=== PATIENT | male | born 1965 | race Caucasian/White ===

== ENCOUNTER 2018-03-21 20:31 | Emergency (ER) | payer OTHER ==
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
[2018-03-21 22:29] VITALS: BP 124/95; PULSE 94; RESP 18; TEMP 98.7
== END 2018-03-21 22:29 | disposition home or self-care (01) ==
LOC: EC 20:31
DX: S80.12XA Contusion of left lower leg, initial encounter (principal); G89.29 Other chronic pain; M54.5 Low back pain; F17.200 Nicotine dependence, unspecified, uncomplicated; Z88.6 Allergy status to analgesic agent; V49.49XA Driver injured in collision with other motor vehicles in traffic accident, initial encounter; Y92.410 Unspecified street and highway as the place of occurrence of the external cause
CPT/HCPCS: 71046; 72100; 99284

== ENCOUNTER 2021-02-12 09:46 | Emergency (ER) | payer OTHER ==
[2021-02-12 09:57] VITALS: RESP 18; TEMP 98.3
[2021-02-12] MEDS ORDERED: SODIUM CHLORIDE 0.9% 500 ML 500 ML IV STA (10:20)
[2021-02-12] MEDS ORDERED: KETOROLAC 15 MG/ML 1 ML VIAL IVP STA (10:20)
[2021-02-12 10:39] LABS: Basophils # (A) 0.1 k/uL (0-0.2); Basophils % (A) 1 %; Eosinophils # (A) 0.1 k/uL (0-0.7); Eosinophils % (A) 1 %; HCT 38.8 % (39.0-53.0); Lymphocytes # (A) 1.8 k/uL (1.0-4.8); Lymphocytes % (A) 23 %; MCH 33.4 pg (25.0-35.0); MCHC 36.1 g/dL (31.0-37.0); MCV 92.5 fL (80.0-100.0); Mean Platelet Volume 8.3; Monocytes # (A) 0.3 k/uL (0-1.0); Monocytes % (A) 4 %; Neutrophils # (A) 5.4 k/uL (1.3-7.7); Neutrophils % (A) 69 %; Platelet Count 152 k/uL (150-450); RDW 13.7 % (11.5-15.5); WBC 7.9 k/uL (3.8-10.6)
[2021-02-12 10:45] LABS: Appearance,Urine Clear (Clear); Bacteria,Urine Rare /hpf; Bilirubin,Urine Negative (Negative); Blood,Urine Large (Negative); Color,Urine Yellow; Glucose,Urine (UA) Negative (Negative); Hyaline Casts,Urine 1 /lpf (0-2); Ketones,Urine Trace (Negative); Leukocyte Esterase,Urine Negative (Negative); Mucus,Urine Few /hpf; Nitrite,Urine Negative (Negative); PH, Urine 6.5 (5.0-8.0); Protein,Urine Trace (Negative); RBC,Urine 149 /hpf (0-5); Specific Gravity,Urine 1.011 (1.001-1.035); Squamous Epithelial Cell,Urine <1 /hpf (0-4); WBC,Urine 8 /hpf (0-5)
--- NOTE | 2021-02-12 10:52 | ED ---
Male Urogenital HPI - General Chief complaint: Urogenital Stated complaint: Urogenital Time Seen by Provider: 02/12/21 10:05 Source: patient, family, RN notes reviewed Mode of arrival: wheelchair Limitations: no limitations - History of Present Illness Initial comments: Patient is a 55-year-old male presenting to the emergency Department with complaints of hematuria has been intermittent over the past 2-3 days. Patient is also been having some back pain that is out of the ordinary for him. He did go to [facility] last week for the back pain that, they did do x-rays, no acute findings, they gave him lidocaine patches as well as Aleve. He states he continues to have back pain and the hematuria started. He denies any abdominal pain, no nausea or vomiting, no fevers or chills. He has been having some body aches. No cough or congestion. He's never had this issue in the past. He takes no other medications. He has no further complaints. His vitals are stable upon arrival. - Related Data Previous Rx's Medication Instructions Recorded HYDROcodone/APAP 5-325MG [[place] 1 tab PO Q6HR PRN #12 tab 03/21/18 5-325] Allergies Allergy/AdvReac Type Severity Reaction Status Date / Time No Known Allergies Allergy Verified 02/12/21 09:56 Review of Systems ROS Statement: Those systems with pertinent positive or pertinent negative responses have been documented in the HPI. ROS Other: All systems not noted in ROS Statement are negative. Past Medical History Past Medical History: Hypertension History of Any Multi-Drug Resistant Organisms: None Reported Past Surgical History: No Surgical Hx Reported Past Psychological History: No Psychological Hx Reported Smoking Status: Current every day smoker Past Alcohol Use History: Occasional Past Drug Use History: Marijuana General Exam - General Exam Comments Initial Comments: GENERAL: Patient is well-developed and well-nourished. Patient is nontoxic and in no acute distress. HEAD: Atraumatic, normocephalic. EYES: Pupils equal round and reactive to light, extraocular movements intact, sclera anicteric, conjunctiva are normal. Eyelids were unremarkable. ENT: Moist mucous membranes. NECK: Normal range of motion, supple without lymphadenopathy or JVD. LUNGS: Unlabored respirations. Breath sounds clear to auscultation bilaterally and equal. No wheezes rales or rhonchi. HEART: Regular rate and rhythm without murmurs, rubs or gallops. ABDOMEN: Soft, nontender, normoactive bowel sounds. No guarding, no rebound. No masses appreciated. MUSCULOSKELETAL: Normal extremities with adequate strength and normal range of motion, no pitting or edema. No clubbing or cyanosis. NEUROLOGICAL: Patient is alert and oriented x 3. SKIN: Warm, Dry, normal turgor, no rashes or lesions noted. Limitations: no limitations Course Vital Signs 02/12/21 09:54 Temperature 98.3 F Pulse Rate 73 Respiratory 18 Rate Blood Pressure 131/81 O2 Sat by Pulse 96 Oximetry Medical Decision Making - Medical Decision Making Patient is a 55-year-old male here for hematuria over the past couple days. No abdominal pain, no fevers or chills. He's never had this before. He's been also having low back pain is out of the ordinary for him. His vitals are stable upon arrival. Urine shows large amount of blood, 8 wbc's, rare bacteria. Ultrasound reveals a thickened bladder wall cholecystitis, an enlarged irregular prostate. I discussed these findings with the patient. I recommended following up with urology. I will give him some Zofran for his nausea. He is agreeable to this plan of care. He will continue taking Tylenol and/or Motrin for his back pain. Return parameters were discussed with him and he verbalized understanding. Case discussed with Dr. Bryant. - Lab Data Result diagrams: 02/12/21 10:22 02/12/21 10:22 Lab Results 02/12/21 02/12/21 02/12/21 Range/Units 10:22 10:22 10:22 WBC 7.9 (3.8-10.6) k/uL RBC 4.20 L (4.30-5.90) m/uL Hgb 14.0 (13.0-17.5) gm/dL Hct 38.8 L (39.0-53.0) % MCV 92.5 (80.0-100.0) fL MCH 33.4 (25.0-35.0) pg MCHC 36.1 (31.0-37.0) g/dL RDW 13.7 (11.5-15.5) % Plt Count 152 (150-450) k/uL MPV 8.3 Neutrophils % 69 % Lymphocytes % 23 % Monocytes % 4 % Eosinophils % 1 % Basophils % 1 % Neutrophils # 5.4 (1.3-7.7) k/uL Lymphocytes # 1.8 (1.0-4.8) k/uL Monocytes # 0.3 (0-1.0) k/uL Eosinophils # 0.1 (0-0.7) k/uL Basophils # 0.1 (0-0.2) k/uL Sodium 135 L (137-145) mmol/L Potassium 3.4 L (3.5-5.1) mmol/L Chloride 100 (98-107) mmol/L Carbon Dioxide 27 (22-30) mmol/L Anion Gap 8 mmol/L BUN 11 (9-20) mg/dL Creatinine 0.53 L (0.66-1.25) mg/dL Est GFR (CKD-EPI)AfAm >90 (>60 ml/min/1.73 sqM) Est GFR (CKD-EPI)NonAf >90 (>60 ml/min/1.73 sqM) Glucose 121 H (74-99) mg/dL Calcium 9.5 (8.4-10.2) mg/dL Total Bilirubin 0.8 (0.2-1.3) mg/dL AST 122 H (17-59) U/L ALT 37 (4-49) U/L Alkaline Phosphatase 355 H (38-126) U/L Total Protein 7.0 (6.3-8.2) g/dL Albumin 3.7 (3.5-5.0) g/dL Urine Color Yellow Urine Appearance Clear (Clear) Urine pH 6.5 (5.0-8.0) Ur Specific [place] 1.011 (1.001-1.035) Urine Protein Trace H (Negative) Urine Glucose (UA) Negative (Negative) Urine Ketones Trace H (Negative) Urine Blood Large H (Negative) Urine Nitrite Negative (Negative) Urine Bilirubin Negative (Negative) Urine Urobilinogen 6.0 (<2.0) mg/dL Ur Leukocyte Esterase Negative (Negative) Urine RBC 149 H (0-5) /hpf Urine WBC 8 H (0-5) /hpf Ur Squamous Epith Cells <1 (0-4) /hpf Urine Bacteria Rare H (None) /hpf Hyaline Casts 1 (0-2) /lpf Urine Mucus Few H (None) /hpf Disposition Clinical Impression: Hematuria Disposition: HOME SELF-CARE Condition: Stable Instructions (If sedation given, give patient instructions): Hematuria (ED) Additional Instructions: Please return to the Emergency Department if symptoms worsen or any other c oncerns. May take Zofran for any additional nausea or vomiting. Please follow up with urology concerning the blood in your urine. Is patient prescribed a controlled substance at d/c from ED?: No Referrals: None,Stated [Primary Care Provider] - 1-2 days Basil Gill MD [STAFF PHYSICIAN] - 1-2 days Time of Disposition: 12:06
[2021-02-12 10:56] LABS: ALT 37 U/L (4-49); AST 122 U/L (17-59); African American GFR (CKD) >90 (>60 ml/min/1.73 sqM); Albumin 3.7 g/dL (3.5-5.0); Alkaline Phosphatase 355 U/L (38-126); Anion Gap 8 mmol/L; Blood Urea Nitrogen 11 mg/dL (9-20); Calcium 9.5 mg/dL (8.4-10.2); Carbon Dioxide 27 mmol/L (22-30); Chloride 100 mmol/L (98-107); Glucose 121 mg/dL (74-99); Non-African American GFR(CKD) >90 (>60 ml/min/1.73 sqM); Potassium 3.4 mmol/L (3.5-5.1); Sodium 135 mmol/L (137-145); Total Bilirubin 0.8 mg/dL (0.2-1.3)
--- NOTE | 2021-02-12 11:38 | US ---
EXAMINATION TYPE: US kidneys/renal and bladder DATE OF EXAM: 02/12/2021 COMPARISON: NONE CLINICAL HISTORY: back pain, hematuria. EXAM MEASUREMENTS: Right Kidney: 11.3x5.6x5.1 cm Left Kidney: 12.0x5.4x6.5 cm Prominent prostate 4.8x5.5x4.7cm Right Kidney: Scarring seen throughout, Inf/ Med cyst with septation =1.3x1.1x1.3cm Left Kidney: No hydronephrosis or masses seen Bladder: Wall appears thickened measuring 0.5cm Bilateral Jets seen: No IMPRESSION: 1. Thickened bladder wall correlate for cystitis. 2. There is a ly enlarged and irregular prostate correlate with PSA. 3. Defect involving the right kidney with septation most likely related to cyst.
[2021-02-12] MEDS ORDERED: ONDANSETRON 4 MG ODT STARTER PACK 2 TAB BTL PO STA (12:06)
[2021-02-12 12:30] VITALS: BP 136/88; PULSE 79
== END 2021-02-12 12:30 | disposition home or self-care (01) ==
LOC: EC 09:46
DX: R31.9 Hematuria, unspecified (principal); I10 Essential (primary) hypertension; F17.200 Nicotine dependence, unspecified, uncomplicated; F12.90 Cannabis use, unspecified, uncomplicated
CPT/HCPCS: 99284; 96374; 36415; 80053; 85025; 81001; 76770; J1885; S0119

== ENCOUNTER → 2021-02-24 | Outpatient (CLI) | payer OTHER ==
[2021-02-24 09:10] LABS: African American GFR (CKD) >90 (>60 ml/min/1.73 sqM); Blood Urea Nitrogen 16 mg/dL (9-20); Non-African American GFR(CKD) >90 (>60 ml/min/1.73 sqM)
--- NOTE | 2021-02-24 10:43 | CT ---
EXAMINATION TYPE: CT urogram wo/w con DATE OF EXAM: 02/24/2021 COMPARISON: 02/12/2021 ultrasound HISTORY: Gross hematuria CT DLP: 1040.3 mGycm, Automated Exposure Control for Dose Reduction was Utilized. CONTRAST: CT scan of the abdomen and pelvis is performed with oral and with IV Contrast, patient injected with 100 mL of Isovue 300. FINDINGS: LUNG BASES: There are multiple pulmonary nodules seen involving the lung base. The largest measures 1 cm. Emphysematous changes involving the lung bases. LIVER/GB: No significant abnormality is appreciated. PANCREAS: No significant abnormality is seen. SPLEEN: No significant abnormality is seen. ADRENALS: No significant abnormality is seen. KIDNEYS: There is a 1 cm right renal lesion which measures 18 Hounsfield units. No hydronephrosis or nephrolithiasis. Ureters are segmentally demonstrated to be of normal course and caliber with no defi nite filling defect. On noncontrast exam there is a suggestion of thickening along the posterior bladder wall and areas of abnormal attenuation which could represent neoplasm or hemorrhage. BOWEL: No significant abnormality is seen. PROSTATE/SEMINAL VESICLES: There is enlargement of the prostate gland.. LYMPH NODES: No greater than 1cm abdominal or pelvic lymph nodes are appreciated. OSSEOUS STRUCTURES: No significant abnormality is seen. OTHER: No significant additional abnormality is seen. IMPRESSION: 1. Right renal lesion measures 18 Hounsfield units and does not meet the criteria of simple cyst eloisa mmend MRI. 2. Prostate hypertrophy correlate with PSA. 3. There are multiple pulmonary nodules involving the lung bases. Dedicated CT of the chest is recomm ended for further evaluation. 4. There is abnormal attenuation within the bladder could represent hemorrhage or mass recommend cyst oscopy.
== END | disposition home or self-care (01) ==
LOC: RADCTMAIN 08:16
PROVIDERS: ATTEND Urology
DX: N28.9 Disorder of kidney and ureter, unspecified (principal); N40.0 Benign prostatic hyperplasia without lower urinary tract symptoms; R93.41 Abnormal radiologic findings on diagnostic imaging of renal pelvis, ureter, or bladder; R91.8 Other nonspecific abnormal finding of lung field
CPT/HCPCS: 82565; 84520; 74178; 36415; 74400; Q9967

== ENCOUNTER 2021-03-04 06:09 | Inpatient (IN) | payer OTHER ==
--- NOTE | 2021-03-03 17:02 | P.HPIHPCON ---
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 Discussed with him given this finding I recommend proceeding with a TURP, TURBT to obtain tissue from the prostate and the bladder to assess for prostate versus bladder cancer. Discussed with him the risk of bleeding, infection, urinary incontinence, potential of needing additional procedure. Discussed with him given the extensive involvement of the prostate potential of major bleeding. Discussed also with him if significant bleeding is encountered then we'll do partial resection and await final pathology. He understood all the risk and agreed to proceed with a TURBT/TURP Consent for Procedure: I have explained the operation/procedure to the patient, including the risks, benefits, side effects, alternative therapies (including not receiving the proposed treatment or service), the likelihood of the patient achieving his/her goals, and potential recuperation problems for the procedure/sedation/analgesia, as well as any blood products, if indicated. I also explained to the patient the risks, benefits and side effects of the alternatives, as well as the risks related to not receiving the proposed procedure, care, treatment, or services. Past Medical History Past Medical History: Osteoarthritis (OA), Prostate Disorder Additional Past Medical History / Comment(s): Enlarged Prostate. History of Any Multi-Drug Resistant Organisms: None Reported Past Surgical History: Orthopedic Surgery Additional Past Surgical History / Comment(s): Knee scope. Past Anesthesia/Blood Transfusion Reactions: No Reported Reaction Past Psychological History: No Psychological Hx Reported Smoking Status: Current every day smoker Past Alcohol Use History: Occasional Additional Past Alcohol Use History / Comment(s): Has been smoking 10+ yrs, 1ppd. Past Drug Use History: None Reported - Past Family History Mother Family Medical History: No Reported History Medications and Allergies Home Medications Medication Instructions Recorded Confirmed Type Ibuprofen 600 mg PO Q8H 02/27/21 02/27/21 History Naproxen [Naprosyn] 500 mg PO BID 02/27/21 02/27/21 History Tamsulosin [Flomax] 0.4 mg PO DAILY 02/27/21 02/27/21 History Allergies Allergy/AdvReac Type Severity Reaction Status Date / Time tramadol [From Ultram] Allergy Nausea Verified 02/27/21 09:52 Surgical - Exam - General no distress, no pain - Eyes PERRL, normal ocular movement - ENT normal nares, normal mucosa - Respiratory normal expansion, normal respiratory effort Assessment and Plan Assessment: OR for a TURP/TURBT
[~2021-03-04 06:09] MED LIST: DEXAMETHASONE SOD PHOSPHATE 4 MG/ML 1 ML VIAL IV ONE; LACTATED RINGERS 1,000 ML IV SCH; LIDOCAINE 1% (10MG/ML) FOR IV START INTRADERMA PRN; MIDAZOLAM 2 MG/2 ML VIAL IV PRN; ONDANSETRON 4 MG/2 ML VIAL IVP ONE
[2021-03-04] MEDS ORDERED: HYDROmorphone 0.5 MG/0.5 ML SYRINGE IVP PRN (07:00)
[2021-03-04] MEDS ORDERED: SUGAMMADEX SODIUM 500 MG/5 ML SDV IV ONE (07:30)
[2021-03-04] MEDS ORDERED: .fentaNYL (PF) 50 MCG/ML 2 ML AMP ONE (07:30)
[2021-03-04] MEDS ORDERED: MIDAZOLAM 2 MG/2 ML VIAL ONE (07:30)
[2021-03-04] MEDS ORDERED: GLYCOPYRROLATE 0.2 MG/ML 2 ML VIAL ONE (07:30)
[2021-03-04] MEDS ORDERED: PROPOFOL 10 MG/ML 20 ML VIAL IV ONE (07:30)
[2021-03-04] MEDS ORDERED: KETAMINE 10 MG/ML 20 ML VIAL ONE (07:30)
[2021-03-04] MEDS ORDERED: ROCURONIUM 10 MG/ML (5 ML VIAL) IV ONE (07:30)
[2021-03-04] MEDS ORDERED: NEOSTIGMINE 1 MG/ML 10 ML VIAL ONE (07:30)
[2021-03-04] MEDS ORDERED: SUCCINYLCHOLINE CHLORIDE 100 MG/5 ML SYR IV ONE (07:30)
[2021-03-04] MEDS ORDERED: PHENYLEPHRINE-0.9% NACL SYG 1,000 MCG/10 ML SYRINGE ONE (07:30)
[2021-03-04] MEDS ORDERED: LIDOCAINE 1% INJ 10MG/ML (20 ML MDV) ONE (07:30)
[2021-03-04 07:58] LABS: Calcium 7.9 mg/dL (8.4-10.2); Potassium 5.4 mmol/L (3.5-5.1)
[2021-03-04] MEDS ORDERED: LACTATED RINGERS 1,000 ML IV ONE (08:38)
[2021-03-04] MEDS ORDERED: IOPAMIDOL-300 50ML BTL MISCELLANE ONE (08:44)
[2021-03-04] MEDS ORDERED: BELLADONNA-OPIUM 16.2-60 MG 1 EACH SUPP RECTAL PRN (09:27)
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
--- NOTE | 2021-03-04 10:32 | FL ---
Fluoroscopy HISTORY: Bladder tumor 2 seconds fluoroscopy time supplied to the referring clinician. 1 intraoperative C-arm images docume nt the procedure. See dictated report from urology.
[2021-03-04] MEDS ORDERED: SODIUM CHLORIDE 0.9% 1,000 ML IV ONE (10:39)
[2021-03-04 11:28] LABS: Albumin 3.5 g/dL (3.5-5.0); Potassium 5.5 mmol/L (3.5-5.1); Total Bilirubin 0.5 mg/dL (0.2-1.3); Total Protein 6.5 g/dL (6.3-8.2)
[2021-03-04 12:30] LABS: Glucose,Whole Blood 142 mg/dL (75-99)
[2021-03-04] MEDS: SODIUM CHLORIDE 0.9% 1,000 ML IV SCH ×2 (13:44→20:12)
[2021-03-04 15:16] LABS: Calcium 7.7 mg/dL (8.4-10.2)
--- NOTE | 2021-03-04 15:36 | P.CNPUL ---
History of Present Illness Consult date: 03/04/21 Requesting physician: Basil Gill Reason for consult: other Chief complaint: Hyponatremia, renal failure. History of present illness: Pulmonary/critical care consultation dated 03/04/2021. 55-year-old male who was seen by urology recently for gross hematuria. Today, the patient underwent a TURBT, TURP, clot evacuation, and cystogram. The patient had a bladder tumor which apparently was invading the prostate. I was called by the urologist after the procedure to asked whether or not the patient could be watched more closely in the intensive care unit. The patient was found to have a sodium of 123, in addition, the patient's BUN was 155 with a creatinine of 10.32. For these reasons, the patient was placed in the intensive care unit. The patient's on room air. The patient's getting saline at 130 mL an hour. He'll be seen by nephrology. The patient was found to have a papilla ry tumor ask any from the bladder neck and involving the entire prostate. Laboratory data includes a sodium 127, potassium 4, chlorides 92, CO2 20, anion gap 15, down from 25, and a BUN and creatinine was at 124 and 6.76. Calcium is 7.7. Review of Systems REVIEW OF SYSTEMS: CONSTITUTIONAL: [Negative.] NEUROLOGIC: [ Negative.] HEENT: [ Negative.] CARDIAC: [Negative.] PULMONARY: [Negative.] GI: [Negative.] : Urinary retention. RHEUMATOLOGIC: [ Negative.] IMMUNOLOGIC: [ Negative.] ENDOCRINE: [Negative. ] DERMATOLOGIC: [Negative.] Past Medical History Past Medical History: Osteoarthritis (OA), Prostate Disorder Additional Past Medical History / Comment(s): Enlarged Prostate. History of Any Multi-Drug Resistant Organisms: None Reported Past Surgical History: Orthopedic Surgery Additional Past Surgical History / Comment(s): Knee scope. Past Anesthesia/Blood Transfusion Reactions: No Reported Reaction Past Psychological History: No Psychological Hx Reported Smoking Status: Current every day smoker Past Alcohol Use History: Occasional Additional Past Alcohol Use History / Comment(s): Has been smoking 10+ yrs, 1ppd. Past Drug Use History: None Reported - Past Family History Mother Family Medical History: No Reported History Medications and Allergies Home Medications Medication Instructions Recorded Confirmed Type Ibuprofen 600 mg PO Q8H 02/27/21 03/04/21 History Naproxen [Naprosyn] 500 mg PO BID 02/27/21 03/04/21 History Tamsulosin [Flomax] 0.4 mg PO DAILY 02/27/21 03/04/21 History Allergies Allergy/AdvReac Type Severity Reaction Status Date / Time tramadol [From Ultram] Allergy Nausea Verified 03/04/21 06:52 Physical Exam Osteopathic Statement: *. No significant issues noted on an osteopathic structural exam other than those noted in the History and Physical/Consult. Vitals: Vital Signs Temp Pulse Pulse Pulse Resp BP BP 03/04/21 15:00 105 H 12 145/79 03/04/21 14:00 112 H 13 129/79 03/04/21 13:00 112 H 17 120/98 03/04/21 12:30 97.6 F 110 H 13 120/87 03/04/21 12:15 102 H 16 134/80 03/04/21 12:00 102 H 16 134/80 03/04/21 11:45 97 16 136/76 03/04/21 11:30 98 16 136/79 03/04/21 11:18 98 16 135/84 03/04/21 11:01 93 16 143/78 03/04/21 10:45 97 16 149/79 03/04/21 10:30 103 H 16 141/87 03/04/21 10:15 109 H 16 123/81 03/04/21 10:00 95 14 137/73 03/04/21 09:42 97 F L 90 14 129/71 03/04/21 06:58 97.6 F 107 H 18 137/71 Pulse Ox 03/04/21 15:00 96 03/04/21 14:00 95 03/04/21 13:00 97 03/04/21 12:30 96 03/04/21 12:15 96 03/04/21 12:00 96 03/04/21 11:45 96 03/04/21 11:30 96 03/04/21 11:18 96 03/04/21 11:01 95 03/04/21 10:45 95 03/04/21 10:30 95 03/04/21 10:15 100 03/04/21 10:00 99 03/04/21 09:42 99 03/04/21 06:58 98 Intake and Output 03/04/21 03/04/21 03/04/21 06:59 14:59 22:59 Intake Total 910 130 Output Total 3220 Balance -2310 130 Intake: IV 910 130 Sodium Chloride 0.9% 1, 260 130 000 ml @ 130 mls/hr IV . Q7H42M [facility] Rx#:[id number] Output: Urine 3200 Estimated Blood Loss 20 Other: Voiding Method Indwelling Catheter Weight 56.3 kg 56.3 kg No acute distress, oriented 3. The patient is not on any supplemental oxygen. HEENT examination is grossly unremarkable. Neck supple. Full range of motion. No adenopathy thyromegaly or neck vein distention. Cardiovascular examination reveals regular rhythm rate. S1-S2 normal. No S3 or S4. No discernible murmur noted. Heart rate 105 bpm. Lungs reveal clear breath sounds. Breath sounds are equal bilaterally. No adventitious lung sounds including wheezes rhonchi or crackles. Room air saturations are 96-97%. Abdomen soft bowel sounds are heard. No masses or tenderness. Extremities are intact. No cyanosis clubbing or edema. Skin is without rash or lesion. Neurologic examination is brief but nonfocal. Results - Laboratory Findings CBC and BMP: 03/04/21 14:31 Abnormal lab findings: Abnormal Labs 03/04/21 03/04/21 03/04/21 07:07 10:29 12:28 Sodium 121 L 123 L Potassium 5.4 H 5.5 H Chloride 84 L 88 L Carbon Dioxide 12 L 16 L BUN 165 H* 155 H* Creatinine 12.10 H* 10.32 H* Glucose 134 H 137 H POC Glucose (mg/dL) 142 H Calcium 7.9 L 8.0 L AST 102 H Alkaline Phosphatase 611 H 03/04/21 14:31 Sodium 127 L Potassium Chloride 92 L Carbon Dioxide 20 L BUN 124 H* Creatinine 6.76 H Glucose 203 H POC Glucose (mg/dL) Calcium 7.7 L AST Alkaline Phosphatase Assessment and Plan Assessment: Postop day #0, status post TURBT, TURP, cystogram, and clot evacuation, secondary to a bladder tumor. Hyponatremia. New onset acute kidney injury/renal failure. History of BPH. History of osteoarthritis. History of ongoing tobacco use with nicotine addiction. Plan: Plan dated 03/04/2021. The patient's resting comfortably in the intensive care unit. He is not requiring any supplemental oxygen. He is getting saline at 130 mL an hour. His renal function is improving. His anion gap is improving. The patient is not having any pain or discomfort. We will continue to follow and make recommendations where appropriate. Also, the patient's sodium is correcting. Additional recommendations and suggestions are forthcoming. Time with Patient: Greater than 30
[2021-03-04] MEDS ORDERED: ceFAZolin 1 GM in SODIUM CHLORIDE 0.9% 100 ML IVPB SCH (16:00)
[2021-03-05] MEDS: SODIUM CHLORIDE 0.45% 1,000 ML IV SCH ×3 (00:40→21:25)
[2021-03-05] MEDS: TAMSULOSIN 0.4 MG CAP.ER.24H PO SCH (08:52)
[2021-03-05 09:53] LABS: Albumin 2.6 g/dL (3.5-5.0); Calcium 8.1 mg/dL (8.4-10.2); Potassium 3.8 mmol/L (3.5-5.1); Total Bilirubin 0.3 mg/dL (0.2-1.3); Total Protein 5.1 g/dL (6.3-8.2)
--- NOTE | 2021-03-05 12:13 | P.PN ---
Progress Note - Text Progress Note Date: 03/05/21 Mr. Escoto underwent TURP, TURBT, and evacuation of clot yesterday. His serum creatinine level has improved dramatically and was 1.38 today. The Jurado catheter is draining blood-tinged urine, as expected. He has no complaints and is urologically stable.
--- NOTE | 2021-03-05 12:19 | P.PN ---
Subjective Progress Note Date: 03/05/21 55-year-old male who was seen by urology recently for gross hematuria. Today, the patient underwent a TURBT, TURP, clot evacuation, and cystogram. The patient had a bladder tumor which apparently was invading the prostate. I was called by the urologist after the procedure to asked whether or not the patient could be watched more closely in the intensive care unit. The patient was found to have a sodium of 123, in addition, the patient's BUN was 155 with a creatinine of 10.32. For these reasons, the patient was placed in the intensive care unit. The patient's on room air. The patient's getting saline at 130 mL an hour. He'll be seen by nephrology. 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 Laboratory data includes a sodium 127, potassium 4, chlorides 92, CO2 20, anion gap 15, down from 25, and a BUN and creatinine was at 124 and 6.76. Calcium is 7.7. The patient is seen today 03/05/2021 in follow-up in the intensive care unit. He is currently sitting up in bed. Awake and alert in no acute distress. Postoperative day #1. He is maintaining good O2 saturations in the 90s on room air. He has 0.45 normal saline at 125 ML's per hour. His sodium is 131. Potassium 3.8. BUN 55. Creatinine down to 1.3. Glucose 183. AST 107. ALT 16. Alk phos 363. Pathology pending. Objective - Vital Signs Vital signs: Vital Signs Temp 97.7 F 03/05/21 04:00 Pulse 152 H 03/05/21 10:00 Resp 40 H 03/05/21 10:00 BP 135/80 03/05/21 09:00 Pulse Ox 97 03/05/21 10:00 Intake & Output 03/04/21 03/05/21 03/05/21 18:59 06:59 18:59 Intake Total 1780 1885 375 Output Total 6646 2918 600 Balance -1516 -4691 -431 Weight 56.3 kg 57.2 kg Intake: IV 1430 1645 375 Sodium Chloride 0.45% 1, 1125 375 000 ml @ 125 mls/hr IV . Q8H [facility] Rx#:[id number] Sodium Chloride 0.9% 1, 780 520 000 ml @ 130 mls/hr IV . Q7H42M [facility] Rx#:[id number] Oral 100 240 Blood Product 250 Output: Urine 4175 3275 600 Estimated Blood Loss 20 Other: Voiding Method Indwelling Catheter Indwelling Catheter Indwelling Catheter - Exam GENERAL EXAM: Alert, active, comfortable in no apparent distress. HEAD: Normocephalic. EYES: Normal reaction of pupils, equal size. NOSE: Clear with pink turbinates. THROAT: No erythema or exudates. NECK: No masses, no JVD. CHEST: No chest wall deformity. LUNGS: Equal air entry with no crackles, wheeze, rhonchi or dullness. CVS: S1 and S2 normal with no audible murmur, regular rhythm. ABDOMEN: No hepatosplenomegaly, normal bowel sounds, no guarding or rigidity. SPINE: No scoliosis or deformity SKIN: No rashes CENTRAL NERVOUS SYSTEM: No focal deficits, tone is normal in all 4 extremities. EXTREMITIES: There is no peripheral edema. No clubbing, no cyanosis. Peripheral pulses are intact. - Labs CBC & Chem 7: 03/05/21 09:10 Labs: Abnormal Lab Results - Last 24 Hours (Table) 03/04/21 03/04/21 03/05/21 Range/Units 12:28 14:31 09:10 Sodium 127 L 131 L (137-145) mmol/L Chloride 92 L (98-107) mmol/L Carbon Dioxide 20 L (22-30) mmol/L BUN 124 H* 55 H (9-20) mg/dL Creatinine 6.76 H 1.38 H (0.66-1.25) mg/dL Glucose 203 H 183 H (74-99) mg/dL POC Glucose (mg/dL) 142 H (75-99) mg/dL Calcium 7.7 L 8.1 L (8.4-10.2) mg/dL AST 107 H (17-59) U/L Alkaline Phosphatase 363 H (38-126) U/L Total Protein 5.1 L (6.3-8.2) g/dL Albumin 2.6 L (3.5-5.0) g/dL Assessment and Plan Assessment: 1 Postop day #1, status post TURBT, TURP, cystogram, and clot evacuation, secondary to a bladder tumor. 2 Hyponatremia. Improving current sodium 131 3 New onset acute kidney injury/renal failure. Improving, currently 1.38 creatinine 4 History of BPH. 5 History of osteoarthritis. 6 History of ongoing tobacco use with nicotine addiction. Plan: The patient was seen and evaluated by Dr. Jalloh He is stable for transfer out of the ICU We will see as needed I, the cosigning physician, performed a history & physical examination of the patient. Lungs sounds are clear. Maintaining good O2 saturations in the 90s on room air. I discussed the assessment and plan of care with my nurse pract Silke feng. I attest to the above note as dictated by her.
[2021-03-05 12:41] LABS: MCH 32.3 pg (25.0-35.0); MCHC 35.4 g/dL (31.0-37.0); MCV 91.3 fL (80.0-100.0); Mean Platelet Volume 8.9; RBC 1.61 m/uL (4.30-5.90); RDW 14.9 % (11.5-15.5)
[2021-03-05 12:47] LABS: HCT 14.7 % (39.0-53.0); HGB 5.2 gm/dL (13.0-17.5)
--- NOTE | 2021-03-05 13:20 | P.NPCON ---
History of Present Illness - Reason for Consult Consult date: 03/05/21 acute renal failure, hyperkalemia - Chief Complaint Hematuria - History of Present Illness Admitted to the hospital with hematuria, underwent cystoscopy with TURP. He has papillary tumor at the bladder neck with enlarged prostate. On admission creatinine was around 10 with hyperkalemia of 5.5. Urine output of more than 7 L in the last 24 hours and creatinine improved to 1.3 MG per DL. He takes ibuprofen at home. No recent contrast studies, denies diabetes or hypertension. Review of Systems Constitutional: Reports as per HPI Past Medical History Past Medical History: Osteoarthritis (OA), Prostate Disorder Additional Past Medical History / Comment(s): Enlarged Prostate. History of Any Multi-Drug Resistant Organisms: None Reported Past Surgical History: Orthopedic Surgery Additional Past Surgical History / Comment(s): Knee scope. Past Anesthesia/Blood Transfusion Reactions: No Reported Reaction Past Psychological History: No Psychological Hx Reported Smoking Status: Current every day smoker Past Alcohol Use History: Occasional Additional Past Alcohol Use History / Comment(s): Has been smoking 10+ yrs, 1ppd. Past Drug Use History: None Reported - Past Family History Mother Family Medical History: No Reported History Medications and Allergies Home Medications Medication Instructions Recorded Confirmed Type Ibuprofen 600 mg PO Q8H 02/27/21 03/04/21 History Naproxen [Naprosyn] 500 mg PO BID 02/27/21 03/04/21 History Tamsulosin [Flomax] 0.4 mg PO DAILY 02/27/21 03/04/21 History Allergies Allergy/AdvReac Type Severity Reaction Status Date / Time tramadol [From [facility]] Allergy Nausea Verified 03/04/21 06:52 Physical Exam Vitals: Vital Signs Temp Pulse Pulse Resp BP Pulse Ox 03/05/21 10:00 152 H 40 H 97 03/05/21 09:00 123 H 13 135/80 96 03/05/21 08:00 125 H 17 100/74 94 L 03/05/21 07:00 129 H 18 130/75 96 03/05/21 06:00 120 H 13 133/73 96 03/05/21 05:00 120 H 11 L 130/82 97 03/05/21 04:00 97.7 F 118 H 12 125/75 96 03/05/21 03:00 112 H 18 109/79 94 L 03/05/21 02:00 115 H 12 125/84 94 L 03/05/21 01:00 115 H 12 122/76 97 03/05/21 00:13 129 H 22 97 03/05/21 00:00 98.8 F 134 H 19 124/73 96 03/04/21 23:00 125 H 15 130/77 95 03/04/21 22:00 140 H 17 124/72 97 03/04/21 21:00 129 H 16 120/76 98 03/04/21 20:00 98 F 120 H 19 118/67 97 03/04/21 19:00 13 118/67 98 03/04/21 18:00 121 H 16 124/76 98 03/04/21 17:00 113 H 12 128/82 97 03/04/21 16:00 97.9 F 114 H 102 H 15 132/82 97 03/04/21 15:00 105 H 12 145/79 96 03/04/21 14:00 112 H 13 129/79 95 Intake and Output 03/04/21 03/05/21 03/05/21 22:59 06:59 14:59 Intake Total 1630 1125 375 Output Total 2300 1950 600 Balance -670 -825 -225 Intake: IV 1040 1125 375 Sodium Chloride 0.45% 1, 1125 375 000 ml @ 125 mls/hr IV . Q8H [facility] Rx#:[id number] Sodium Chloride 0.9% 1, 1040 000 ml @ 130 mls/hr IV . Q7H42M [facility] Rx#:[id number] Oral 340 Blood Product 250 Output: Urine 2300 1950 600 Other: Voiding Method Indwelling Catheter Indwelling Catheter Indwelling Catheter Weight 57.2 kg Acute distress S1-S2 heard Lungs clear Jurado with hematuria No edema Results - Lab Results Most recent lab results Calcium 8.1 mg/dL (8.4-10.2) L 03/05/21 09:10 03/05/21 12:25 03/05/21 09:10 Assessment and Plan Assessment: #1 acute kidney injury secondary to obstructive uropathy with bladder neck obstruction. 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 #2 appreciate urology input. #3 avoid nephrotoxic agents and NSAID use.
[2021-03-05 13:39] LABS: Platelet Count 51 k/uL (150-450)
[2021-03-05] MEDS: ACETAMINOPHEN TAB 325 MG TAB PO PRN ×2 (14:33→20:54)
[2021-03-05 14:57] LABS: Band Neutrophils % 7 %; Eosinophils # (M) 0.08 k/uL (0-0.7); Metamyelocytes % 2 %; Myelocytes % 3 %; Neutrophils % (M) 54 %; Nucleated Red Blood Cells 2 /100 WBC (0-0); Total Cells Counted 200
[2021-03-05 14:58] LABS: Lymphocytes # (M) 2.19 k/uL (1.0-4.8); Metamyelocytes # (M) 0.16 k/uL (0); Monocytes # (M) 0.65 k/uL (0-1.0); Myelocytes # (M) 0.24 k/uL (0); WBC 8.1 k/uL (3.8-10.6)
[2021-03-06 00:49] LABS: HCT 22.9 % (39.0-53.0); Hyperchromasia Slight; MCH 30.6 pg (25.0-35.0); MCHC 34.9 g/dL (31.0-37.0); MCV 87.6 fL (80.0-100.0); Mean Platelet Volume 9.6; RBC 2.61 m/uL (4.30-5.90); RDW 14.9 % (11.5-15.5)
[2021-03-06 00:54] LABS: Platelet Count 37 k/uL (150-450)
[2021-03-06 02:39] LABS: Anisocytosis (M) Present; Band Neutrophils % 27 %; Eosinophils # (M) 0.23 k/uL (0-0.7); Metamyelocytes # (M) 0.11 k/uL (0); Metamyelocytes % 1 %; Monocytes # (M) 0.23 k/uL (0-1.0); Myelocytes # (M) 0.11 k/uL (0); Myelocytes % 1 %; Neutrophils % (M) 37 %; Nucleated Red Blood Cells 6 /100 WBC (0-0); Total Cells Counted 200; WBC 11.3 k/uL (3.8-10.6)
[2021-03-06 02:40] LABS: Poikilocytosis (M) Present
[2021-03-06] MEDS: ACETAMINOPHEN TAB 325 MG TAB PO PRN ×2 (03:05→22:00)
[2021-03-06 05:01] LABS: HCT 22.3 % (39.0-53.0); HGB 7.7 gm/dL (13.0-17.5); MCH 30.6 pg (25.0-35.0); MCHC 34.4 g/dL (31.0-37.0); MCV 88.9 fL (80.0-100.0); Mean Platelet Volume 10.9; Poikilocytosis Slight; RBC 2.51 m/uL (4.30-5.90); RDW 15.3 % (11.5-15.5)
[2021-03-06 05:05] LABS: Platelet Count 41 k/uL (150-450)
[2021-03-06 08:16] LABS: Band Neutrophils % 6 %; Metamyelocytes # (M) 0.41 k/uL (0); Metamyelocytes % 4 %; Monocytes # (M) 0.72 k/uL (0-1.0); Myelocytes # (M) 0.21 k/uL (0); Myelocytes % 2 %; Neutrophils % (M) 48 %; Nucleated Red Blood Cells 5 /100 WBC (0-0); Total Cells Counted 200; WBC 10.3 k/uL (3.8-10.6)
[2021-03-06 08:17] LABS: Mixed Population RBC Present
[2021-03-06] MEDS: SODIUM CHLORIDE 0.45% 1,000 ML IV SCH ×2 (10:04→13:12)
[2021-03-06] MEDS: TAMSULOSIN 0.4 MG CAP.ER.24H PO SCH (10:06)
--- NOTE | 2021-03-06 12:24 | P.PN ---
Subjective Progress Note Date: 03/06/21 Low for acute kidney injury. Has Jurado catheter, gross hematuria. Wants to go home. Objective - Vital Signs Vital signs: Vital Signs Temp 98.5 F 03/06/21 11:01 Pulse 112 H 03/06/21 11:01 Resp 14 03/06/21 11:01 BP 134/84 03/06/21 11:01 Pulse Ox 98 03/06/21 11:01 Intake & Output 03/05/21 03/06/21 03/06/21 18:59 06:59 18:59 Intake Total 985 3075 310 Output Total 1250 1550 Balance -265 1525 310 Weight 57.6 kg Intake: IV 475 1375 Sodium Chloride 0.45% 1, 475 1375 000 ml @ 125 mls/hr IV . Q8H [facility] Rx#:[id number] Oral 200 1080 Blood Product 310 620 310 Rc As-1 Unit 310 [id number] Rc As-1 Unit 0 310 [id number] Rc As-1 Unit 310 [id number] Output: Urine 1250 1550 Other: Voiding Method Indwelling Catheter Indwelling Catheter Indwelling Catheter - Exam No acute distress S1-S2 heard Lungs clear Jurado catheter No edema - Labs CBC & Chem 7: 03/06/21 04:18 03/05/21 09:10 Labs: Abnormal Lab Results - Last 24 Hours (Table) 03/05/21 03/05/21 03/05/21 Range/Units 12:16 12:25 23:06 WBC 11.3 H (3.8-10.6) k/uL RBC 1.61 L 2.61 L (4.30-5.90) m/uL Hgb 5.2 L* D 8.0 L D (13.0-17.5) gm/dL Hct 14.7 L* 22.9 L (39.0-53.0) % Plt Count 51 L D 37 L (150-450) k/uL Metamyelocytes # (Man) 0.16 H 0.11 H (0) k/uL Myelocytes # (Manual) 0.24 H 0.11 H (0) k/uL Nucleated RBCs 2 H 6 H (0-0) /100 WBC Crossmatch See Detail 03/06/21 Range/Units 04:18 WBC (3.8-10.6) k/uL RBC 2.51 L (4.30-5.90) m/uL Hgb 7.7 L (13.0-17.5) gm/dL Hct 22.3 L (39.0-53.0) % Plt Count 41 L (150-450) k/uL Metamyelocytes # (Man) 0.41 H (0) k/uL Myelocytes # (Manual) 0.21 H (0) k/uL Nucleated RBCs 5 H (0-0) /100 WBC Crossmatch Assessment and Plan Assessment: #1 acute kidney injury secondary to obstructive uropathy with bladder neck obstruction. 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 Stop IV fluids #2 appreciate urology input. #3 avoid nephrotoxic agents and NSAID use. #4 stable from nephrology for discharge to be followed up in the office in 1-2 weeks.
[2021-03-06 12:43] LABS: HCT 22.4 % (39.0-53.0); HGB 8.1 gm/dL (13.0-17.5); Hyperchromasia Slight; MCH 30.4 pg (25.0-35.0); MCHC 36.1 g/dL (31.0-37.0); MCV 84.3 fL (80.0-100.0); Mean Platelet Volume 9.2; Poikilocytosis Slight; RBC 2.65 m/uL (4.30-5.90); RDW 15.5 % (11.5-15.5); WBC 10.3 k/uL (3.8-10.6)
[2021-03-06 12:49] LABS: Platelet Count 28 k/uL (150-450)
--- NOTE | 2021-03-06 13:59 | P.PN ---
Subjective Progress Note Date: 03/06/21 55-year-old male who was seen by urology recently for gross hematuria. Today, the patient underwent a TURBT, TURP, clot evacuation, and cystogram. The patient had a bladder tumor which apparently was invading the prostate. I was called by the urologist after the procedure to asked whether or not the patient could be watched more closely in the intensive care unit. The patient was found to have a sodium of 123, in addition, the patient's BUN was 155 with a creatinine of 10.32. For these reasons, the patient was placed in the intensive care unit. The patient's on room air. The patient's getting saline at 130 mL an hour. He'll be seen by nephrology. 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 Laboratory data includes a sodium 127, potassium 4, chlorides 92, CO2 20, anion gap 15, down from 25, and a BUN and creatinine was at 124 and 6.76. Calcium is 7.7. The patient is seen today 03/05/2021 in follow-up in the intensive care unit. He is currently sitting up in bed. Awake and alert in no acute distress. Postoperative day #1. He is maintaining good O2 saturations in the 90s on room air. He has 0.45 normal saline at 125 ML's per hour. His sodium is 131. Potassium 3.8. BUN 55. Creatinine down to 1.3. Glucose 183. AST 107. ALT 16. Alk phos 363. Pathology pending. The patient is seen today 03/06/2021 in follow-up in the intensive care unit. He is a surgical surgical overflow. He is sitting up in bed. Awake and alert in no acute distress. He is maintaining O2 saturations in the 90s on room air. He has 0.45 normal saline at 125 mL per hour. His hemoglobin was 7.7 and he was transfused 1 unit of packed red blood cells. Current hemoglobin 8.1. White count 10.3. Pathology still pending. Objective - Vital Signs Vital signs: Vital Signs Temp 98.5 F 03/06/21 11:01 Pulse 112 H 03/06/21 11:01 Resp 14 03/06/21 11:01 BP 134/84 03/06/21 11:01 Pulse Ox 98 03/06/21 11:01 Intake & Output 03/05/21 03/06/21 03/06/21 18:59 06:59 18:59 Intake Total 985 3075 1060 Output Total 1250 1550 1300 Balance -265 1525 -240 Weight 57.6 kg Intake: IV 475 1375 750 Sodium Chloride 0.45% 1, 475 1375 750 000 ml @ 75 mls/hr IV . [id number] Rx#:[id number] Oral 200 1080 Blood Product 310 620 310 Rc As-1 Unit 310 [id number] Rc As-1 Unit 0 310 [id number] Rc As-1 Unit 310 [id number] Output: Urine 1250 1550 1300 Other: Voiding Method Indwelling Catheter Indwelling Catheter Indwelling Catheter - Exam GENERAL EXAM: Alert, active, comfortable in no apparent distress. HEAD: Normocephalic. EYES: Normal reaction of pupils, equal size. NOSE: Clear with pink turbinates. THROAT: No erythema or exudates. NECK: No masses, no JVD. CHEST: No chest wall deformity. LUNGS: Equal air entry with no crackles, wheeze, rhonchi or dullness. CVS: S1 and S2 normal with no audible murmur, regular rhythm. ABDOMEN: No hepatosplenomegaly, normal bowel sounds, no guarding or rigidity. SPINE: No scoliosis or deformity SKIN: No rashes CENTRAL NERVOUS SYSTEM: No focal deficits, tone is normal in all 4 extremities. EXTREMITIES: There is no peripheral edema. No clubbing, no cyanosis. Peripheral pulses are intact. - Labs CBC & Chem 7: 03/06/21 12:17 03/05/21 09:10 Labs: Abnormal Lab Results - Last 24 Hours (Table) 03/05/21 03/05/21 03/05/21 Range/Units 12:16 12:25 23:06 WBC 11.3 H (3.8-10.6) k/uL RBC 2.61 L (4.30-5.90) m/uL Hgb 8.0 L D (13.0-17.5) gm/dL Hct 22.9 L (39.0-53.0) % Plt Count 51 L D 37 L (150-450) k/uL Metamyelocytes # (Man) 0.16 H 0.11 H (0) k/uL Myelocytes # (Manual) 0.24 H 0.11 H (0) k/uL Nucleated RBCs 2 H 6 H (0-0) /100 WBC Crossmatch See Detail 03/06/21 03/06/21 Range/Units 04:18 12:17 WBC (3.8-10.6) k/uL RBC 2.51 L 2.65 L (4.30-5.90) m/uL Hgb 7.7 L 8.1 L (13.0-17.5) gm/dL Hct 22.3 L 22.4 L (39.0-53.0) % Plt Count 41 L 28 L (150-450) k/uL Metamyelocytes # (Man) 0.41 H (0) k/uL Myelocytes # (Manual) 0.21 H (0) k/uL Nucleated RBCs 5 H (0-0) /100 WBC Crossmatch Assessment and Plan Assessment: 1 Postop day #2, status post TURBT, TURP, cystogram, and clot evacuation, secondary to a bladder tumor. Follow G pending 2 Hyponatremia. Improving current sodium 131 3 New onset acute kidney injury/renal failure. Improving, currently 1.38 creatinine 4 History of BPH. 5 History of osteoarthritis. 6 History of ongoing tobacco use with nicotine addiction. Plan: The patient was seen and evaluated by Dr. Jalloh Remains stable from the pulmonary standpoint Home once cleared by urology I, the cosigning physician, performed a history & physical examination of the patient. Lungs sounds are clear. Maintaining good O2 saturations in the 90s on room air. I discussed the assessment and plan of care with my nurse practitioner, Silke Frederick. I attest to the above note as dictated by her.
--- NOTE | 2021-03-06 16:59 | P.PN ---
Subjective Progress Note Date: 03/06/21 Principal diagnosis: Bladder tumor, hematuria, blood loss anemia The patient is 2 days status post TURPTURBT. He was transfused 2 units of packed RBCs yesterday. His Jurado catheter became occluded overnight. The Jurado catheter was changed this morning by the nursing staff, and by myself this afternoon. Attempts to irrigate the Jurado are unsuccessful. The hemoglobin level this morning was 7.7, and he was transfused a third unit of packed RBCs. He currently reports abdominal pain and nausea. Objective - Vital Signs Vital signs: Vital Signs Temp 98.1 F 03/06/21 14:00 Pulse 111 H 03/06/21 14:00 Resp 11 L 03/06/21 14:00 BP 141/79 03/06/21 14:00 Pulse Ox 95 03/06/21 14:00 Intake & Output 03/05/21 03/06/21 03/06/21 18:59 06:59 18:59 Intake Total 985 3075 1060 Output Total 1250 1550 1300 Balance -265 1525 -240 Weight 57.6 kg Intake: IV 475 1375 750 Sodium Chloride 0.45% 1, 475 1375 750 000 ml @ 75 mls/hr IV . [id number] [facility] Rx#:[id number] Oral 200 1080 Blood Product 310 620 310 Rc As-1 Unit 310 [id number] Rc As-1 Unit 0 310 [id number] Rc As-1 Unit 310 [id number] Output: Urine 1250 1550 1300 Other: Voiding Method Indwelling Catheter Indwelling Catheter Indwelling Catheter - Constitutional General appearance: Present: average body habitus, mild distress - Gastrointestinal Gastrointestinal Comment(s): Soft, suprapubic distention, no guarding, no rebound. - Genitourinary Genitourinary Comment(s): Normal phallus, normal urethral meatus. The scrotum and testes are normal. - Psychiatric Psychiatric: Present: A&O x's 3, appropriate affect - Labs CBC & Chem 7: 03/06/21 12:17 03/05/21 09:10 Labs: Abnormal Lab Results - Last 24 Hours (Table) 03/05/21 03/05/21 03/06/21 Range/Units 12:16 23:06 04:18 WBC 11.3 H (3.8-10.6) k/uL RBC 2.61 L 2.51 L (4.30-5.90) m/uL Hgb 8.0 L D 7.7 L (13.0-17.5) gm/dL Hct 22.9 L 22.3 L (39.0-53.0) % Plt Count 37 L 41 L (150-450) k/uL Metamyelocytes # (Man) 0.11 H 0.41 H (0) k/uL Myelocytes # (Manual) 0.11 H 0.21 H (0) k/uL Nucleated RBCs 6 H 5 H (0-0) /100 WBC Crossmatch See Detail 03/06/21 Range/Units 12:17 WBC (3.8-10.6) k/uL RBC 2.65 L (4.30-5.90) m/uL Hgb 8.1 L (13.0-17.5) gm/dL Hct 22.4 L (39.0-53.0) % Plt Count 28 L (150-450) k/uL Metamyelocytes # (Man) (0) k/uL Myelocytes # (Manual) (0) k/uL Nucleated RBCs (0-0) /100 WBC Crossmatch Assessment and Plan (1) Hematuria Current Visit: No Status: Acute Code(s): R31.9 - HEMATURIA, UNSPECIFIED SNOMED Code(s): 20027730 Plan: Cystoscopy, evacuation of clot, fulguration of bleeders. The rationale for this procedure then reviewed in detail with the patient. He is aware of potential risks, which include anesthesia, bleeding, infection, bladder perforation. It is anticipated that a 3-way Jurado catheter will be placed postoperatively to reduce the likelihood of recurrent clot retention.
[2021-03-06] MEDS ORDERED: NEOSTIGMINE 1 MG/ML 10 ML VIAL ONE (17:38)
[2021-03-06] MEDS ORDERED: ROCURONIUM 10 MG/ML (5 ML VIAL) IV ONE (17:38)
[2021-03-06] MEDS ORDERED: ceFAZolin 1,000 MG VIAL ONE (17:38)
[2021-03-06] MEDS ORDERED: MIDAZOLAM 2 MG/2 ML VIAL ONE (17:38)
[2021-03-06] MEDS ORDERED: .fentaNYL (PF) 50 MCG/ML 2 ML AMP ONE (17:38)
[2021-03-06] MEDS ORDERED: GLYCOPYRROLATE 0.2 MG/ML 2 ML VIAL ONE (17:38)
[2021-03-06] MEDS ORDERED: SODIUM CHLORIDE 0.9% 100 ML BAG ONE (17:38)
[2021-03-06] MEDS ORDERED: PHENYLEPHRINE-0.9% NACL SYG 1,000 MCG/10 ML SYRINGE ONE (17:38)
[2021-03-06] MEDS ORDERED: LIDOCAINE 1% INJ 10MG/ML (20 ML MDV) ONE (17:38)
[2021-03-06] MEDS ORDERED: SUCCINYLCHOLINE CHLORIDE 100 MG/5 ML SYR IV ONE (17:38)
[2021-03-06] MEDS ORDERED: ONDANSETRON 4 MG/2 ML VIAL ONE (17:38)
[2021-03-06] MEDS ORDERED: PROPOFOL 10 MG/ML 20 ML VIAL IV ONE (17:38)
[2021-03-06] MEDS ORDERED: IV FLUID CONTINUATION 900 ML IV ONE ×2 (17:44)
[2021-03-06] MEDS ORDERED: LACTATED RINGERS 1,000 ML IV ONE ×2 (19:10)
[2021-03-06] MEDS ORDERED: SODIUM CHLORIDE 0.9% 1,000 ML IV ONE ×2 (19:12→21:00)
--- NOTE | 2021-03-06 20:35 | P.OP ---
Date of Procedure: 03/06/21 Preoperative Diagnosis: Urinary clot retention Postoperative Diagnosis: Urinary clot retention, bladder perforation Procedure(s) Performed: Cystoscopy, evacuation of clot, exploratory laparotomy with repair of bladder rupture Anesthesia: DULCE MARIAA Surgeon: Edgar Oneill Estimated Blood Loss (ml): 50 IV fluids (ml): 2,200 Pathology: none sent Condition: stable Disposition: PACU Indications for Procedure: The patient is a 55-year-old white male who presented with gross hematuria. 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 He underwent a TURP/TURBT on 03/04/2021. Lab work yesterday showed a significantly decreased hemoglobin level, and the Jurado catheter occluded overnight. The Jurado catheter was replaced but couldn't be adequately irrigated due to clot. Operative Findings: Approximately 800 mL of clot within the bladder. Small extraperitoneal bladder rupture, right anterior bladder wall. Description of Procedure: The patient was taken to the operating room and placed in the dorsolithotomy position, with his legs supported in Danie stirrups. The external genitalia was prepped and draped sterilely. The 30 lens was used to introduce the 22-Thai Stortz cystoscopic sheath through the urethra and into the bladder under direct vision. The anterior urethra appeared normal. The prostatic urethra showed evidence of recent resection. No clot was seen within the prostatic urethra, and there was no active bleeding within the prostatic urethra. Upon entering the bladder, abundant clot was noted. The Yappe evacuator was used to evacuate clot, but little clot was obtained. Furthermore, he was noted to have increased suprapubic distention. It is noteworthy that the abdomen was soft and nondistended cephalad to the umbilicus, and thus an intraperitoneal bladder rupture was felt to be extremely unlikely. Although visualization within the bladder was poor, there appeared to be a rupture on the right anterior bladder wall. At this time, I spoke with the patient's and explained the situation, recommending exploratory laparotomy with evacuation of clot and repair of bladder rupture. She consented and wished for me to proceed. The patient was placed in the supine position. The abdomen and external genitalia were prepped and draped sterilely. The scalpel was used to make a midline infraumbilical skin incision. The Bovie electrocautery was used to incise the linea alba in the midline. The retroperitoneal space was opened. Some serosanguineous fluid was drained. The bladder was very distended. The Bovie electrocautery was used to make an anterior midline cystotomy incision. Approximately 800 mL of clot was removed from the bladder. The bladder was then inspected. A small right anterior bladder wall perforation was noted, measuring approximately 2 cm in length. The patient's bladder was noted to be very thin. Some intravesical extension of the prostate was noted. There was generalized oozing but no significant active bleeding. The Bovie electrocautery was used to cauterize the portion of the prostate extending intravesically. An 18-Thai Jurado catheter was passed through a separate stab incision to the left of the midline surgical incision. A small incision was made in the left anterior bladder wall, and the tip of the Jurado catheter was passed into the bladder. A 3-0 Vicryl pursestring suture was placed around the catheter insertion site. A 20-Thai, 30 mL balloon was passed through the urethra and into the bladder. The bladder perforation was closed in 2 layers. Because the bladder was so thin, 3-0 Vicryl suture was used to close the bladder in a single layer running fashion. A 2-0 Vicryl suture was then placed in a Lembert running fashion to imbricate the incision. Next, the anterior cystotomy incision was closed in an identical fashion. Continuous bladder irrigation was then started using 0.9 normal saline, into the Jurado catheter and out through the suprapubic cystostomy tube. No extravasation of irrigant was noted. A MARYCARMEN drain was passed through a separate stab incision to the right of the midline surgical incision. The drain was left within the space of Retzius, anterior to the bladder. Both the drain in the suprapubic cystostomy tube were secured to the skin using 2-0 nylon suture. The linea alba was closed using #1 double-stranded PDS suture in a running fashion. Inferiorly, and 0 Vicryl suture was placed in a wained-km-ikhnw fashion to bury the PDS knot. It should be noted that hemostasis within the space of Retzius was adequate, and also within the subcutaneous tissues. The skin was closed using jef. All sponge and needle counts were correct. A sterile gauze dressing was applied over the incision. The Jurado catheter was taped to the patient's right thigh on gentle traction. This resulted in complete clearing of the continuous bladder irrigation via the suprapubic cystostomy tube. The patient tolerated the procedure well and was transferred back to the ICU.
[2021-03-06 22:10] LABS: HCT 25.7 % (39.0-53.0); HGB 9.1 gm/dL (13.0-17.5); MCHC 35.2 g/dL (31.0-37.0); MCV 88.1 fL (80.0-100.0); Mean Platelet Volume 8.5; RBC 2.92 m/uL (4.30-5.90); RDW 15.7 % (11.5-15.5)
[2021-03-06 22:13] LABS: Platelet Count 49 k/uL (150-450)
[2021-03-06 22:27] LABS: Band Neutrophils % 22 %; Metamyelocytes % 5 %; Neutrophils % (M) 39 %; Nucleated Red Blood Cells 7 /100 WBC (0-0); Total Cells Counted 200
[2021-03-06 22:28] LABS: Metamyelocytes # (M) 0.47 k/uL (0); Monocytes # (M) 0.47 k/uL (0-1.0); WBC 9.3 k/uL (3.8-10.6)
[2021-03-07] MEDS: ONDANSETRON 4 MG/2 ML VIAL IVP PRN ×2 (03:09→15:21)
[2021-03-07] MEDS: HYDROmorphone 1 MG/ML 1 ML SYRINGE IVP PRN ×3 (03:10→15:31)
[2021-03-07 04:50] LABS: HCT 20.7 % (39.0-53.0); Hyperchromasia Slight; MCH 29.6 pg (25.0-35.0); MCHC 35.1 g/dL (31.0-37.0); MCV 84.2 fL (80.0-100.0); Mean Platelet Volume 9.2; RBC 2.46 m/uL (4.30-5.90); RDW 15.2 % (11.5-15.5)
[2021-03-07 04:57] LABS: HGB 7.3 gm/dL (13.0-17.5); Platelet Count 70 k/uL (150-450)
[2021-03-07 05:18] LABS: African American GFR (CKD) >90 (>60 ml/min/1.73 sqM); Anion Gap 5 mmol/L; Blood Urea Nitrogen 30 mg/dL (9-20); Calcium 7.3 mg/dL (8.4-10.2); Carbon Dioxide 23 mmol/L (22-30); Chloride 103 mmol/L (98-107); Glucose 99 mg/dL (74-99); Non-African American GFR(CKD) >90 (>60 ml/min/1.73 sqM); Potassium 3.9 mmol/L (3.5-5.1); Sodium 131 mmol/L (137-145)
[2021-03-07 05:28] LABS: Band Neutrophils % 28 %; Lymphocytes # (M) 1.34 k/uL (1.0-4.8); Metamyelocytes # (M) 0.43 k/uL (0); Metamyelocytes % 7 %; Monocytes # (M) 0.18 k/uL (0-1.0); Neutrophils % (M) 41 %; Nucleated Red Blood Cells 14 /100 WBC (0-0); Total Cells Counted 200; WBC 6.1 k/uL (3.8-10.6)
[2021-03-07 05:29] LABS: Toxic Granulation Present
[2021-03-07] MEDS ORDERED: SODIUM CHLORIDE 0.9% IRRIGATIO 3,000 ML IRRIGATION ONE (07:07)
[2021-03-07] MEDS: TAMSULOSIN 0.4 MG CAP.ER.24H PO SCH (08:41)
[2021-03-07] MEDS: FERROUS SULFATE 325 MG TAB PO SCH ×2 (08:41→19:10)
[2021-03-07] MEDS: FAMOTIDINE 20 MG TAB PO SCH ×2 (08:41→20:08)
--- NOTE | 2021-03-07 09:20 | P.PN ---
Subjective Patient is seen in follow-up for acute kidney injury. Renal function back to baseline. Nonoliguric. No chest pain or shortness of breath. Vital signs are stable. General: Resting in bed. Awake. HEENT: Head exam is unremarkable. LUNGS: Breath sounds decreased. HEART: Rate and Rhythm are regular. ABDOMEN: Soft, no distention. EXTREMITITES: No edema. Objective - Vital Signs Vital signs: Vital Signs Temp 98 F 03/07/21 09:09 Pulse 80 03/07/21 09:09 Resp 17 03/07/21 09:00 BP 137/87 03/07/21 09:09 Pulse Ox 97 03/07/21 09:09 Intake & Output 03/06/21 03/07/21 03/07/21 18:59 06:59 18:59 Intake Total 1960 3352 3360 Output Total 1700 1050 340 Balance 260 2302 3020 Intake: IV 1650 1500 Sodium Chloride 0.45% 1, 750 000 ml @ 75 mls/hr IV . [id number] [facility] Rx#:[id number] ceFAZolin 1,000 mg In 50 Sodium Chloride 0.9% 50 ml @ 100 mls/hr IVPB Q24H [facility] Rx#:[id number] Intake, IV Titration 3000 Amount IV Fluid Continuation 900 3000 ml @ 0 mls/hr IV .[facility] Rx#:[id number] Oral 600 Blood Product 310 1252 310 Platelet Pheresis Pas 328 Psoralen Unit [id number] Platelet Pheresis Pas 286 Psoralen Unit [id number] Rc As-1 Unit 0 310 [id number] Rc As-1 Unit 310 [id number] Rc As-1 Unit 310 [id number] Other 50 Rc As-1 Unit 50 [id number] Output: Drainage 100 Right 100 Urine 1700 1000 240 Suprapubic 1000 Estimated Blood Loss 50 Other: Voiding Method Indwelling Catheter Indwelling Catheter - Labs CBC & Chem 7: 03/07/21 03:49 03/07/21 03:49 Labs: Abnormal Lab Results - Last 24 Hours (Table) 03/05/21 03/06/21 03/06/21 Range/Units 12:16 12:17 21:20 RBC 2.65 L 2.92 L (4.30-5.90) m/uL Hgb 8.1 L 9.1 L (13.0-17.5) gm/dL Hct 22.4 L 25.7 L (39.0-53.0) % RDW 15.7 H (11.5-15.5) % Plt Count 28 L 49 L D (150-450) k/uL Metamyelocytes # (Man) 0.47 H (0) k/uL Nucleated RBCs 7 H (0-0) /100 WBC Sodium (137-145) mmol/L BUN (9-20) mg/dL Calcium (8.4-10.2) mg/dL Crossmatch See Detail 03/07/21 03/07/21 Range/Units 03:49 03:49 RBC 2.46 L (4.30-5.90) m/uL Hgb 7.3 L D (13.0-17.5) gm/dL Hct 20.7 L (39.0-53.0) % RDW (11.5-15.5) % Plt Count 70 L (150-450) k/uL Metamyelocytes # (Man) 0.43 H (0) k/uL Nucleated RBCs 14 H (0-0) /100 WBC Sodium 131 L (137-145) mmol/L BUN 30 H (9-20) mg/dL Calcium 7.3 L (8.4-10.2) mg/dL Crossmatch Assessment and Plan Plan: Assessment: 1. Acute kidney injury secondary to obstructive uropathy. 2. 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 Urology following. Underwent repair of bladder rupture and evacuation of clot on March 06. 3. Metabolic acidosis secondary to acute kidney injury. Improved. 4. Hyponatremia secondary to acute kidney injury. 5. Acute blood loss anemia status post blood transfusion this admission. Plan: Encouraged oral intake. Off IV fluids. Avoid nephrotoxins.
--- NOTE | 2021-03-07 11:48 | P.CONS ---
History of Present Illness - History of Present Illness This is a pleasant 55 years old male with past medical history of osteoarthritis and prostate hypertrophy. 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 After the procedure patient brought to the ICU for hyponatremia sodium 121-123 since admission, creatinine was elevated 11-10 since admission. Currently his creatinine this morning is normal at 0.89 and sodium improved up to 131. He was treated with normal saline hydration, also Jurado catheter is in place with catheter irrigation Also postprocedure his hemoglobin dropped to 5.2 on 03/05, he transfused 2 units of blood and his hemoglobin improved to 8.0 Today patient lying in bed looks lethargic but is awake. He is in distress due to pain at the Jurado site. Dressing is in place. He is undergoing bladder irrigation. Also he is getting blood transfusion this morning He denies chest pain or dyspnea. No headache or weakness Vitas looks stable and patient is afebrile. Labs reviewed, he had mild leukocytosis on admission 11.3, currently 6.1, hemoglobin dropped from 8.0 down to 7.3 today, initially was 5.2 and received 2 units of blood. Also patient with thrombocytopenia platelets improved today to 70 K. Sodium 131. Creatinine normal 0.8. Coronavirus nondetected. Review of Systems CONSTITUTIONAL: No fever, no malaise, no fatigue. HEENT: No recent visual problems or hearing problems. Denied any sore throat. CARDIOVASCULAR: No orthopnea, PND, no palpitations, no syncope. PULMONARY: No shortness of breath, no cough, no hemoptysis. GASTROINTESTINAL: No diarrhea, no nausea, no vomiting, no abdominal pain. Normoa ctive bowel sounds. NEUROLOGICAL: No headaches, no weakness, no numbness. HEMATOLOGICAL: Denies any bleeding or petechiae. GENITOURINARY: Denies any burning micturition, frequency, or urgency. MUSCULOSKELETAL/RHEUMATOLOGICAL: Denies any joint pain, swelling, or any muscle pain. ENDOCRINE: Denies any polyuria or polydipsia. Past Medical History Past Medical History: Osteoarthritis (OA), Prostate Disorder Additional Past Medical History / Comment(s): Enlarged Prostate. History of Any Multi-Drug Resistant Organisms: None Reported Past Surgical History: Orthopedic Surgery Additional Past Surgical History / Comment(s): Knee scope. Past Anesthesia/Blood Transfusion Reactions: No Reported Reaction Past Psychological History: No Psychological Hx Reported Smoking Status: Current every day smoker Past Alcohol Use History: Occasional Additional Past Alcohol Use History / Comment(s): Has been smoking 10+ yrs, 1ppd. Past Drug Use History: None Reported - Past Family History Mother Family Medical History: No Reported History Medications and Allergies Home Medications Medication Instructions Recorded Confirmed Type Ibuprofen 600 mg PO Q8H 02/27/21 03/04/21 History Naproxen [Naprosyn] 500 mg PO BID 02/27/21 03/04/21 History Tamsulosin [Flomax] 0.4 mg PO DAILY 02/27/21 03/04/21 History Allergies Allergy/AdvReac Type Severity Reaction Status Date / Time tramadol [From [facility]] Allergy Nausea Verified 03/04/21 06:52 Physical Exam Vitals: Vital Signs Temp Pulse Pulse Resp BP BP Pulse Ox 03/07/21 06:44 98.1 F 93 15 130/82 98 03/07/21 05:00 98 13 132/79 97 03/07/21 04:00 98.1 F 98 13 130/73 98 03/07/21 03:58 98.1 F 90 15 130/73 03/07/21 03:00 105 H 17 154/86 98 03/07/21 02:00 95 14 155/84 98 03/07/21 01:00 98 26 H 148/87 98 03/07/21 00:00 89 98 03/06/21 23:00 89 140/85 99 03/06/21 22:00 97.5 F L 96 11 L 137/107 99 03/06/21 21:03 100 16 141/73 100 03/06/21 20:48 102 H 16 143/70 100 03/06/21 20:33 116 H 16 145/80 100 03/06/21 20:18 96.8 F L 122 H 16 168/100 100 03/06/21 14:00 98.1 F 111 H 11 L 141/79 95 03/06/21 13:00 105 H 18 03/06/21 12:00 101 H 17 03/06/21 11:01 98.1 F 76 14 134/80 98 03/06/21 11:00 120 H 15 03/06/21 10:00 104 H 18 03/06/21 09:09 98.0 F 110 H 14 147/87 97 03/06/21 09:00 103 H 10 L 03/06/21 08:39 98.1 F 115 H 20 141/86 97 03/06/21 08:35 97.8 F 122 H 14 144/81 98 03/06/21 08:29 97.8 F 105 H 16 137/85 98 03/06/21 08:00 110 H 14 117/82 Intake and Output 03/06/21 03/07/21 03/07/21 22:59 06:59 14:59 Intake Total 2946 1306 Output Total 575 875 Balance 2371 431 Intake: IV 2350 50 ceFAZolin 1,000 mg In 50 Sodium Chloride 0.9% 50 ml @ 100 mls/hr IVPB Q24H [facility] Rx#:[id number] Oral 600 Blood Product 596 656 Platelet Pheresis Pas 328 Psoralen Unit [id number] Platelet Pheresis Pas 286 Psoralen Unit [id number] Rc As-1 Unit 0 [id number] Rc As-1 Unit 310 [id number] Output: Urine 525 875 Suprapubic 125 875 Estimated Blood Loss 50 Other: Voiding Method Indwelling Catheter Indwelling Catheter GENERAL: The patient is alert and oriented x3, not in any acute distress. Well developed, well nourished. HEENT: Pupils are round and equally reacting to light. EOMI. No scleral icterus. No conjunctival pallor. Normocephalic, atraumatic. No pharyngeal erythema. No thyromegaly. CARDIOVASCULAR: S1 and S2 present. No murmurs, rubs, or gallops. PULMONARY: Chest is clear to auscultation, no wheezing or crackles. ABDOMEN: Soft, nontender, nondistended, normoactive bowel sounds. No palpable organomegaly. MUSCULOSKELETAL: No joint swelling or deformity. EXTREMITIES: No cyanosis, clubbing, or pedal edema. NEUROLOGICAL: Gross neurological examination did not reveal any focal deficits. SKIN: No rashes. No petechiae Results CBC & Chem 7: 03/07/21 03:49 03/07/21 03:49 Labs: Abnormal Lab Results - Last 24 Hours (Table) 03/05/21 03/06/21 03/06/21 Range/Units 12:16 04:18 12:17 RBC 2.65 L (4.30-5.90) m/uL Hgb 8.1 L (13.0-17.5) gm/dL Hct 22.4 L (39.0-53.0) % RDW (11.5-15.5) % Plt Count 41 L 28 L (150-450) k/uL Metamyelocytes # (Man) 0.41 H (0) k/uL Myelocytes # (Manual) 0.21 H (0) k/uL Nucleated RBCs 5 H (0-0) /100 WBC Sodium (137-145) mmol/L BUN (9-20) mg/dL Calcium (8.4-10.2) mg/dL Crossmatch See Detail 03/06/21 03/07/21 03/07/21 Range/Units 21:20 03:49 03:49 RBC 2.92 L 2.46 L (4.30-5.90) m/uL Hgb 9.1 L 7.3 L D (13.0-17.5) gm/dL Hct 25.7 L 20.7 L (39.0-53.0) % RDW 15.7 H (11.5-15.5) % Plt Count 49 L D 70 L (150-450) k/uL Metamyelocytes # (Man) 0.47 H 0.43 H (0) k/uL Myelocytes # (Manual) (0) k/uL Nucleated RBCs 7 H 14 H (0-0) /100 WBC Sodium 131 L (137-145) mmol/L BUN 30 H (9-20) mg/dL Calcium 7.3 L (8.4-10.2) mg/dL Crossmatch Assessment and Plan Assessment: Tumor of the urinary bladder extending to the prostate, status post TURP on 03/04 Urinary Bladder rupture status post exploratory laparotomy and bladder repair on 03/06 gross hematuria secondary to above [place] blood loss anemia secondary to hematuria Thrombocytopenia Hyponatremia, improving Acute kidney injury, resolved Plan: This is a pleasant 55 years old male with urinary bladder tumor status post TURP and urinary bladder repair. Continue with Jurado catheter and bladder irri gation. With urology Noel team on the case follow-up pathology report Continue with antibiotic and Pain management as per primary team Add iron pills pulmonary/critical care team consult , nephrology consult patient is on Flomax Labs and medication were reviewed.. Continue same treatment. Continue with symptomatic treatment. Resume home medication. Monitor lytes and vitals. DVT and GI prophylaxis. Further recommendations depends on the clinical course of the patient DVT prophylaxis: no heparin for hematuria and severe anemia GI Prophylaxis: Ofelia Thank you For consulting us, we'll follow up with you
[2021-03-07] MEDS: SODIUM CHLORIDE 0.9% IRRIGATIO 3,000 ML IRRIGATION ONE ×2 (12:54→16:30)
--- NOTE | 2021-03-07 13:00 | P.PN ---
Subjective Progress Note Date: 03/07/21 55-year-old male who was seen by urology recently for gross hematuria. Today, the patient underwent a TURBT, TURP, clot evacuation, and cystogram. The patient had a bladder tumor which apparently was invading the prostate. I was called by the urologist after the procedure to asked whether or not the patient could be watched more closely in the intensive care unit. The patient was found to have a sodium of 123, in addition, the patient's BUN was 155 with a creatinine of 10.32. For these reasons, the patient was placed in the intensive care unit. The patient's on room air. The patient's getting saline at 130 mL an hour. He'll be seen by nephrology. 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 Laboratory data includes a sodium 127, potassium 4, chlorides 92, CO2 20, anion gap 15, down from 25, and a BUN and creatinine was at 124 and 6.76. Calcium is 7.7. The patient is seen today 03/05/2021 in follow-up in the intensive care unit. He is currently sitting up in bed. Awake and alert in no acute distress. Postoperative day #1. He is maintaining good O2 saturations in the 90s on room air. He has 0.45 normal saline at 125 ML's per hour. His sodium is 131. Potassium 3.8. BUN 55. Creatinine down to 1.3. Glucose 183. AST 107. ALT 16. Alk phos 363. Pathology pending. The patient is seen today 03/06/2021 in follow-up in the intensive care unit. He is a surgical surgical overflow. He is sitting up in bed. Awake and alert in no acute distress. He is maintaining O2 saturations in the 90s on room air. He has 0.45 normal saline at 125 mL per hour. His hemoglobin was 7.7 and he was transfused 1 unit of packed red blood cells. Current hemoglobin 8.1. White count 10.3. Pathology still pending. Patient seen today 03/07/2021 in follow-up in the intensive care unit. He did end up going back for an exploratory laparotomy yesterday with a perforated bladder and repair. There is evacuation of clots. The super tube catheter was placed and he is receiving continuous irrigations now. This is postoperative day #1. He remains awake and alert. On room air oxygen without any desaturations. No IV fluids currently. He is status post 5 units of packed red blood cells and 2 units of platelets so far this admission. White count 6.1. Hemoglobin 7.3. Platelets 70,000. Sodium 131. Potassium 3.9. Creatinine 0.9. He remains on cefazolin. Objective - Vital Signs Vital signs: Vital Signs Temp 97.9 F 03/07/21 12:00 Pulse 96 03/07/21 12:00 Resp 16 03/07/21 12:00 BP 127/94 03/07/21 12:00 Pulse Ox 98 03/07/21 12:00 Intake & Output 03/06/21 03/07/21 03/07/21 18:59 06:59 18:59 Intake Total 1960 3352 3420 Output Total 1700 1050 2045 Balance 260 2302 1375 Intake: IV 1650 1500 Sodium Chloride 0.45% 1, 750 000 ml @ 75 mls/hr IV . [id number] [facility] Rx#:[id number] ceFAZolin 1,000 mg In 50 Sodium Chloride 0.9% 50 ml @ 100 mls/hr IVPB Q24H [facility] Rx#:[id number] Intake, IV Titration 3000 Amount IV Fluid Continuation 900 3000 ml @ 0 mls/hr IV .[facility] Rx#:[id number] Oral 600 60 Blood Product 310 1252 310 Platelet Pheresis Pas 328 Psoralen Unit [id number] Platelet Pheresis Pas 286 Psoralen Unit [id number] Rc As-1 Unit 0 310 [id number] Rc As-1 Unit 310 [id number] Rc As-1 Unit 310 [id number] Other 50 Rc As-1 Unit 50 [id number] Output: Drainage 380 Right 380 Urine 1700 1000 1665 Suprapubic 1000 Estimated Blood Loss 50 Other: Voiding Method Indwelling Catheter Indwelling Catheter Indwelling Catheter - Exam GENERAL EXAM: Alert, 55-year-old male patient, on room air, comfortable in no apparent distress. HEAD: Normocephalic. EYES: Normal reaction of pupils, equal size. NOSE: Clear with pink turbinates. THROAT: No erythema or exudates. NECK: No masses, no JVD. CHEST: No chest wall deformity. LUNGS: Equal air entry with no crackles, wheeze, rhonchi or dullness. CVS: S1 and S2 normal with no audible murmur, regular rhythm. ABDOMEN: Suprapubic catheter in place with irrigation. No hepatosplenomegaly, normal bowel sounds, no guarding or rigidity. SPINE: No scoliosis or deformity SKIN: No rashes CENTRAL NERVOUS SYSTEM: No focal deficits, tone is normal in all 4 extremities. EXTREMITIES: There is no peripheral edema. No clubbing, no cyanosis. Peripher al pulses are intact. - Labs CBC & Chem 7: 03/07/21 03:49 03/07/21 03:49 Labs: Abnormal Lab Results - Last 24 Hours (Table) 03/05/21 03/06/21 03/07/21 Range/Units 12:16 21:20 03:49 RBC 2.92 L 2.46 L (4.30-5.90) m/uL Hgb 9.1 L 7.3 L D (13.0-17.5) gm/dL Hct 25.7 L 20.7 L (39.0-53.0) % RDW 15.7 H (11.5-15.5) % Plt Count 49 L D 70 L (150-450) k/uL Metamyelocytes # (Man) 0.47 H 0.43 H (0) k/uL Nucleated RBCs 7 H 14 H (0-0) /100 WBC Sodium (137-145) mmol/L BUN (9-20) mg/dL Calcium (8.4-10.2) mg/dL Crossmatch See Detail 03/07/21 Range/Units 03:49 RBC (4.30-5.90) m/uL Hgb (13.0-17.5) gm/dL Hct (39.0-53.0) % RDW (11.5-15.5) % Plt Count (150-450) k/uL Metamyelocytes # (Man) (0) k/uL Nucleated RBCs (0-0) /100 WBC Sodium 131 L (137-145) mmol/L BUN 30 H (9-20) mg/dL Calcium 7.3 L (8.4-10.2) mg/dL Crossmatch Assessment and Plan Assessment: 1 Postop day #3, status post TURBT, TURP, cystogram, and clot evacuation, secondary to a bladder tumor. Pathology pending. On 03/06/2021 he was returned to the OR and had undergone cystoscopy with evacuation of clot, exploratory laparotomy with repair of bladder rupture. He has a suprapubic catheter in place with continuous irrigation. Operative day #1. 2 Anemia secondary to above and is status post 5 units of packed red blood cells this admission. 2 units of platelets. 3 Hyponatremia. Improving current sodium 131 4 New onset acute kidney injury/renal failure. Improving, currently 0.89 creatinine 5 History of BPH. 6 History of osteoarthritis. 7 History of ongoing tobacco use with nicotine addiction. Plan: The patient was seen and evaluated by Dr. Jalloh The patient was returned to the OR yesterday for exploratory laparotomy New suprapubic catheter in place with continuous irrigation We will continue to follow and make further recommendations based on his clinical status I, the cosigning physician, performed a history & physical examination of the patient. Lungs sounds are clear. Maintaining good O2 saturations in the 90s on room air. I discussed the assessment and plan of care with my nurse practitioner, Silke Frederick. I attest to the above note as dictated by her.
--- NOTE | 2021-03-07 13:04 | P.PN ---
Subjective Progress Note Date: 03/07/21 Principal diagnosis: Bladder tumor, hematuria, blood loss anemia The patient underwent TURPTURBT on 03/04/2021. He required transfusion on 03/05/2021. He was returned to the operating room yesterday for urinary clot retention, and was found to have a bladder perforation, for which he underwent open repair. This morning, he was noted to have increased MARYCARMEN drain output and saturation of his incisional dressing. The Jurado catheter was irrigated, and several hundred mL of urine was drained from the bladder. The Jurado catheter remains on traction. Continuous irrigation was switched such that the fluid entered the bladder via the suprapubic tube and drained out of the Jurado catheter. He developed increased hematuria following that switch, but the catheter drained well and MARYCARMEN output immediately decreased. His only complaint at this time his lower abdominal discomfort. Objective - Vital Signs Vital signs: Vital Signs Temp 97.9 F 03/07/21 12:00 Pulse 96 03/07/21 12:00 Resp 16 03/07/21 12:00 BP 127/94 03/07/21 12:00 Pulse Ox 98 03/07/21 12:00 Intake & Output 03/06/21 03/07/21 03/07/21 18:59 06:59 18:59 Intake Total 1960 3352 6540 Output Total 1700 1050 4545 Balance 260 2302 1995 Intake: IV 1650 1500 Sodium Chloride 0.45% 1, 750 000 ml @ 75 mls/hr IV . [id number] [facility] Rx#:[id number] ceFAZolin 1,000 mg In 50 Sodium Chloride 0.9% 50 ml @ 100 mls/hr IVPB Q24H [facility] Rx#:[id number] Intake, IV Titration 6000 Amount IV Fluid Continuation 900 6000 ml @ 0 mls/hr IV .[facility] Rx#:[id number] Oral 600 180 Blood Product 310 1252 310 Platelet Pheresis Pas 328 Psoralen Unit [id number] Platelet Pheresis Pas 286 Psoralen Unit [id number] Rc As-1 Unit 0 310 [id number] Rc As-1 Unit 310 [id number] Rc As-1 Unit 310 [id number] Other 50 Rc As-1 Unit 50 [id number] Output: Drainage 380 Right 380 Urine 1700 1000 4165 Suprapubic 1000 Estimated Blood Loss 50 Other: Voiding Method Indwelling Catheter Indwelling Catheter Indwelling Catheter - Constitutional General appearance: Present: average body habitus, mild distress - Gastrointestinal Gastrointestinal Comment(s): Soft, non-distended. Dressing intact with mild serosanguineous drainage noted. - Psychiatric Psychiatric: Present: A&O x's 3 - Labs CBC & Chem 7: 03/07/21 03:49 03/07/21 03:49 Labs: Abnormal Lab Results - Last 24 Hours (Table) 03/05/21 03/06/21 03/07/21 Range/Units 12:16 21:20 03:49 RBC 2.92 L 2.46 L (4.30-5.90) m/uL Hgb 9.1 L 7.3 L D (13.0-17.5) gm/dL Hct 25.7 L 20.7 L (39.0-53.0) % RDW 15.7 H (11.5-15.5) % Plt Count 49 L D 70 L (150-450) k/uL Metamyelocytes # (Man) 0.47 H 0.43 H (0) k/uL Nucleated RBCs 7 H 14 H (0-0) /100 WBC Sodium (137-145) mmol/L BUN (9-20) mg/dL Calcium (8.4-10.2) mg/dL Crossmatch See Detail 03/07/21 Range/Units 03:49 RBC (4.30-5.90) m/uL Hgb (13.0-17.5) gm/dL Hct (39.0-53.0) % RDW (11.5-15.5) % Plt Count (150-450) k/uL Metamyelocytes # (Man) (0) k/uL Nucleated RBCs (0-0) /100 WBC Sodium 131 L (137-145) mmol/L BUN 30 H (9-20) mg/dL Calcium 7.3 L (8.4-10.2) mg/dL Crossmatch Assessment and Plan (1) Hematuria Current Visit: No Status: Acute Code(s): R31.9 - HEMATURIA, UNSPECIFIED SNOMED Code(s): 63428334 Plan: Continue continuous bladder irrigation. Manually irrigate catheter when necessary. Monitor hemoglobin level. Oxybutynin chloride has been ordered to decrease the risk of bladder spasm.
[2021-03-07 13:32] LABS: HCT 23.6 % (39.0-53.0); MCH 31.8 pg (25.0-35.0); MCHC 37.1 g/dL (31.0-37.0); MCV 85.6 fL (80.0-100.0); Mean Platelet Volume 8.8; RBC 2.76 m/uL (4.30-5.90); RDW 14.7 % (11.5-15.5); WBC 8.8 k/uL (3.8-10.6)
[2021-03-07 13:35] LABS: HGB 8.8 gm/dL (13.0-17.5)
[2021-03-07 13:36] LABS: Platelet Count 52 k/uL (150-450)
[2021-03-07] MEDS: OXYBUTYNIN 10 MG TAB.ER.24 PO SCH (14:13)
[2021-03-07] MEDS: DOCUSATE 100 MG CAP PO SCH ×2 (14:13→20:08)
[2021-03-07] MEDS: SODIUM CHLORIDE 0.9% IRRIGATIO 3,000 ML IRRIGATION SCH (16:30)
[2021-03-08] MEDS: HYDROmorphone 1 MG/ML 1 ML SYRINGE IVP PRN ×4 (02:06→20:34)
[2021-03-08 04:17] LABS: African American GFR (CKD) >90 (>60 ml/min/1.73 sqM); Anion Gap 1 mmol/L; Blood Urea Nitrogen 15 mg/dL (9-20); Calcium 7.5 mg/dL (8.4-10.2); Carbon Dioxide 26 mmol/L (22-30); Chloride 103 mmol/L (98-107); Glucose 101 mg/dL (74-99); Non-African American GFR(CKD) >90 (>60 ml/min/1.73 sqM); Potassium 3.1 mmol/L (3.5-5.1); Sodium 130 mmol/L (137-145)
[2021-03-08 04:46] LABS: HCT 21.9 % (39.0-53.0); HGB 7.8 gm/dL (13.0-17.5); Hyperchromasia Slight; MCH 30.9 pg (25.0-35.0); MCHC 35.5 g/dL (31.0-37.0); Mean Platelet Volume 8.2; RBC 2.51 m/uL (4.30-5.90); RDW 15.2 % (11.5-15.5)
[2021-03-08 04:59] LABS: Platelet Count 38 k/uL (150-450)
[2021-03-08] MEDS: FERROUS SULFATE 325 MG TAB PO SCH ×2 (05:35→17:37)
[2021-03-08] MEDS: POTASSIUM CHLORIDE ER 20 MEQ TAB.ER PO SCH ×2 (05:35→06:44)
[2021-03-08 07:14] LABS: Band Neutrophils % 4 %; Eosinophils # (M) 0.07 k/uL (0-0.7); Lymphocytes # (M) 1.81 k/uL (1.0-4.8); Metamyelocytes # (M) 0.13 k/uL (0); Metamyelocytes % 2 %; Myelocytes # (M) 0.07 k/uL (0); Myelocytes % 1 %; Neutrophils % (M) 61 %; Nucleated Red Blood Cells 12 /100 WBC (0-0); Total Cells Counted 200; WBC 6.7 k/uL (3.8-10.6)
[2021-03-08] MEDS: SODIUM CHLORIDE 0.9% IRRIGATIO 3,000 ML IRRIGATION SCH ×2 (08:03→15:51)
[2021-03-08] MEDS: DOCUSATE 100 MG CAP PO SCH ×2 (08:03→20:34)
[2021-03-08] MEDS: TAMSULOSIN 0.4 MG CAP.ER.24H PO SCH (08:03)
[2021-03-08] MEDS: FAMOTIDINE 20 MG TAB PO SCH (08:03)
[2021-03-08] MEDS: OXYBUTYNIN 10 MG TAB.ER.24 PO SCH (08:03)
--- NOTE | 2021-03-08 09:34 | P.PN ---
Subjective Patient is seen in follow-up for acute kidney injury. Renal function back to baseline. Nonoliguric. No chest pain or shortness of breath. No active complaints. Oral intake fair. Vital signs are stable. General: Resting in bed. Awake. HEENT: Head exam is unremarkable. LUNGS: Breath sounds decreased. HEART: Rate and Rhythm are regular. ABDOMEN: Soft, no distention. EXTREMITITES: No edema. Objective - Vital Signs Vital signs: Vital Signs Temp 98.4 F 03/08/21 08:00 Pulse 98 03/08/21 09:00 Resp 16 03/08/21 09:00 BP 124/73 03/08/21 09:00 Pulse Ox 96 03/08/21 08:00 Intake & Output 03/07/21 03/08/21 03/08/21 18:59 06:59 18:59 Intake Total 9590 3120 3120 Output Total 9515 5425 1225 Balance 75 -2305 1895 Weight 57.5 kg Intake: IV 3120 3020 Bladder irrigation 3000 3000 normal saline 120 20 Intake, IV Titration 9050 Amount IV Fluid Continuation 900 9000 ml @ 0 mls/hr IV .[facility] Rx#:[id number] ceFAZolin 1,000 mg In 50 Sodium Chloride 0.9% 50 ml @ 100 mls/hr IVPB Q8H [facility] Rx#:[id number] Oral 180 100 Blood Product 310 Rc As-1 Unit 310 [id number] Other 50 Rc As-1 Unit 50 [id number] Output: Drainage 400 0 0 Right 400 0 0 Urine 9115 5425 1225 Other: Voiding Method Indwelling Catheter Indwelling Catheter Indwelling Catheter - Labs CBC & Chem 7: 03/08/21 03:16 03/08/21 03:16 Labs: Abnormal Lab Results - Last 24 Hours (Table) 03/07/21 03/08/21 03/08/21 Range/Units 13:12 03:16 03:16 RBC 2.76 L 2.51 L (4.30-5.90) m/uL Hgb 8.8 L D 7.8 L (13.0-17.5) gm/dL Hct 23.6 L 21.9 L (39.0-53.0) % MCHC 37.1 H (31.0-37.0) g/dL Plt Count 52 L 38 L (150-450) k/uL Metamyelocytes # (Man) 0.13 H (0) k/uL Myelocytes # (Manual) 0.07 H (0) k/uL Nucleated RBCs 12 H (0-0) /100 WBC Sodium 130 L (137-145) mmol/L Potassium 3.1 L (3.5-5.1) mmol/L Glucose 101 H (74-99) mg/dL Calcium 7.5 L (8.4-10.2) mg/dL Assessment and Plan Plan: Assessment: 1. Acute kidney injury secondary to obstructive uropathy. Resolved. Creatinine 0.68 today. 2. 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 Urology following. Underwent repair of bladder rupture and evacuation of clot on March 06. 3. Metabolic acidosis secondary to acute kidney injury. Resolved. 4. Hyponatremia from poor solute intake. 5. Acute blood loss anemia status post blood transfusion this admission. Hemoglobin 7.8 this morning. No active bleeding. 6. Hypokalemia from poor intake. Plan: Encouraged oral intake. Off IV fluids. Avoid nephrotoxins. Potassium replaced. Check magnesium level and replace per protocol.
[2021-03-08] MEDS ORDERED: Magnesium Replacement Protocol 1 EACH MISC MISCELLANE PRN (10:54)
[2021-03-08] MEDS: MAGNESIUM SULFATE-D5W PMX 1 GM in DEXTROSE/WATER 1 100ML.BAG IVPB SCH ×3 (11:12→13:25)
--- NOTE | 2021-03-08 12:31 | P.PN ---
Subjective Progress Note Date: 03/08/21 55-year-old male who was seen by urology recently for gross hematuria. Today, the patient underwent a TURBT, TURP, clot evacuation, and cystogram. The patient had a bladder tumor which apparently was invading the prostate. I was called by the urologist after the procedure to asked whether or not the patient could be watched more closely in the intensive care unit. The patient was found to have a sodium of 123, in addition, the patient's BUN was 155 with a creatinine of 10.32. For these reasons, the patient was placed in the intensive care unit. The patient's on room air. The patient's getting saline at 130 mL an hour. He'll be seen by nephrology. 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 Laboratory data includes a sodium 127, potassium 4, chlorides 92, CO2 20, anion gap 15, down from 25, and a BUN and creatinine was at 124 and 6.76. Calcium is 7.7. The patient is seen today 03/05/2021 in follow-up in the intensive care unit. He is currently sitting up in bed. Awake and alert in no acute distress. Postoperative day #1. He is maintaining good O2 saturations in the 90s on room air. He has 0.45 normal saline at 125 ML's per hour. His sodium is 131. Potassium 3.8. BUN 55. Creatinine down to 1.3. Glucose 183. AST 107. ALT 16. Alk phos 363. Pathology pending. The patient is seen today 03/06/2021 in follow-up in the intensive care unit. He is a surgical surgical overflow. He is sitting up in bed. Awake and alert in no acute distress. He is maintaining O2 saturations in the 90s on room air. He has 0.45 normal saline at 125 mL per hour. His hemoglobin was 7.7 and he was transfused 1 unit of packed red blood cells. Current hemoglobin 8.1. White count 10.3. Pathology still pending. Patient seen today 03/07/2021 in follow-up in the intensive care unit. He did end up going back for an exploratory laparotomy yesterday with a perforated bladder and repair. There is evacuation of clots. The super tube catheter was placed and he is receiving continuous irrigations now. This is postoperative day #1. He remains awake and alert. On room air oxygen without any desaturations. No IV fluids currently. He is status post 5 units of packed red blood cells and 2 units of platelets so far this admission. White count 6.1. Hemoglobin 7.3. Platelets 70,000. Sodium 131. Potassium 3.9. Creatinine 0.9. He remains on cefazolin. The patient is seen today 03/08/2021 in follow-up in the intensive care unit. He is currently resting fairly comfortable in bed. Awake and alert in no acute distress. He is maintaining O2 saturations in the 90s on room air. 0.9 normal saline at 10 mL per hour. He has received 5 units of packed red blood cells and 2 packs of platelets this admission. His urine is a bit less bloody today compared to yesterday. Continues bladder irrigation continues her urology. White count 6.7. Hemoglobin 7.8. Platelet count 38,000. Sodium 130. Potass ium 3.1. Creatinine 0.68. He remains on antibiotics in the form of cefazolin. Objective - Vital Signs Vital signs: Vital Signs Temp 98.4 F 03/08/21 08:00 Pulse 91 03/08/21 11:00 Resp 16 03/08/21 11:00 BP 135/70 03/08/21 11:00 Pulse Ox 96 03/08/21 08:00 Intake & Output 03/07/21 03/08/21 03/08/21 18:59 06:59 18:59 Intake Total 9590 3120 3470 Output Total 9515 5425 2450 Balance 75 -2305 1020 Weight 57.5 kg Intake: IV 3120 3050 Bladder irrigation 3000 3000 normal saline 120 50 Intake, IV Titration 9050 200 Amount IV Fluid Continuation 900 9000 ml @ 0 mls/hr IV .[facility] Rx#:[id number] Magnesium Sulfate-D5w Pmx 200 1 gm In Dextrose/Water 1 100ml.bag @ 100 mls/hr IVPB Q1H [facility] Rx#: [id number] ceFAZolin 1,000 mg In 50 Sodium Chloride 0.9% 50 ml @ 100 mls/hr IVPB Q8H [facility] Rx#:[id number] Oral 180 220 Blood Product 310 Rc As-1 Unit 310 [id number] Other 50 Rc As-1 Unit 50 [id number] Output: Drainage 400 0 0 Right 400 0 0 Urine 9163 3557 0688 Other: Voiding Method Indwelling Catheter Indwelling Catheter Indwelling Catheter - Exam GENERAL EXAM: Alert, 55-year-old male patient, on room air, comfortable in no apparent distress. HEAD: Normocephalic. EYES: Normal reaction of pupils, equal size. NOSE: Clear with pink turbinates. THROAT: No erythema or exudates. NECK: No masses, no JVD. CHEST: No chest wall deformity. LUNGS: Equal air entry with no crackles, wheeze, rhonchi or dullness. CVS: S1 and S2 normal with no audible murmur, regular rhythm. ABDOMEN: Suprapubic catheter in place with irrigation. No hepatosplenomegaly, normal bowel sounds, no guarding or rigidity. SPINE: No scoliosis or deformity SKIN: No rashes CENTRAL NERVOUS SYSTEM: No focal deficits, tone is normal in all 4 extremities. EXTREMITIES: There is no peripheral edema. No clubbing, no cyanosis. Peripheral pulses are intact. - Labs CBC & Chem 7: 03/08/21 03:16 03/08/21 03:16 Labs: Abnormal Lab Results - Last 24 Hours (Table) 03/07/21 03/08/21 03/08/21 Range/Units 13:12 03:16 03:16 RBC 2.76 L 2.51 L (4.30-5.90) m/uL Hgb 8.8 L D 7.8 L (13.0-17.5) gm/dL Hct 23.6 L 21.9 L (39.0-53.0) % MCHC 37.1 H (31.0-37.0) g/dL Plt Count 52 L 38 L (150-450) k/uL Metamyelocytes # (Man) 0.13 H (0) k/uL Myelocytes # (Manual) 0.07 H (0) k/uL Nucleated RBCs 12 H (0-0) /100 WBC Sodium 130 L (137-145) mmol/L Potassium 3.1 L (3.5-5.1) mmol/L Glucose 101 H (74-99) mg/dL Calcium 7.5 L (8.4-10.2) mg/dL Magnesium (1.6-2.3) mg/dL 03/08/21 Range/Units 03:16 RBC (4.30-5.90) m/uL Hgb (13.0-17.5) gm/dL Hct (39.0-53.0) % MCHC (31.0-37.0) g/dL Plt Count (150-450) k/uL Metamyelocytes # (Man) (0) k/uL Myelocytes # (Manual) (0) k/uL Nucleated RBCs (0-0) /100 WBC Sodium (137-145) mmol/L Potassium (3.5-5.1) mmol/L Glucose (74-99) mg/dL Calcium (8.4-10.2) mg/dL Magnesium 1.3 L (1.6-2.3) mg/dL Assessment and Plan Assessment: 1 Postop day #4, status post TURBT, TURP, cystogram, and clot evacuation, secondary to a bladder tumor. Pathology pending. On 03/06/2021 he was returned to the OR and had undergone cystoscopy with evacuation of clot, exploratory laparotomy with repair of bladder rupture. He has a suprapubic catheter in place with continuous irrigation. Post operative day #2. 2 Anemia secondary to above and is status post 5 units of packed red blood cells this admission. 2 units of platelets. 3 Hyponatremia. Improving current sodium 130 4 New onset acute kidney injury/renal failure. Recovered currently 0.68 creatinine 5 History of BPH. 6 History of osteoarthritis. 7 History of ongoing tobacco use with nicotine addiction. Plan: The patient was seen and evaluated by Dr. Jalloh Currently stable from the pulmonary and critical care standpoint Suprapubic catheter in place with continuous irrigation Urine less bloody today Pathology pending We will continue to follow I, the cosigning physician, performed a history & physical examination of the patient. Lungs sounds are clear. Maintaining good O2 saturations in the 90s on room air. I discussed the assessment and plan of care with my nurse practitioner, Silke Frederick. I attest to the above note as dictated by her.
--- NOTE | 2021-03-08 14:00 | P.PN ---
Subjective Progress Note Date: 03/08/21 Principal diagnosis: Bladder tumor, hematuria, blood loss anemia The patient underwent TURPTURBT on 03/04/2021. He required transfusion on 03/05/2021. He was returned to the operating room 03/06/2021 for urinary clot retention, and was found to have a bladder perforation, for which he underwent open repair. Yesterday, he was noted to have increased MARYCARMEN drain output and satu ration of his incisional dressing. The Jurado catheter was irrigated, and several hundred mL of urine was drained from the bladder. Continuous irrigation was switched such that the fluid entered the bladder via the suprapubic tube and drained out of the Jurado catheter. He developed increased hematuria following that switch, but the catheter drained well and MARYCARMEN output immediately decreased. The Jurado catheter remains on traction. He feels better today. His urine has cleared considerably, and MARYCARMEN output is virtually nothing. Objective - Vital Signs Vital signs: Vital Signs Temp 98.4 F 03/08/21 08:00 Pulse 92 03/08/21 13:00 Resp 16 03/08/21 13:00 BP 126/71 03/08/21 13:00 Pulse Ox 96 03/08/21 08:00 Intake & Output 03/07/21 03/08/21 03/08/21 18:59 06:59 18:59 Intake Total 9590 3120 3600 Output Total 9515 5425 3550 Balance 75 -2305 50 Weight 57.5 kg Intake: IV 3120 3060 Bladder irrigation 3000 3000 normal saline 120 60 Intake, IV Titration 9050 200 Amount IV Fluid Continuation 900 9000 ml @ 0 mls/hr IV .[facility] Rx#:[id number] Magnesium Sulfate-D5w Pmx 200 1 gm In Dextrose/Water 1 100ml.bag @ 100 mls/hr IVPB Q1H [facility] Rx#: [id number] ceFAZolin 1,000 mg In 50 Sodium Chloride 0.9% 50 ml @ 100 mls/hr IVPB Q8H [facility] Rx#:[id number] Oral 180 340 Blood Product 310 Rc As-1 Unit 310 [id number] Other 50 Rc As-1 Unit 50 [id number] Output: Drainage 400 0 0 Right 400 0 0 Urine 9115 5425 3550 Other: Voiding Method Indwelling Catheter Indwelling Catheter Indwelling Catheter - Constitutional General appearance: Present: average body habitus, cooperative, no acute distress - Gastrointestinal Gastrointestinal Comment(s): Soft, non-distended. Incision clean, dry, and intact. - Psychiatric Psychiatric: Present: A&O x's 3 - Labs CBC & Chem 7: 03/08/21 03:16 03/08/21 03:16 Labs: Abnormal Lab Results - Last 24 Hours (Table) 03/08/21 03/08/21 03/08/21 Range/Units 03:16 03:16 03:16 RBC 2.51 L (4.30-5.90) m/uL Hgb 7.8 L (13.0-17.5) gm/dL Hct 21.9 L (39.0-53.0) % Plt Count 38 L (150-450) k/uL Metamyelocytes # (Man) 0.13 H (0) k/uL Myelocytes # (Manual) 0.07 H (0) k/uL Nucleated RBCs 12 H (0-0) /100 WBC Sodium 130 L (137-145) mmol/L Potassium 3.1 L (3.5-5.1) mmol/L Glucose 101 H (74-99) mg/dL Calcium 7.5 L (8.4-10.2) mg/dL Magnesium 1.3 L (1.6-2.3) mg/dL Assessment and Plan (1) Hematuria Current Visit: No Status: Acute Code(s): R31.9 - HEMATURIA, UNSPECIFIED SNOMED Code(s): 10494114 Plan: Continue continuous bladder irrigation. Manually irrigate catheter when necessary. Monitor hemoglobin level. Transfuse one unit packed RBCs. Increase activity.
--- NOTE | 2021-03-08 23:24 | P.PN ---
Subjective This is a pleasant 55 years old male with past medical history of osteoarthritis and prostate hypertrophy. 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 After the procedure patient brought to the ICU for hyponatremia sodium 121-123 since admission, creatinine was elevated 11-10 since admission. Currently his creatinine this morning is normal at 0.89 and sodium improved up to 131. He was treated with normal saline hydration, also Jurado catheter is in place with catheter irrigation Also postprocedure his hemoglobin dropped to 5.2 on 03/05, he transfused 2 units of blood and his hemoglobin improved to 8.0 Today patient lying in bed looks lethargic but is awake. He is in distress due to pain at the Jurado site. Dressing is in place. He is undergoing bladder irrigation. Also he is getting blood transfusion this morning He denies chest pain or dyspnea. No headache or weakness Vitas looks stable and patient is afebrile. Labs reviewed, he had mild leukocytosis on admission 11.3, currently 6.1, hemoglobin dropped from 8.0 down to 7.3 today, initially was 5.2 and received 2 units of blood. Also patient with thrombocytopenia platelets improved today to 70 K. Sodium 131. Creatinine normal 0.8. Coronavirus nondetected. 03/08/2021 Patient was started yesterday today is more awake and alert however is still tired and is resting in bed, patient is asking if he can be moved to the chair later on during the day. Patient is eating only limited amount of fluid. Hemodynamically stable. Labs reviewed his hemoglobin dropped 7.8. Platelets are low 38. Sodium is 1:30, low potassium 3.1 and magnesium 1.3 are being replaced per protocol. Patient still has expected surgical site abdominal wane. Suprapubic urinary catheter is in a Place as well as MARYCARMEN drain. Patient is receiving 1 unit of blood according to neurology team He is still on cefazolin. He is getting bladder irrigation Objective - Vital Signs Vital signs: Vital Signs Temp 98.4 F 03/08/21 08:00 Pulse 80 03/08/21 12:00 Resp 16 03/08/21 12:00 BP 119/73 03/08/21 12:00 Pulse Ox 96 03/08/21 08:00 Intake & Output 03/07/21 03/08/21 03/08/21 18:59 06:59 18:59 Intake Total 9590 3120 3470 Output Total 9585 5425 2450 Balance 75 -2305 1020 Weight 57.5 kg Intake: IV 3120 3050 Bladder irrigation 3000 3000 normal saline 120 50 Intake, IV Titration 9050 200 Amount IV Fluid Continuation 900 9000 ml @ 0 mls/hr IV .[facility] Rx#:[id number] Magnesium Sulfate-D5w Pmx 200 1 gm In Dextrose/Water 1 100ml.bag @ 100 mls/hr IVPB Q1H [facility] Rx#: [id number] ceFAZolin 1,000 mg In 50 Sodium Chloride 0.9% 50 ml @ 100 mls/hr IVPB Q8H [facility] Rx#:[id number] Oral 180 220 Blood Product 310 Rc As-1 Unit 310 [id number] Other 50 Rc As-1 Unit 50 [id number] Output: Drainage 400 0 0 Right 400 0 0 Urine 9115 5425 2450 Other: Voiding Method Indwelling Catheter Indwelling Catheter Indwelling Catheter - Exam GENERAL: The patient is alert and oriented x3, not in any acute distress. Well developed, well nourished. HEENT: Pupils are round and equally reacting to light. EOMI. No scleral icterus. No conjunctival pallor. Normocephalic, atraumatic. No pharyngeal erythema. No thyromegaly. CARDIOVASCULAR: S1 and S2 present. No murmurs, rubs, or gallops. PULMONARY: Chest is clear to auscultation, no wheezing or crackles. ABDOMEN: Soft, nontender, nondistended, normoactive bowel sounds. No palpable organomegaly. MUSCULOSKELETAL: No joint swelling or deformity. EXTREMITIES: No cyanosis, clubbing, or pedal edema. NEUROLOGICAL: Gross neurological examination did not reveal any focal deficits. SKIN: No rashes. No petechiae - Labs CBC & Chem 7: 03/08/21 03:16 03/08/21 03:16 Labs: Abnormal Lab Results - Last 24 Hours (Table) 03/07/21 03/08/21 03/08/21 Range/Units 13:12 03:16 03:16 RBC 2.76 L 2.51 L (4.30-5.90) m/uL Hgb 8.8 L D 7.8 L (13.0-17.5) gm/dL Hct 23.6 L 21.9 L (39.0-53.0) % MCHC 37.1 H (31.0-37.0) g/dL Plt Count 52 L 38 L (150-450) k/uL Metamyelocytes # (Man) 0.13 H (0) k/uL Myelocytes # (Manual) 0.07 H (0) k/uL Nucleated RBCs 12 H (0-0) /100 WBC Sodium 130 L (137-145) mmol/L Potassium 3.1 L (3.5-5.1) mmol/L Glucose 101 H (74-99) mg/dL Calcium 7.5 L (8.4-10.2) mg/dL Magnesium (1.6-2.3) mg/dL 03/08/21 Range/Units 03:16 RBC (4.30-5.90) m/uL Hgb (13.0-17.5) gm/dL Hct (39.0-53.0) % MCHC (31.0-37.0) g/dL Plt Count (150-450) k/uL Metamyelocytes # (Man) (0) k/uL Myelocytes # (Manual) (0) k/uL Nucleated RBCs (0-0) /100 WBC Sodium (137-145) mmol/L Potassium (3.5-5.1) mmol/L Glucose (74-99) mg/dL Calcium (8.4-10.2) mg/dL Magnesium 1.3 L (1.6-2.3) mg/dL Assessment and Plan Assessment: 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 Continue with Jurado catheter and bladder irrigation. With urology Noel team on the case follow-up pathology report Continue with antibiotic and Pain management as per primary team Add iron pills pulmonary/critical care team consult , nephrology consult patient is on Flomax Labs and medication were reviewed.. Continue same treatment. Continue with symptomatic treatment. Resume home medication. Monitor lytes and vitals. DVT and GI prophylaxis. Further recommendations depends on the clinical course of the patient DVT prophylaxis: no heparin for hematuria and severe anemia GI Prophylaxis: Ofelia Thank you For consulting us, we'll follow up with you
[2021-03-09] MEDS: HYDROmorphone 1 MG/ML 1 ML SYRINGE IVP PRN ×4 (02:08→21:05)
[2021-03-09 04:21] LABS: HCT 25.4 % (39.0-53.0); HGB 9.1 gm/dL (13.0-17.5); Hyperchromasia Slight; MCH 31.6 pg (25.0-35.0); MCHC 35.8 g/dL (31.0-37.0); MCV 88.3 fL (80.0-100.0); Mean Platelet Volume 8.6; RBC 2.87 m/uL (4.30-5.90)
[2021-03-09 04:22] LABS: African American GFR (CKD) >90 (>60 ml/min/1.73 sqM); Anion Gap 3 mmol/L; Blood Urea Nitrogen 11 mg/dL (9-20); Calcium 7.6 mg/dL (8.4-10.2); Carbon Dioxide 27 mmol/L (22-30); Chloride 100 mmol/L (98-107); Glucose 105 mg/dL (74-99); Magnesium 1.5 mg/dL (1.6-2.3); Non-African American GFR(CKD) >90 (>60 ml/min/1.73 sqM); Potassium 3.2 mmol/L (3.5-5.1); Sodium 130 mmol/L (137-145)
[2021-03-09 04:24] LABS: Platelet Count 34 k/uL (150-450)
[2021-03-09 05:04] LABS: Band Neutrophils % 23 %; Neutrophils % (M) 51 %; Nucleated Red Blood Cells 10 /100 WBC (0-0); Total Cells Counted 200
[2021-03-09 05:05] LABS: Lymphocytes # (M) 0.97 k/uL (1.0-4.8); Monocytes # (M) 0.43 k/uL (0-1.0); WBC 5.4 k/uL (3.8-10.6)
[2021-03-09] MEDS: FERROUS SULFATE 325 MG TAB PO SCH ×2 (05:11→05:12)
[2021-03-09] MEDS: MAGNESIUM SULFATE-D5W PMX 1 GM in DEXTROSE/WATER 1 100ML.BAG IVPB SCH ×2 (05:11→09:39)
[2021-03-09] MEDS: POTASSIUM CHLORIDE ER 20 MEQ TAB.ER PO SCH ×2 (05:12→06:17)
[2021-03-09] MEDS: PANTOPRAZOLE 40 MG TABLET PO SCH (05:12)
--- NOTE | 2021-03-09 09:34 | P.PN ---
Subjective Progress Note Date: 03/09/21 55-year-old male who was seen by urology recently for gross hematuria. Today, the patient underwent a TURBT, TURP, clot evacuation, and cystogram. The patient had a bladder tumor which apparently was invading the prostate. I was called by the urologist after the procedure to asked whether or not the patient could be watched more closely in the intensive care unit. The patient was found to have a sodium of 123, in addition, the patient's BUN was 155 with a creatinine of 10.32. For these reasons, the patient was placed in the intensive care unit. The patient's on room air. The patient's getting saline at 130 mL an hour. He'll be seen by nephrology. 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 Laboratory data includes a sodium 127, potassium 4, chlorides 92, CO2 20, anion gap 15, down from 25, and a BUN and creatinine was at 124 and 6.76. Calcium is 7.7. The patient is seen today 03/05/2021 in follow-up in the intensive care unit. He is currently sitting up in bed. Awake and alert in no acute distress. Postoperative day #1. He is maintaining good O2 saturations in the 90s on room air. He has 0.45 normal saline at 125 ML's per hour. His sodium is 131. Potassium 3.8. BUN 55. Creatinine down to 1.3. Glucose 183. AST 107. ALT 16. Alk phos 363. Pathology pending. The patient is seen today 03/06/2021 in follow-up in the intensive care unit. He is a surgical surgical overflow. He is sitting up in bed. Awake and alert in no acute distress. He is maintaining O2 saturations in the 90s on room air. He has 0.45 normal saline at 125 mL per hour. His hemoglobin was 7.7 and he was transfused 1 unit of packed red blood cells. Current hemoglobin 8.1. White count 10.3. Pathology still pending. Patient seen today 03/07/2021 in follow-up in the intensive care unit. He did end up going back for an exploratory laparotomy yesterday with a perforated bladder and repair. There is evacuation of clots. The super tube catheter was placed and he is receiving continuous irrigations now. This is postoperative day #1. He remains awake and alert. On room air oxygen without any desaturations. No IV fluids currently. He is status post 5 units of packed red blood cells and 2 units of platelets so far this admission. White count 6.1. Hemoglobin 7.3. Platelets 70,000. Sodium 131. Potassium 3.9. Creatinine 0.9. He remains on cefazolin. The patient is seen today 03/08/2021 in follow-up in the intensive care unit. He is currently resting fairly comfortable in bed. Awake and alert in no acute distress. He is maintaining O2 saturations in the 90s on room air. 0.9 normal saline at 10 mL per hour. He has received 5 units of packed red blood cells and 2 packs of platelets this admission. His urine is a bit less bloody today compared to yesterday. Continues bladder irrigation continues her urology. White count 6.7. Hemoglobin 7.8. Platelet count 38,000. Sodium 130. Potas sium 3.1. Creatinine 0.68. He remains on antibiotics in the form of cefazolin. 03/09/2021, the patient is being seen in follow-up in the intensive care unit. The patient is post TURP, TURB on 03/04/2021, complicated by bladder perforation and the patient returned back to the operating room on 03/06/2021 for urinary clot retention, open repair of a bladder perforation. The patient has a suprap ubic catheter and a Jurado catheter in place. He is receiving continuous irrigation through this recovery catheter and drained with a Jurado catheter. He also has a MARYCARMEN drain at the incision site. Some catheter irrigation was done by urology and the Jurado catheter is draining well at this point in time. His urine is clearing of the MARYCARMEN output is minimal at this point in time. Hemoglobin is also remains stable. He is using incentive spirometer. He is afebrile. He remains on IV cefazolin. The irrigation is constant through the suprapubic catheter. He has recovered from his acute kidney injury. Sodium level is also stable. Potassium level is being replaced. The patient remains on room air oxygen for now. Patient is going through approximately 4.5 L of saline drainage through his suprapubic catheter in an 8 hours to 12 hour period. The sodium level today is at 130. The rest of the electrodes are normal. Renal function is normal. Cultures have not been done. The patient had staph epidermidis on the initial cultures on the urine. The hemoglobin today is at 9.1. Objective - Vital Signs Vital signs: Vital Signs Temp 98.2 F 03/09/21 04:00 Pulse 89 03/09/21 06:00 Resp 12 03/09/21 06:00 BP 128/79 03/09/21 06:00 Pulse Ox 96 03/09/21 06:00 Intake & Output 03/08/21 03/09/21 03/09/21 18:59 06:59 18:59 Intake Total 7410 3660 Output Total 5875 5100 Balance 1535 -1440 Weight 58.7 kg Intake: IV 6120 3120 Bladder irrigation 6000 3000 normal saline 120 120 Intake, IV Titration 350 Amount Magnesium Sulfate-D5w Pmx 300 1 gm In Dextrose/Water 1 100ml.bag @ 100 mls/hr IVPB Q1H [facility] Rx#: [id number] ceFAZolin 1,000 mg In 50 Sodium Chloride 0.9% 50 ml @ 100 mls/hr IVPB Q8H [facility] Rx#:[id number] Oral 580 540 Blood Product 310 Rc As-1 Unit 310 [id number] Other 50 Rc As-1 Unit 50 [id number] Output: Drainage 0 0 Right 0 0 Urine 5875 5100 Other: Voiding Method Indwelling Catheter Indwelling Catheter - Exam GENERAL EXAM: Alert, 55-year-old male patient, on room air, comfortable in no apparent distress. HEAD: Normocephalic. EYES: Normal reaction of pupils, equal size. NOSE: Clear with pink turbinates. THROAT: No erythema or exudates. NECK: No masses, no JVD. CHEST: No chest wall deformity. LUNGS: Equal air entry with no crackles, wheeze, rhonchi or dullness. CVS: S1 and S2 normal with no audible murmur, regular rhythm. ABDOMEN: Suprapubic catheter in place with irrigation. No hepatosplenomegaly, normal bowel sounds, no guarding or rigidity. SPINE: No scoliosis or deformity SKIN: No rashes CENTRAL NERVOUS SYSTEM: No focal deficits, tone is normal in all 4 extremities. EXTREMITIES: There is no peripheral edema. No clubbing, no cyanosis. Peripheral pulses are intact. - Labs CBC & Chem 7: 03/09/21 03:01 03/09/21 03:01 Labs: Abnormal Lab Results - Last 24 Hours (Table) 03/05/21 03/08/21 03/09/21 Range/Units 12:16 03:16 03:01 RBC (4.30-5.90) m/uL Hgb (13.0-17.5) gm/dL Hct (39.0-53.0) % Plt Count (150-450) k/uL Lymphocytes # (Manual) (1.0-4.8) k/uL Nucleated RBCs (0-0) /100 WBC Sodium 130 L (137-145) mmol/L Potassium 3.2 L (3.5-5.1) mmol/L Creatinine 0.61 L (0.66-1.25) mg/dL Glucose 105 H (74-99) mg/dL Calcium 7.6 L (8.4-10.2) mg/dL Magnesium 1.3 L 1.5 L (1.6-2.3) mg/dL Crossmatch See Detail 03/09/21 Range/Units 03:01 RBC 2.87 L (4.30-5.90) m/uL Hgb 9.1 L (13.0-17.5) gm/dL Hct 25.4 L (39.0-53.0) % Plt Count 34 L (150-450) k/uL Lymphocytes # (Manual) 0.97 L (1.0-4.8) k/uL Nucleated RBCs 10 H (0-0) /100 WBC Sodium (137-145) mmol/L Potassium (3.5-5.1) mmol/L Creatinine (0.66-1.25) mg/dL Glucose (74-99) mg/dL Calcium (8.4-10.2) mg/dL Magnesium (1.6-2.3) mg/dL Crossmatch Assessment and Plan Plan: 1 Postop day #5, status post TURBT, TURP, cystogram, and clot evacuation, secondary to a bladder tumor. Pathology pending. On 03/06/2021 he was returned to the OR and had undergone cystoscopy with evacuation of clot, exploratory laparotomy with repair of bladder rupture. He has a suprapubic catheter in place with continuous irrigation. Post operative day #3. 2 Anemia secondary to above and is status post 5 units of packed red blood cells this admission. 2 units of platelets. 3 Hyponatremia. Improving current sodium 130 4 Acute kidney injury/renal failure , recovered 5 History of BPH. 6 History of osteoarthritis. 7 History of ongoing tobacco use with nicotine addiction. Plan: Currently stable from the pulmonary and critical care standpoint Hemodynamically stable and the patient is currently on room air oxygen The electrolytes are being monitored including sodium and potassium levels Suprapubic catheter in place with continuous irrigation Urine less bloody today, and continues to clear Pathology pending We will continue to follow , transfer to regular medical surgical floor.
[2021-03-09] MEDS: DOCUSATE 100 MG CAP PO SCH ×2 (09:39→21:06)
[2021-03-09] MEDS: TAMSULOSIN 0.4 MG CAP.ER.24H PO SCH (09:39)
[2021-03-09] MEDS: OXYBUTYNIN 10 MG TAB.ER.24 PO SCH (09:42)
--- NOTE | 2021-03-09 12:15 | PN ---
PROGRESS NOTE Patient is seen for followup for acute kidney injury. Renal function has improved with creatinine down to 0.6 now from 12.1 on initial admission, mostly obstructive uropathy. The patient is currently with an indwelling Jurado catheter. He underwent TURP on 03/04/2021. PHYSICAL EXAMINATION: On examination today, blood pressure 128/79, heart rate 89 per minute, he is afebrile. Examination of the heart S1, S2. Examination of the lungs, decreased breath sounds at the bases. Abdomen is soft, nontender. Examination of lower extremities shows no evidence of edema. LAB: Show sodium 130, potassium 3.2, BUN 11, serum creatinine 0.6. ASSESSMENT: 1. Acute kidney injury obstructive uropathy currently resolved status post TURP. 2. Papillary carcinoma of the bladder. 3. Status post cystoscopy with TURP procedure. The patient had repair of bladder rupture and evacuation of clot on March 06. 4. Metabolic acidosis associated with acute kidney injury now resolved. 5. Acute blood loss anemia status post packed RBCs transfusion. No active bleeding noted currently. 6. Hyponatremia associated with poor solute intake, currently stable. PLAN: Encourage increased oral protein intake. Continue off IV fluids. Repeat labs in a.m. Avoid nephrotoxic medications. MMODL / IJN: [id number] /
[2021-03-09 13:41] VITALS: BMI 19.6
--- NOTE | 2021-03-09 16:54 | P.PN ---
Progress Note - Text Progress Note Date: 03/09/21 No acute overnight event, abdomen is soft, urine is blood tinged on slow rate CBI Exam Abdomen: Soft non tender, MARYCARMEN minimal output serous Jurado blood tinged on slow rate CBI A/P 55 yo S/P TURPTURBT on 03/04/2021. He required transfusion on 03/05/2021. He was returned to the operating room 03/06/2021 for urinary clot retention, and was found to have a bladder perforation, for which he underwent open repair. -Will slow down rate of CBI -Keep MARYCARMEN in place
[2021-03-10] MEDS: HYDROmorphone 1 MG/ML 1 ML SYRINGE IVP PRN ×5 (01:44→21:17)
[2021-03-10] MEDS: SODIUM CHLORIDE 0.9% IRRIGATIO 3,000 ML IRRIGATION SCH (07:38)
[2021-03-10] MEDS: DOCUSATE 100 MG CAP PO SCH ×3 (08:15→21:18)
[2021-03-10] MEDS: OXYBUTYNIN 10 MG TAB.ER.24 PO SCH ×2 (08:15→09:12)
[2021-03-10] MEDS: FERROUS SULFATE 325 MG TAB PO SCH ×3 (08:15→16:52)
[2021-03-10] MEDS: PANTOPRAZOLE 40 MG TABLET PO SCH ×2 (08:15→09:13)
[2021-03-10] MEDS: TAMSULOSIN 0.4 MG CAP.ER.24H PO SCH ×2 (08:15→09:12)
[2021-03-10] MEDS ORDERED: Potassium Replacement Protocol 1 EACH MISC MISCELLANE PRN (09:50)
[2021-03-10 10:29] LABS: HCT 24.5 % (39.0-53.0); HGB 8.8 gm/dL (13.0-17.5); Hyperchromasia Slight; MCH 31.9 pg (25.0-35.0); MCV 88.8 fL (80.0-100.0); Mean Platelet Volume 8.7; RBC 2.76 m/uL (4.30-5.90)
[2021-03-10 10:33] LABS: African American GFR (CKD) >90 (>60 ml/min/1.73 sqM); Anion Gap 3 mmol/L; Blood Urea Nitrogen 9 mg/dL (9-20); Calcium 7.4 mg/dL (8.4-10.2); Carbon Dioxide 30 mmol/L (22-30); Chloride 96 mmol/L (98-107); Glucose 118 mg/dL (74-99); Non-African American GFR(CKD) >90 (>60 ml/min/1.73 sqM); Potassium 2.9 mmol/L (3.5-5.1); Sodium 129 mmol/L (137-145)
[2021-03-10 10:36] LABS: Platelet Count 24 k/uL (150-450)
--- NOTE | 2021-03-10 11:53 | P.PN ---
Progress Note - Text Progress Note Date: 03/10/21 No acute overnight event, abdomen is soft, urine is CLEAR on slow rate CBI Exam Abdomen: Soft non tender, MARYCARMEN minimal output serous Foleyclear urine on slow rate CBI A/P 55 yo S/P TURPTURBT on 03/04/2021. He required transfusion on 03/05/2021. He was returned to the operating room 03/06/2021 for urinary clot retention, and was found to have a bladder perforation, for which he underwent open repair. -CBI was turned off -Keep MARYCARMEN in place -BMP -If urine remain clear tomorrow will discharge home tomorrow
[2021-03-10 13:02] LABS: Band Neutrophils % 3 %; Metamyelocytes % 2 %; Myelocytes # (M) 0.05 k/uL (0); Myelocytes % 1 %; Neutrophils % (M) 57 %; Nucleated Red Blood Cells 4 /100 WBC (0-0); Total Cells Counted 200
[2021-03-10 13:03] LABS: Anisocytosis (M) Present; Lymphocytes # (M) 1.43 k/uL (1.0-4.8); Metamyelocytes # (M) 0.09 k/uL (0); Monocytes # (M) 0.32 k/uL (0-1.0); Polychromasia Present; WBC 4.6 k/uL (3.8-10.6)
[2021-03-10] MEDS: POTASSIUM CHLORIDE ER 20 MEQ TAB.ER PO SCH ×4 (16:52→23:23)
--- NOTE | 2021-03-10 17:29 | P.PN ---
Subjective Progress Note Date: 03/10/21 55-year-old male who was seen by urology recently for gross hematuria. Today, the patient underwent a TURBT, TURP, clot evacuation, and cystogram. The patient had a bladder tumor which apparently was invading the prostate. I was called by the urologist after the procedure to asked whether or not the patient could be watched more closely in the intensive care unit. The patient was found to have a sodium of 123, in addition, the patient's BUN was 155 with a creatinine of 10.32. For these reasons, the patient was placed in the intensive care unit. The patient's on room air. The patient's getting saline at 130 mL an hour. He'll be seen by nephrology. 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 Laboratory data includes a sodium 127, potassium 4, chlorides 92, CO2 20, anion gap 15, down from 25, and a BUN and creatinine was at 124 and 6.76. Calcium is 7.7. The patient is seen today 03/05/2021 in follow-up in the intensive care unit. He is currently sitting up in bed. Awake and alert in no acute distress. Postoperative day #1. He is maintaining good O2 saturations in the 90s on room air. He has 0.45 normal saline at 125 ML's per hour. His sodium is 131. Potassium 3.8. BUN 55. Creatinine down to 1.3. Glucose 183. AST 107. ALT 16. Alk phos 363. Pathology pending. The patient is seen today 03/06/2021 in follow-up in the intensive care unit. He is a surgical surgical overflow. He is sitting up in bed. Awake and alert in no acute distress. He is maintaining O2 saturations in the 90s on room air. He has 0.45 normal saline at 125 mL per hour. His hemoglobin was 7.7 and he was transfused 1 unit of packed red blood cells. Current hemoglobin 8.1. White count 10.3. Pathology still pending. Patient seen today 03/07/2021 in follow-up in the intensive care unit. He did end up going back for an exploratory laparotomy yesterday with a perforated bladder and repair. There is evacuation of clots. The super tube catheter was placed and he is receiving continuous irrigations now. This is postoperative day #1. He remains awake and alert. On room air oxygen without any desaturations. No IV fluids currently. He is status post 5 units of packed red blood cells and 2 units of platelets so far this admission. White count 6.1. Hemoglobin 7.3. Platelets 70,000. Sodium 131. Potassium 3.9. Creatinine 0.9. He remains on cefazolin. The patient is seen today 03/08/2021 in follow-up in the intensive care unit. He is currently resting fairly comfortable in bed. Awake and alert in no acute distress. He is maintaining O2 saturations in the 90s on room air. 0.9 normal saline at 10 mL per hour. He has received 5 units of packed red blood cells and 2 packs of platelets this admission. His urine is a bit less bloody today compared to yesterday. Continues bladder irrigation continues her urology. White count 6.7. Hemoglobin 7.8. Platelet count 38,000. Sodium 130. Potas sium 3.1. Creatinine 0.68. He remains on antibiotics in the form of cefazolin. 03/09/2021, the patient is being seen in follow-up in the intensive care unit. The patient is post TURP, TURB on 03/04/2021, complicated by bladder perforation and the patient returned back to the operating room on 03/06/2021 for urinary clot retention, open repair of a bladder perforation. The patient has a suprap ubic catheter and a Jurado catheter in place. He is receiving continuous irrigation through this recovery catheter and drained with a Jurado catheter. He also has a MARYCARMEN drain at the incision site. Some catheter irrigation was done by urology and the Jurado catheter is draining well at this point in time. His urine is clearing of the MARYCARMEN output is minimal at this point in time. Hemoglobin is also remains stable. He is using incentive spirometer. He is afebrile. He remains on IV cefazolin. The irrigation is constant through the suprapubic catheter. He has recovered from his acute kidney injury. Sodium level is also stable. Potassium level is being replaced. The patient remains on room air oxygen for now. Patient is going through approximately 4.5 L of saline drainage through his suprapubic catheter in an 8 hours to 12 hour period. The sodium level today is at 130. The rest of the electrodes are normal. Renal function is normal. Cultures have not been done. The patient had staph epidermidis on the initial cultures on the urine. The hemoglobin today is at 9.1. 03/10/2021, the patient is being seen outside the intensive care unit. The patient has been transferred outside intensive care unit. The patient has essentially cleared his hematuria. The bladder irrigation has been discontinued. His hemoglobin is stable. The patient continues to have a MARYCARMEN drain in place. Potassium is to be replaced. The potassium level is down to 2.9. Sodium level is also on 129 which is anticipated to improve once the bladder irrigation was discontinued. The patient otherwise doing well. He is tolerating diet. Hemodynamically stable. Objective - Vital Signs Vital signs: Vital Signs Temp 98.6 F 03/10/21 11:15 Pulse 98 03/10/21 11:15 Resp 16 03/10/21 11:15 BP 116/67 03/10/21 11:15 Pulse Ox 98 03/10/21 05:32 Intake & Output 03/09/21 03/10/21 03/10/21 18:59 06:59 18:59 Intake Total 400 Output Total 1505 6200 4000 Balance -1505 -5800 -4000 Weight 58.7 kg Intake: Oral 400 Output: Drainage 5 Right 5 Urine 1500 6200 4000 Other: Voiding Method Indwelling Catheter Indwelling Catheter Indwelling Catheter - Exam GENERAL EXAM: Alert, 55-year-old male patient, on room air, comfortable in no apparent distress. HEAD: Normocephalic. EYES: Normal reaction of pupils, equal size. NOSE: Clear with pink turbinates. THROAT: No erythema or exudates. NECK: No masses, no JVD. CHEST: No chest wall deformity. LUNGS: Equal air entry with no crackles, wheeze, rhonchi or dullness. CVS: S1 and S2 normal with no audible murmur, regular rhythm. ABDOMEN: Suprapubic catheter in place with irrigation. No hepatosplenomegaly, normal bowel sounds, no guarding or rigidity. SPINE: No scoliosis or deformity SKIN: No rashes CENTRAL NERVOUS SYSTEM: No focal deficits, tone is normal in all 4 extremities. EXTREMITIES: There is no peripheral edema. No clubbing, no cyanosis. Peripheral pulses are intact. - Labs CBC & Chem 7: 03/10/21 09:39 03/10/21 09:39 Labs: Abnormal Lab Results - Last 24 Hours (Table) 03/10/21 03/10/21 Range/Units 09:39 09:39 RBC 2.76 L (4.30-5.90) m/uL Hgb 8.8 L (13.0-17.5) gm/dL Hct 24.5 L (39.0-53.0) % Plt Count 24 L (150-450) k/uL Metamyelocytes # (Man) 0.09 H (0) k/uL Myelocytes # (Manual) 0.05 H (0) k/uL Nucleated RBCs 4 H (0-0) /100 WBC Sodium 129 L (137-145) mmol/L Potassium 2.9 L (3.5-5.1) mmol/L Chloride 96 L (98-107) mmol/L Creatinine 0.57 L (0.66-1.25) mg/dL Glucose 118 H (74-99) mg/dL Calcium 7.4 L (8.4-10.2) mg/dL Assessment and Plan Plan: 1 Postop day #6, status post TURBT, TURP, cystogram, and clot evacuation, secondary to a bladder tumor. Pathology pending. On 03/06/2021 he was returned to the OR and had undergone cystoscopy with evacuation of clot, exploratory laparotomy with repair of bladder rupture. He has a suprapubic catheter in place with continuous irrigation. Post operative day #4. 2 Anemia secondary to above and is status post 5 units of packed red blood cells this admission. 2 units of platelets. 3 Hyponatremia. Improving current sodium 130 4 Acute kidney injury/renal failure , recovered 5 History of BPH. 6 History of osteoarthritis. 7 History of ongoing tobacco use with nicotine addiction. Plan: Replace potassium level Monitor sodium level Suprapubic catheter continuous irrigation has been discontinued and the patient does not have any bleeding for now. Hemoglobin is stable for now. Currently stable from the pulmonary and critical care standpoint Hemodynamically stable and the patient is currently on room air oxygen Pulmonary critical care services will sign off the case.
[2021-03-11] MEDS: POTASSIUM CHLORIDE ER 20 MEQ TAB.ER PO SCH ×3 (00:12→04:07)
[2021-03-11] MEDS: HYDROmorphone 1 MG/ML 1 ML SYRINGE IVP PRN ×5 (01:26→20:01)
[2021-03-11] MEDS: FERROUS SULFATE 325 MG TAB PO SCH ×2 (09:20→16:43)
[2021-03-11] MEDS: OXYBUTYNIN 10 MG TAB.ER.24 PO SCH (09:32)
[2021-03-11] MEDS: DOCUSATE 100 MG CAP PO SCH ×2 (09:32→20:02)
[2021-03-11] MEDS: TAMSULOSIN 0.4 MG CAP.ER.24H PO SCH (09:32)
[2021-03-11] MEDS: PANTOPRAZOLE 40 MG TABLET PO SCH (09:32)
--- NOTE | 2021-03-11 09:53 | P.DS ---
Providers Date of admission: 03/04/21 09:42 Attending physician: Basil Gill MD Consults: 03/04/21 09:28 Consult Physician Stat Consulting Provider: Berna Shafer Consult Reason/Comments: renal failure Do you want consulting provider notified?: Yes 03/04/21 10:30 Consult Physician Stat Consulting Provider: Papo Jalloh Consult Reason/Comments: ICU Management Do you want consulting provider notified?: Already Contacted 03/06/21 16:55 Consult Physician Routine Consulting Provider: Sayda Carter Consult Reason/Comments: Medical management Do you want consulting provider notified?: Yes Primary care physician: Lizzy Del Valle Assessment: this is a 55-year-old male with history of bladder, prostate tumor. He underwent a combined TURP/TURBT on March 04, please see op note dated for surgery details. Of note patient was on clot retention the time of surgery. Greater than 3 L of urine was drained from the bladder. Intraoperative labs showed that the patient was in renal failure, he was admitted to the ICU postoperatively. Patient developed significant hematuria, hemoglobin was down to 5.4. He was taken back to the OR on March 06, there was evidence of anterior bladder perforation. He underwent a explaratory laparotomy with bladder repair. Please see op note dated March 06 for surgery detail. Patient was started on CBI postoperatively. He continued to do well in the postoperative period. His CBI was discontinued on March 10. His MARYCARMEN drain was removed on March 11. He was discharged home on March 11, he will follow up in 10 days for a cystogram. at time of discharge was tolerating a diet, ambulating, pain was controlled Plan - Discharge Summary Discharge Rx Participant: Yes New Discharge Prescriptions: No Action Ibuprofen 600 mg PO Q8H Naproxen [Naprosyn] 500 mg PO BID Tamsulosin [Flomax] 0.4 mg PO DAILY Discharge Medication List Ibuprofen 600 mg PO Q8H 02/27/21 [History] Naproxen [Naprosyn] 500 mg PO BID 02/27/21 [History] Tamsulosin [Flomax] 0.4 mg PO DAILY 02/27/21 [History] Follow up Appointment(s)/Referral(s): Basil Gill MD [STAFF PHYSICIAN] - 03/11/21 [facility], [NON-STAFF] - 1-2 Days Lizzy Del Valle MD [Primary Care Provider] - 03/11/21 8:20 am
--- NOTE | 2021-03-11 10:02 | P.PN ---
Subjective Progress Note Date: 03/10/21 This is a pleasant 55 years old male with past medical history of osteoarthritis and prostate hypertrophy. 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 After the procedure patient brought to the ICU for hyponatremia sodium 121-123 since admission, creatinine was elevated 11-10 since admission. Currently his creatinine this morning is normal at 0.89 and sodium improved up to 131. He was treated with normal saline hydration, also Jurado catheter is in place with catheter irrigation Also postprocedure his hemoglobin dropped to 5.2 on 03/05, he transfused 2 units of blood and his hemoglobin improved to 8.0 Today patient lying in bed looks lethargic but is awake. He is in distress due to pain at the Jurado site. Dressing is in place. He is undergoing bladder irrigation. Also he is getting blood transfusion this morning He denies chest pain or dyspnea. No headache or weakness Vitas looks stable and patient is afebrile. Labs reviewed, he had mild leukocytosis on admission 11.3, currently 6.1, hemoglobin dropped from 8.0 down to 7.3 today, initially was 5.2 and received 2 units of blood. Also patient with thrombocytopenia platelets improved today to 70 K. Sodium 131. Creatinine normal 0.8. Coronavirus nondetected. 03/08/2021 Patient was started yesterday today is more awake and alert however is still tired and is resting in bed, patient is asking if he can be moved to the chair later on during the day. Patient is eating only limited amount of fluid. Hemodynamically stable. Labs reviewed his hemoglobin dropped 7.8. Platelets are low 38. Sodium is 1:30, low potassium 3.1 and magnesium 1.3 are being replaced per protocol. Patient still has expected surgical site abdominal wane. Suprapubic urinary catheter is in a Place as well as MARYCARMEN drain. Patient is receiving 1 unit of blood according to urology team He is still on cefazolin. He is getting bladder irrigation 03/10/2021 Patient is seen this morning in follow-up and remains hemodynamically stable and continues with bladder irrigation indwelling Jurado catheter for recent TURP and is being closely followed by urology. Patient denies any chest pain, shortness of breath, or palpitations. Patient is tolerating diet with no reports of nausea or vomiting noted. Patient is afebrile. Patient remains on IV antibiotics for possible urinary tract infection. Patient does have indwelling Jurado catheter along with suprapubic catheter. nephrology also following for acute kidney injury and hyponatremia. Review of systems: Constitutional: No reports of fatigue, fever, or chills Cardiovascular: No reports of chest pain or palpitations Respiratory: No reports of shortness of breath or cough GI: No reports of nausea, vomiting, or diarrhea : No reports of dysuria or retention Neurovascular: No reports of weakness or numbness All medications have been reviewed Physical exam: GENERAL: The patient is alert and oriented x3, not in any acute distress. Well developed, well nourished. HEENT: Pupils are round and equally reacting to light. EOMI. No scleral icterus. No conjunctival pallor. Normocephalic, atraumatic. No pharyngeal erythema. No thyromegaly. CARDIOVASCULAR: S1 and S2 present. No murmurs, rubs, or gallops. PULMONARY: Chest is clear to auscultation, no wheezing or crackles. ABDOMEN: Soft, nontender, nondistended, normoactive bowel sounds. No palpable organomegaly. MUSCULOSKELETAL: No joint swelling or deformity. EXTREMITIES: No cyanosis, clubbing, or pedal edema. NEUROLOGICAL: Gross neurological examination did not reveal any focal deficits. SKIN: No rashes. No petechiae Assessment: Tumor of the urinary bladder extending to the prostate, status post TURP on 03/04 Urinary Bladder rupture status post exploratory laparotomy and bladder repair on 03/06 gross hematuria secondary to above three affiliated blood loss anemia secondary to hematuria Thrombocytopenia Hyponatremia, improving Acute kidney injury, resolved GI prophylaxis DVT prophylaxis Full code Plan: Recommend to continue with current medications and management. Patient admitted under Urology status post TURP and was undergoing indwelling Jurado catheter along with suprapubic catheter and irrigation which has been clamped. Hemoglobin is stable at 8.8, patient continues to have low sodium and potassium was critically low at 2.9 and will replace per protocol and repeat. Nephrology also following. Will repeat labs and continue to follow along with urology during hospitalization. Thank you for this consultation. Objective - Vital Signs Vital signs: Vital Signs Temp 98.9 F 03/10/21 05:32 Pulse 95 03/10/21 05:32 Resp 16 03/10/21 05:32 BP 144/78 03/10/21 05:32 Pulse Ox 98 03/10/21 05:32 Intake & Output 03/09/21 03/10/21 03/10/21 18:59 06:59 18:59 Intake Total 400 Output Total 1505 6200 3200 Balance -1505 -5800 -3200 Weight 58.7 kg Intake: Oral 400 Output: Drainage 5 Right 5 Urine 1500 6200 3200 Other: Voiding Method Indwelling Catheter Indwelling Catheter - Labs CBC & Chem 7: 03/10/21 09:39 03/11/21 01:56
[2021-03-11 10:51] LABS: African American GFR (CKD) >90 (>60 ml/min/1.73 sqM); Anion Gap 4 mmol/L; Blood Urea Nitrogen 11 mg/dL (9-20); Calcium 7.7 mg/dL (8.4-10.2); Carbon Dioxide 30 mmol/L (22-30); Chloride 97 mmol/L (98-107); Glucose 163 mg/dL (74-99); Non-African American GFR(CKD) >90 (>60 ml/min/1.73 sqM); Potassium 3.5 mmol/L (3.5-5.1); Sodium 131 mmol/L (137-145)
[2021-03-11] MEDS ORDERED: POTASSIUM CHLORIDE ER 20 MEQ TAB.ER PO ONE (11:30)
--- NOTE | 2021-03-11 11:55 | P.PN ---
Subjective Progress Note Date: 03/11/21 55-year-old male who was seen by urology recently for gross hematuria. Today, the patient underwent a TURBT, TURP, clot evacuation, and cystogram. The patient had a bladder tumor which apparently was invading the prostate. I was called by the urologist after the procedure to asked whether or not the patient could be watched more closely in the intensive care unit. The patient was found to have a sodium of 123, in addition, the patient's BUN was 155 with a creatinine of 10.32. For these reasons, the patient was placed in the intensive care unit. The patient's on room air. The patient's getting saline at 130 mL an hour. He'll be seen by nephrology. 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 Laboratory data includes a sodium 127, potassium 4, chlorides 92, CO2 20, anion gap 15, down from 25, and a BUN and creatinine was at 124 and 6.76. Calcium is 7.7. The patient is seen today 03/05/2021 in follow-up in the intensive care unit. He is currently sitting up in bed. Awake and alert in no acute distress. Postoperative day #1. He is maintaining good O2 saturations in the 90s on room air. He has 0.45 normal saline at 125 ML's per hour. His sodium is 131. Potassium 3.8. BUN 55. Creatinine down to 1.3. Glucose 183. AST 107. ALT 16. Alk phos 363. Pathology pending. The patient is seen today 03/06/2021 in follow-up in the intensive care unit. He is a surgical surgical overflow. He is sitting up in bed. Awake and alert in no acute distress. He is maintaining O2 saturations in the 90s on room air. He has 0.45 normal saline at 125 mL per hour. His hemoglobin was 7.7 and he was transfused 1 unit of packed red blood cells. Current hemoglobin 8.1. White count 10.3. Pathology still pending. Patient seen today 03/07/2021 in follow-up in the intensive care unit. He did end up going back for an exploratory laparotomy yesterday with a perforated bladder and repair. There is evacuation of clots. The super tube catheter was placed and he is receiving continuous irrigations now. This is postoperative day #1. He remains awake and alert. On room air oxygen without any desaturations. No IV fluids currently. He is status post 5 units of packed red blood cells and 2 units of platelets so far this admission. White count 6.1. Hemoglobin 7.3. Platelets 70,000. Sodium 131. Potassium 3.9. Creatinine 0.9. He remains on cefazolin. The patient is seen today 03/08/2021 in follow-up in the intensive care unit. He is currently resting fairly comfortable in bed. Awake and alert in no acute distress. He is maintaining O2 saturations in the 90s on room air. 0.9 normal saline at 10 mL per hour. He has received 5 units of packed red blood cells and 2 packs of platelets this admission. His urine is a bit less bloody today compared to yesterday. Continues bladder irrigation continues her urology. White count 6.7. Hemoglobin 7.8. Platelet count 38,000. Sodium 130. Potass ium 3.1. Creatinine 0.68. He remains on antibiotics in the form of cefazolin. The patient is seen today 03/11/2021 in follow-up on the regular medical floor. He is resting quite comfortably in bed. Awake and alert in no acute distress. He denies any shortness of breath, cough or congestion. Maintaining O2 saturation the 90s on room air. He's been afebrile. Hemodynamically stable. Continues bladder irrigation was stopped yesterday. MARYCARMEN drain removed today. Urine is remaining clear. Objective - Vital Signs Vital signs: Vital Signs Temp 98.4 F 03/11/21 11:05 Pulse 105 H 03/11/21 11:05 Resp 16 03/11/21 11:05 BP 129/81 03/11/21 11:05 Pulse Ox 92 L 03/11/21 05:00 Intake & Output 03/10/21 03/11/21 03/11/21 18:59 06:59 18:59 Intake Total 480 120 Output Total 4000 1100 2 Balance -3520 -980 -2 Intake: Oral 480 120 Output: Drainage 2 Right 2 Urine 4000 1100 Other: Voiding Method Indwelling Catheter Indwelling Catheter - Exam GENERAL EXAM: Alert, 55-year-old male patient, on room air, comfortable in no apparent distress. HEAD: Normocephalic. EYES: Normal reaction of pupils, equal size. NOSE: Clear with pink turbinates. THROAT: No erythema or exudates. NECK: No masses, no JVD. CHEST: No chest wall deformity. LUNGS: Equal air entry with no crackles, wheeze, rhonchi or dullness. CVS: S1 and S2 normal with no audible murmur, regular rhythm. ABDOMEN: MARYCARMEN drain removed. No hepatosplenomegaly, normal bowel sounds, no guarding or rigidity. SPINE: No scoliosis or deformity SKIN: No rashes CENTRAL NERVOUS SYSTEM: No focal deficits, tone is normal in all 4 extremities. EXTREMITIES: There is no peripheral edema. No clubbing, no cyanosis. Peripheral pulses are intact. - Labs CBC & Chem 7: 03/10/21 09:39 03/11/21 09:29 Labs: Abnormal Lab Results - Last 24 Hours (Table) 03/10/21 03/10/21 03/11/21 Range/Units 09:39 22:08 01:56 Plt Count 24 L (150-450) k/uL Metamyelocytes # (Man) 0.09 H (0) k/uL Myelocytes # (Manual) 0.05 H (0) k/uL Nucleated RBCs 4 H (0-0) /100 WBC Sodium (137-145) mmol/L Potassium 3.3 L 3.4 L (3.5-5.1) mmol/L Chloride (98-107) mmol/L Creatinine (0.66-1.25) mg/dL Glucose (74-99) mg/dL Calcium (8.4-10.2) mg/dL 03/11/21 Range/Units 09:29 Plt Count (150-450) k/uL Metamyelocytes # (Man) (0) k/uL Myelocytes # (Manual) (0) k/uL Nucleated RBCs (0-0) /100 WBC Sodium 131 L (137-145) mmol/L Potassium (3.5-5.1) mmol/L Chloride 97 L (98-107) mmol/L Creatinine 0.61 L (0.66-1.25) mg/dL Glucose 163 H (74-99) mg/dL Calcium 7.7 L (8.4-10.2) mg/dL Assessment and Plan Assessment: 1 Postop day #4, status post TURBT, TURP, cystogram, and clot evacuation, secondary to a bladder tumor. Pathology pending. On 03/06/2021 he was returned to the OR and had undergone cystoscopy with evacuation of clot, exploratory laparotomy with repair of bladder rupture. He has a suprapubic catheter in place with continuous irrigation. Post operative day #5. 2 Anemia secondary to above and is status post 5 units of packed red blood cells this admission. 2 units of platelets. Hemoglobin 8.8. Platelets 24,000. 3 Hyponatremia. Improving current sodium 131 4 New onset acute kidney injury/renal failure. Recovered currently 0.61 creatinine 5 History of BPH. 6 History of osteoarthritis. 7 History of ongoing tobacco use with nicotine addiction. Plan: The patient was seen and evaluated CBI discontinued yesterday, MARYCARMEN drain removed today For discharge per urology with plans for follow-up cystogram in the outpatient setting Pathology pending I, the cosigning physician, performed a history & physical examination of the patient. Lungs sounds are clear. Maintaining good O2 saturations in the 90s on room air. I discussed the assessment and plan of care with my nurse practitioner, Silke Frederick. I attest to the above note as dictated by her.
[2021-03-11 12:09] LABS: MCH 31.7 pg (25.0-35.0); MCHC 35.9 g/dL (31.0-37.0); MCV 88.4 fL (80.0-100.0); Mean Platelet Volume 9.3; RBC 2.83 m/uL (4.30-5.90); RDW 14.1 % (11.5-15.5)
[2021-03-11 12:41] LABS: Platelet Count 22 k/uL (150-450)
[2021-03-11 13:15] LABS: Eosinophils # (M) 0.08 k/uL (0-0.7); Lymphocytes # (M) 1.22 k/uL (1.0-4.8); Metamyelocytes # (M) 0.13 k/uL (0); Metamyelocytes % 3 %; Monocytes # (M) 0.34 k/uL (0-1.0); Myelocytes # (M) 0.13 k/uL (0); Myelocytes % 3 %; Neutrophils # (M) 2.35 k/uL (1.3-7.7); Neutrophils % (M) 56 %; Nucleated Red Blood Cells 6 /100 WBC (0-0); Total Cells Counted 200; WBC 4.2 k/uL (3.8-10.6)
[2021-03-11 13:16] LABS: Anisocytosis (M) Present; Polychromasia Present
--- NOTE | 2021-03-11 15:54 | PN ---
PROGRESS NOTE Patient is seen for followup for acute kidney injury which was mostly obstructive uropathy. Patient has an indwelling Jurado catheter. Serum creatinine has improved, down to 0.6 from 12.1 on initial admission. Potassium has been staying on the lower side, which has been replaced. Patient wants to go home today. On examination, blood pressure was 129/81, heart rate 105 per minute. Patient is afebrile. EXAMINATION OF THE HEART: S1 and S2. EXAMINATION OF LUNGS: Decreased breath sounds at the bases. Abdomen is soft, non-tender. Examination of lower extremities shows no evidence of edema. WHEEL INSTALLER EXAM: Grossly intact. Labs show hemoglobin 9.0, sodium 131, potassium 3.5, serum creatinine 0.6. ASSESSMENT: 1. Acute kidney injury, obstructive uropathy, currently improved. 2. Hypokalemia, status post replacement, mostly associated with postobstructive diuresis. 3. Bladder rupture post TURP procedure, status post repair. 4. Metabolic acidosis associated with acute kidney injury, now resolved. 5. Papillary carcinoma of the bladder. PLAN: Continue Jurado catheter. Replace potassium. Monitor electrolytes as outpatient post discharge. MMODL / IJN: [id number] /
[2021-03-11] MEDS: SODIUM CHLORIDE 0.9% IRRIGATIO 3,000 ML IRRIGATION SCH (16:42)
[2021-03-12] MEDS: HYDROmorphone 1 MG/ML 1 ML SYRINGE IVP PRN ×4 (00:24→16:32)
--- NOTE | 2021-03-12 01:35 | P.PN ---
Subjective Progress Note Date: 03/11/21 This is a pleasant 55 years old male with past medical history of osteoarthritis and prostate hypertrophy. 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 After the procedure patient brought to the ICU for hyponatremia sodium 121-123 since admission, creatinine was elevated 11-10 since admission. Currently his creatinine this morning is normal at 0.89 and sodium improved up to 131. He was treated with normal saline hydration, also Tao catheter is in place with catheter irrigation Also postprocedure his hemoglobin dropped to 5.2 on 03/05, he transfused 2 units of blood and his hemoglobin improved to 8.0 Today patient lying in bed looks lethargic but is awake. He is in distress due to pain at the Tao site. Dressing is in place. He is undergoing bladder irrigation. Also he is getting blood transfusion this morning He denies chest pain or dyspnea. No headache or weakness Vitas looks stable and patient is afebrile. Labs reviewed, he had mild leukocytosis on admission 11.3, currently 6.1, hemoglobin dropped from 8.0 down to 7.3 today, initially was 5.2 and received 2 units of blood. Also patient with thrombocytopenia platelets improved today to 70 K. Sodium 131. Creatinine normal 0.8. Coronavirus nondetected. 03/08/2021 Patient was started yesterday today is more awake and alert however is still tired and is resting in bed, patient is asking if he can be moved to the chair later on during the day. Patient is eating only limited amount of fluid. Hemodynamically stable. Labs reviewed his hemoglobin dropped 7.8. Platelets are low 38. Sodium is 1:30, low potassium 3.1 and magnesium 1.3 are being replaced per protocol. Patient still has expected surgical site abdominal wane. Suprapubic urinary catheter is in a Place as well as MARYCARMEN drain. Patient is receiving 1 unit of blood according to urology team He is still on cefazolin. He is getting bladder irrigation 03/10/2021 Patient is seen this morning in follow-up and remains hemodynamically stable and continues with bladder irrigation indwelling Tao catheter for recent TURP and is being closely followed by urology. Patient denies any chest pain, shortness of breath, or palpitations. Patient is tolerating diet with no reports of nausea or vomiting noted. Patient is afebrile. Patient remains on IV antibiotics for possible urinary tract infection. Patient does have indwelling Tao catheter along with suprapubic catheter. nephrology also following for acute kidney injury and hyponatremia. 03/11/2021 Patient is evaluated this morning and has had tao and MARYCARMEN drain removed. Urology plans on discharging today. Nephrology following and awaiting repeat am labs to assess potassium and sodium levels. Patient states he wants to go home. No acute overnight issues noted. Hemoglobin is 9 today. Review of systems: Constitutional: No reports of fatigue, fever, or chills Cardiovascular: No reports of chest pain or palpitations Respiratory: No reports of shortness of breath or cough GI: No reports of nausea, vomiting, or diarrhea : No reports of dysuria or retention Neurovascular: No reports of weakness or numbness All medications have been reviewed Active Medications Acetaminophen (Acetaminophen Tab 325 Mg Tab) 650 mg PO Q4HR PRN PRN Reason: Fever and/ or Pain Last Admin: 03/06/21 22:00 Dose: 650 mg Documented by: Belladonna Alkaloids/Opium (Belladonna-Opium 16.2-60 Mg 1 Each Supp) 1 each RECTAL Q6HR PRN PRN Reason: Spasms Stop: 04/03/21 09:28 Docusate Sodium (Docusate 100 Mg Cap) 100 mg PO BID [facility] Last Admin: 03/11/21 20:02 Dose: 100 mg Documented by: Ferrous Sulfate (Ferrous Sulfate 325 Mg Tab) 325 mg PO BID-W/MEALS [facility] Last Admin: 03/11/21 16:43 Dose: 325 mg Documented by: Hydromorphone HCl (Hydromorphone 1 Mg/Ml 1 Ml Syringe) 1 mg IVP Q2HR PRN PRN Reason: Pain Last Admin: 03/12/21 00:24 Dose: 1 mg Documented by: Cefazolin Sodium 1,000 mg/ (Sodium Chloride) 50 mls @ 100 mls/hr IVPB Q8H [facility] Last Admin: 03/11/21 21:28 Dose: 100 mls/hr Documented by: Sodium Chloride (Saline 0.9% Irrigation) 3,000 mls @ 3,000 mls/hr IRRIGATION CONTINUOUS [facility] Last Admin: 03/11/21 16:42 Dose: Not Given Documented by: Lidocaine HCl (Lidocaine 1% (10mg/Ml) For Iv Start) 0.1 ml INTRADERMA PER PROTOCOL PRN PRN Reason: IV Start Stop: 04/03/21 05:53 Last Admin: 03/04/21 07:04 Dose: 0.1 ml Documented by: Miscellaneous Information (Magnesium Replacement Protocol 1 Each Misc) 1 each MISCELLANE DAILY PRN; Protocol PRN Reason: Per Protocol Miscellaneous Information (Potassium Replacement Protocol 1 Each Misc) 1 each MISCELLANE DAILY PRN; Protocol PRN Reason: Per Protocol Ondansetron HCl (Ondansetron 4 Mg/2 Ml Vial) 4 mg IVP Q6HR PRN PRN Reason: Nausea Last Admin: 03/07/21 15:21 Dose: 4 mg Documented by: Oxybutynin Chloride (Oxybutynin 10 Mg Tab.Er.24) 10 mg PO DAILY [facility] Last Admin: 03/11/21 09:32 Dose: 10 mg Documented by: Pantoprazole Sodium (Pantoprazole 40 Mg Tablet) 40 mg PO -KFORMERLY [facility] Last Admin: 03/11/21 09:32 Dose: 40 mg Documented by: Tamsulosin HCl (Tamsulosin 0.4 Mg Cap.Er.24h) 0.4 mg PO DAILY [facility] Stop: 04/04/21 09:01 Last Admin: 03/11/21 09:32 Dose: 0.4 mg Documented by: Physical exam: GENERAL: The patient is alert and oriented x3, not in any acute distress. Well developed, well nourished. HEENT: Pupils are round and equally reacting to light. EOMI. No scleral icterus. No conjunctival pallor. Normocephalic, atraumatic. No pharyngeal erythema. No thyromegaly. CARDIOVASCULAR: S1 and S2 present. No murmurs, rubs, or gallops. PULMONARY: Chest is clear to auscultation, no wheezing or crackles. ABDOMEN: Soft, nontender, nondistended, normoactive bowel sounds. No palpable organomegaly. MUSCULOSKELETAL: No joint swelling or deformity. EXTREMITIES: No cyanosis, clubbing, or pedal edema. NEUROLOGICAL: Gross neurological examination did not reveal any focal deficits. SKIN: No rashes. 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 Patient admitted under Urology status post TURP and has now had tao removed. Nephrology following and awaiting am labs to monitor kidney functions and electrolytes closely. Plan was for possible discharge today and will follow during hospitalization. Thank you for this consultation. Objective - Vital Signs Vital signs: Vital Signs Temp 98.5 F 03/11/21 06:40 Pulse 102 H 03/11/21 06:40 Resp 15 03/11/21 06:40 BP 122/77 03/11/21 06:40 Pulse Ox 92 L 03/11/21 05:00 Intake & Output 03/10/21 03/11/21 03/11/21 18:59 06:59 18:59 Intake Total 480 120 Output Total 4000 1100 Balance -3520 -980 Intake: Oral 480 120 Output: Urine 4000 1100 Other: Voiding Method Indwelling Catheter Indwelling Catheter - Labs CBC & Chem 7: 03/11/21 11:47 03/11/21 09:29 Labs: Abnormal Lab Results - Last 24 Hours (Table) 03/10/21 03/10/21 03/10/21 Range/Units 09:39 09:39 22:08 RBC 2.76 L (4.30-5.90) m/uL Hgb 8.8 L (13.0-17.5) gm/dL Hct 24.5 L (39.0-53.0) % Plt Count 24 L (150-450) k/uL Metamyelocytes # (Man) 0.09 H (0) k/uL Myelocytes # (Manual) 0.05 H (0) k/uL Nucleated RBCs 4 H (0-0) /100 WBC Sodium 129 L (137-145) mmol/L Potassium 2.9 L 3.3 L (3.5-5.1) mmol/L Chloride 96 L (98-107) mmol/L Creatinine 0.57 L (0.66-1.25) mg/dL Glucose 118 H (74-99) mg/dL Calcium 7.4 L (8.4-10.2) mg/dL 03/11/21 Range/Units 01:56 RBC (4.30-5.90) m/uL Hgb (13.0-17.5) gm/dL Hct (39.0-53.0) % Plt Count (150-450) k/uL Metamyelocytes # (Man) (0) k/uL Myelocytes # (Manual) (0) k/uL Nucleated RBCs (0-0) /100 WBC Sodium (137-145) mmol/L Potassium 3.4 L (3.5-5.1) mmol/L Chloride (98-107) mmol/L Creatinine (0.66-1.25) mg/dL Glucose (74-99) mg/dL Calcium (8.4-10.2) mg/dL
[2021-03-12] MEDS: ACETAMINOPHEN TAB 325 MG TAB PO PRN (06:03)
[2021-03-12] MEDS: PANTOPRAZOLE 40 MG TABLET PO SCH (08:19)
[2021-03-12] MEDS: TAMSULOSIN 0.4 MG CAP.ER.24H PO SCH (08:20)
[2021-03-12] MEDS: FERROUS SULFATE 325 MG TAB PO SCH ×2 (08:20→16:32)
[2021-03-12] MEDS: DOCUSATE 100 MG CAP PO SCH ×2 (08:20→19:38)
[2021-03-12] MEDS: OXYBUTYNIN 10 MG TAB.ER.24 PO SCH (08:20)
[2021-03-12 10:54] LABS: Reticulocyte % 1.7 % (0.5-2.0)
[2021-03-12 11:29] LABS: Partial Thromboplastin Time 22.8 sec (22.0-30.0); Prothrombin Time 10.5 sec (9.0-12.0)
[2021-03-12 16:22] LABS: Protein, Total 4.7 g/dL (6.2-8.2)
[2021-03-12] MEDS: SODIUM CHLORIDE 0.9% IRRIGATIO 3,000 ML IRRIGATION SCH (16:29)
--- NOTE | 2021-03-12 16:33 | NM ---
EXAMINATION TYPE: NM bone scan whole body DATE OF EXAM: 03/12/2021 COMPARISON: CT urogram February 24, 2021 HISTORY: Newly diagnosed Prostate cancer. Increased PSA. Delayed whole-body scanning was performed following the injection of 25.4 mCi Tc 99m MDP. Images acq uired 3 hours post injection. Whole body images in anterior and posterior projection along with multiple oblique images of the thor ax abdomen and pelvis along with head and neck and bilateral legs. FINDINGS: Single focus of increased radiotracer uptake left calvarium. Otherwise no suspicious increased radiotracer uptake to suggest metastatic disease to the bone. Jurado catheter is in place. Mild nonspecific uptake at level of knee joint. IMPRESSION: No convincing scintigraphic evidence for metastatic disease to the bone. Nonspecific left-sided whitley rial focal lesion or uptake should be correlated with CT brain study.
--- NOTE | 2021-03-12 16:44 | P.PN ---
Progress Note - Text Progress Note Date: 03/12/21 Platelets were 22,000 yesterday, urine light red, no clots. Denies any abdominal pain or any other symptoms. Awaiting final recommendation from hematology 55 yo S/P TURPTURBT on 03/04/2021. He required transfusion on 03/05/2021. He was returned to the operating room 03/06/2021 for urinary clot retention, and was found to have a bladder perforation, for which he underwent open repair. Discharge canceled yesterday induced thrombocytopenia -urine remains clot free -Awaiting hematology recommendation
[2021-03-12 17:25] LABS: Immunoglobulin M 48.5 mg/dL (40.0-280.0)
--- NOTE | 2021-03-12 20:28 | P.CONS ---
History of Present Illness - Reason for Consult Consult date: 03/12/21 New Prostate Cancer and Bicytopenia Requesting physician: Basil Glil - History of Present Illness Mr. Escoto is a 55 year old patient who presented with hematuria and was diagnosed with prostate cancer. On 02/12/21 his platelet count was 152K, today 22K with active hematuria. He initially was found to have a mass between the bladder and prostate, was admitted 03/03 and underwent TURP 03/04. Pathology consistent with Prostate cancer and PSA over 400. His admission complicated by hyponatremia and transfer to ICU for cloder monitoring and treatment. He is now on our oncology unit and still with hematuria, but platelets continue to trend down. I do not see heparin products so HIT appears unlikely. Likely initial consumption but with a complicated and prolonged hospital stay further work-up is needed. DIC workup and transfusion ordered. Review of Systems All systems: negative Constitutional: Reports as per HPI Past Medical History Past Medical History: Osteoarthritis (OA), Prostate Disorder Additional Past Medical History / Comment(s): Enlarged Prostate. History of Any Multi-Drug Resistant Organisms: None Reported Past Surgical History: Orthopedic Surgery Additional Past Surgical History / Comment(s): Knee scope. Past Anesthesia/Blood Transfusion Reactions: No Reported Reaction Past Psychological History: No Psychological Hx Reported Smoking Status: Current every day smoker Past Alcohol Use History: Occasional Additional Past Alcohol Use History / Comment(s): Has been smoking 10+ yrs, 1ppd. Past Drug Use History: None Reported - Past Family History Mother Family Medical History: No Reported History Medications and Allergies Home Medications Medication Instructions Recorded Confirmed Type Ibuprofen 600 mg PO Q8H 02/27/21 03/04/21 History Naproxen [Naprosyn] 500 mg PO BID 02/27/21 03/04/21 History Tamsulosin [Flomax] 0.4 mg PO DAILY 02/27/21 03/04/21 History Cephalexin [Keflex] 250 mg PO Q12HR 14 Days #28 cap 03/11/21 Rx HYDROcodone/APAP 5-325MG [[place] 1 tab PO Q6HR PRN 3 Days #12 tab 03/11/21 Rx 5-325] Allergies Allergy/AdvReac Type Severity Reaction Status Date / Time tramadol [From Ultram] Allergy Nausea Verified 03/04/21 06:52 Physical Exam Vitals: Vital Signs Temp Pulse Resp BP Pulse Ox 03/12/21 07:22 98.3 F 93 12 105/52 96 03/12/21 05:08 100.0 F H 105 H 18 103/62 95 03/11/21 20:47 98.8 F 115 H 16 140/68 97 03/11/21 20:10 16 Intake and Output 03/11/21 03/12/21 03/12/21 22:59 06:59 14:59 Intake Total 260 900 Output Total 1900 1000 Balance -1640 -100 Intake: Intake, IV Titration 100 Amount ceFAZolin 1,000 mg In 100 Sodium Chloride 0.9% 50 ml @ 100 mls/hr IVPB Q8H [facility] Rx#:[id number] Oral 260 800 Output: Urine 1900 1000 Other: Voiding Method Indwelling Catheter Indwelling Catheter - Constitutional General appearance: cooperative, no acute distress - EENT Eyes: EOMI ENT: NA/AT - Neck Neck: normal ROM - Respiratory Respiratory: bilateral: diminished - Cardiovascular Rhythm: regularly irregular - Gastrointestinal General gastrointestinal: distended - Genitourinary Hematuria in catheter - Integumentary Integumentary: pale - Neurologic Neurologic: CNII-XII intact - Musculoskeletal Musculoskeletal: generalized weakness - Psychiatric Psychiatric: A&O x's 3, appropriate affect Results CBC & Chem 7: 03/11/21 11:47 03/11/21 09:29 Labs: Abnormal Lab Results - Last 24 Hours (Table) 03/11/21 03/12/21 Range/Units 11:47 09:54 RBC 2.83 L (4.30-5.90) m/uL Hgb 9.0 L (13.0-17.5) gm/dL Hct 25.0 L (39.0-53.0) % Plt Count 22 L (150-450) k/uL Metamyelocytes # (Man) 0.13 H (0) k/uL Myelocytes # (Manual) 0.13 H (0) k/uL Nucleated RBCs 6 H (0-0) /100 WBC D-Dimer 8.21 H (<0.60) mg/L FEU Assessment and Plan (1) Prostate CA Current Visit: Yes Status: Acute Code(s): C61 - MALIGNANT NEOPLASM OF PROSTATE SNOMED Code(s): 702453553 (2) Thrombocytopenia Current Visit: Yes Status: Acute Code(s): D69.6 - THROMBOCYTOPENIA, UNSPECIFIED SNOMED Code(s): 267775212 (3) Hyponatremia Current Visit: Yes Status: Acute Code(s): E87.1 - HYPO-OSMOLALITY AND HYPONATREMIA SNOMED Code(s): 58116851 (4) Hematuria Current Visit: No Status: Acute Code(s): R31.9 - HEMATURIA, UNSPECIFIED SNOMED Code(s): 73134719 (5) Normocytic anemia due to blood loss Current Visit: Yes Status: Acute Code(s): D50.0 - IRON DEFICIENCY ANEMIA SECONDARY TO BLOOD LOSS (CHRONIC) SNOMED Code(s): 025764035 (6) Febrile Current Visit: Yes Status: Acute Code(s): R50.9 - FEVER, UNSPECIFIED SNOMED Code(s): 344709527 Plan: Assessment and Recommendations: Thrombocytopenia: -Transfuse platelets with active bleeding and hematuria - Work-up ordered New Diagnosis Prostate Cancer: - Invasion into bladder - Bone scan with Calvaium Met, hyponatremia - Further staging CT C/A/P and PE Protocol - Brain imaging - Elevated PSA Nomocytic Anemia: - Likely secondary to blood loss Hematuria - Anemia work-up Hyponatremia: - Improved Fever and recent Staph infection in urine - Repeat Urinalysis and cultures to assess for possible discontinue of abx with thrombocytopenia - Blood Cultures Physician Attest I have completed the full history and physical and agree with above dictation, dictated as a scribe.
[2021-03-12] MEDS: IOPAMIDOL CONTRAST (ORAL USE) VIAL PO PRN ×2 (20:43→21:33)
[2021-03-12 21:57] LABS: % Iron Saturation 32.96 (15.00-50.00); Iron 67 ug/dL (65-175); LDH 691 U/L (120-246); Total Iron Binding Capacity 203 ug/dL (228-460)
[2021-03-12 23:21] LABS: ALT 18 U/L (10-49); AST 75 U/L (14-35); African American GFR (CKD) 132.1 (60.0-200.0); Albumin 2.5 g/dL (3.8-4.9); Albumin/Globulin Ratio 1.09 (1.60-3.17); Alkaline Phosphatase 325 U/L (41-126); Bilirubin, Conjugated <0.20 mg/dL (0.20-0.40); Blood Urea Nitrogen 9.6 mg/dL (9.0-27.0); Calcium 7.9 mg/dL (8.7-10.3); Carbon Dioxide 25.4 mmol/L (20.0-27.5); Chloride 97 mmol/L (96-109); Globulin 2.3 g/dL (1.6-3.3); Glucose 121 mg/dL (70-110); Potassium 3.9 mmol/L (3.5-5.5); Sodium 135 mmol/L (135-145); Total Protein 4.8 g/dL (6.2-8.2)
--- NOTE | 2021-03-13 | CT ---
EXAMINATION TYPE: CT angio chest DATE OF EXAM: 03/12/2021 COMPARISON: None HISTORY: Metastatic disease. Short of breath. CT DLP: mGycm Automated exposure control for dose reduction was used. CONTRAST: Patient was injected with Isovue 100 mL IV. There are 3-D post processed images. There is some minimal pleural thickening at the lung apices. There is 8mm nodular density in the left lung apex. There is irregular 1.8 x 1.2 cm noncalcified nodular infiltrate in the medial left upper lobe. There is 1 cm noncalcified nodule anterior segment right upper lobe. There is 1 cm nodule adjac ent to the pleura in the anterior left upper lobe. There is some irregular pleural thickening on the right anterior chest wall adjacent to the sternum. This measures up to 1.5 cm in thickness. There are multiple enlarged subcarinal and left bronchial lymph nodes. Largest bronchial lymph node measures 3 cm. The subcarinal lymph node measures 3 cm. There are some noncalcified 1 cm nodular densities shy g the right upper lobe and right lower lobe adjacent to the major fissure. There is no pericardial ef fusion. There is small bilateral pleural effusions. There is some mild atelectasis right lung base. There is no evidence of filling defect in the pulmonary arteries. The thoracic spine is intact. There is no compression fracture. Sternum is intact. The ribs appear in tact. IMPRESSION: No evidence of pulmonary embolism. Multiple pulmonary nodules could relate to metastatic disease. There is mediastinal and bronchial sandra nopathy suspicious for tumor. Small pleural effusions. Nodular pleural thickening seen anterior right upper lobe adjacent to the sternum could be additional metastatic disease.
--- NOTE | 2021-03-13 00:09 | CT ---
EXAMINATION TYPE: CT abdomen pelvis w con DATE OF EXAM: 03/12/2021 COMPARISON: 02/24/2021 HISTORY: Bladder tumor. Hematuria. CT DLP: mGycm Automated exposure control for dose reduction was used. CONTRAST: Performed , patient injected with mL of . The contrast was Isovue 100 mL. There are small pleural effusions. There is minimal atelectasis at the lung bases. There are small pu lmonary nodules also described in the CT chest report. Heart size is normal. Liver shows no focal defect. Spleen is intact. Stomach is intact. There is no pancreatic mass. Gallbl adder is contracted. The bile ducts are not dilated. There is no adrenal mass. There is 2 cm cortical cyst lower pole right kidney. Kidneys have normal si ze. There is some fullness of the left and right renal pelvis and calyces. There is Jurado catheter in the urinary bladder. There is also suprapubic Jurado catheter. Catheters appear in good position. The re is some irregular increased density in the dependent bladder that could be tumor or blood clot. Bl adder wall not well evaluated. There is oral contrast material in the small bowel. There is no sign o f a small bowel obstruction. Delayed images show symmetrical renal function. There is enlargement of the calyces and renal pelvis bilaterally. There is no contrast in the ureters. There is retained fecal material in the large bowel down to the descending colon. There is no ascites or free air. There is no mesenteric edema. Appendix is posterior and appears normal. The lumbar vertebra have normal alignment. There is no compression fracture. Bony pelvis is intact. T he hip joints are intact. IMPRESSION: Irregular posterior wall of the urinary bladder could relate to tumor. Mild constipation. Right renal cortical cysts. Mild bilateral hydronephrosis and hydroureter could relate to some chronic bladder o utlet obstruction. Distal ureteral obstruction not excluded. Small pleural effusions. Pleural fluid is new compared to old exam. Nodular pulmonary densities suspi cious for metastatic disease.
[2021-03-13] MEDS: HYDROmorphone 1 MG/ML 1 ML SYRINGE IVP PRN ×6 (00:46→23:00)
--- NOTE | 2021-03-13 01:28 | P.PN ---
Subjective Progress Note Date: 03/12/21 This is a pleasant 55 years old male with past medical history of osteoarthritis and prostate hypertrophy. 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 After the procedure patient brought to the ICU for hyponatremia sodium 121-123 since admission, creatinine was elevated 11-10 since admission. Currently his creatinine this morning is normal at 0.89 and sodium improved up to 131. He was treated with normal saline hydration, also Tao catheter is in place with catheter irrigation Also postprocedure his hemoglobin dropped to 5.2 on 03/05, he transfused 2 units of blood and his hemoglobin improved to 8.0 Today patient lying in bed looks lethargic but is awake. He is in distress due to pain at the Tao site. Dressing is in place. He is undergoing bladder irrigation. Also he is getting blood transfusion this morning He denies chest pain or dyspnea. No headache or weakness Vitas looks stable and patient is afebrile. Labs reviewed, he had mild leukocytosis on admission 11.3, currently 6.1, hemoglobin dropped from 8.0 down to 7.3 today, initially was 5.2 and received 2 units of blood. Also patient with thrombocytopenia platelets improved today to 70 K. Sodium 131. Creatinine normal 0.8. Coronavirus nondetected. 03/08/2021 Patient was started yesterday today is more awake and alert however is still tired and is resting in bed, patient is asking if he can be moved to the chair later on during the day. Patient is eating only limited amount of fluid. Hemodynamically stable. Labs reviewed his hemoglobin dropped 7.8. Platelets are low 38. Sodium is 1:30, low potassium 3.1 and magnesium 1.3 are being replaced per protocol. Patient still has expected surgical site abdominal wane. Suprapubic urinary catheter is in a Place as well as MARYCARMEN drain. Patient is receiving 1 unit of blood according to urology team He is still on cefazolin. He is getting bladder irrigation 03/10/2021 Patient is seen this morning in follow-up and remains hemodynamically stable and continues with bladder irrigation indwelling Tao catheter for recent TURP and is being closely followed by urology. Patient denies any chest pain, shortness of breath, or palpitations. Patient is tolerating diet with no reports of nausea or vomiting noted. Patient is afebrile. Patient remains on IV antibiotics for possible urinary tract infection. Patient does have indwelling Tao catheter along with suprapubic catheter. nephrology also following for acute kidney injury and hyponatremia. 03/11/2021 Patient is evaluated this morning and has had tao and MARYCARMEN drain removed. Urology plans on discharging today. Nephrology following and awaiting repeat am labs to assess potassium and sodium levels. Patient states he wants to go home. No acute overnight issues noted. Hemoglobin is 9 today. 03/12/2021 Patient is seen today with hematology/oncology consult placed for thrombocytopenia as platelets are 22 today. Further work-up for Cancer progre ssion and DIC in progress. Patient to receive platelets infusion. Patient is now having fevers and will add blood cultures and consider antibiotics. patient was on cefazolin and discontinued as it may be a contributing factor to the thrombocytopenia. CT abd and mri brain ordered. hemoglobin stable. Patient is anxious to go home. Review of systems: Constitutional: No reports of fatigue, fever, or chills Cardiovascular: No reports of chest pain or palpitations Respiratory: No reports of shortness of breath or cough GI: No reports of nausea, vomiting, or diarrhea : No reports of dysuria or retention Neurovascular: No reports of weakness or numbness All medications have been reviewed Active Medications Acetaminophen (Acetaminophen Tab 325 Mg Tab) 650 mg PO Q4HR PRN PRN Reason: Fever and/ or Pain Last Admin: 03/12/21 06:03 Dose: 650 mg Documented by: Belladonna Alkaloids/Opium (Belladonna-Opium 16.2-60 Mg 1 Each Supp) 1 each RECTAL Q6HR PRN PRN Reason: Spasms Stop: 04/03/21 09:28 Docusate Sodium (Docusate 100 Mg Cap) 100 mg PO BID [facility] Last Admin: 03/12/21 19:38 Dose: 100 mg Documented by: Ferrous Sulfate (Ferrous Sulfate 325 Mg Tab) 325 mg PO BID-W/MEALS [facility] Last Admin: 03/12/21 16:32 Dose: 325 mg Documented by: Hydromorphone HCl (Hydromorphone 1 Mg/Ml 1 Ml Syringe) 1 mg IVP Q2HR PRN PRN Reason: Pain Last Admin: 03/13/21 00:46 Dose: 1 mg Documented by: Sodium Chloride (Saline 0.9% Irrigation) 3,000 mls @ 3,000 mls/hr IRRIGATION CONTINUOUS [facility] Last Admin: 03/12/21 16:29 Dose: Not Given Documented by: Lidocaine HCl (Lidocaine 1% (10mg/Ml) For Iv Start) 0.1 ml INTRADERMA PER PROTOCOL PRN PRN Reason: IV Start Stop: 04/03/21 05:53 Last Admin: 03/04/21 07:04 Dose: 0.1 ml Documented by: Miscellaneous Information (Magnesium Replacement Protocol 1 Each Misc) 1 each MISCELLANE DAILY PRN; Protocol PRN Reason: Per Protocol Miscellaneous Information (Potassium Replacement Protocol 1 Each Misc) 1 each MISCELLANE DAILY PRN; Protocol PRN Reason: Per Protocol Ondansetron HCl (Ondansetron 4 Mg/2 Ml Vial) 4 mg IVP Q6HR PRN PRN Reason: Nausea Last Admin: 03/07/21 15:21 Dose: 4 mg Documented by: Oxybutynin Chloride (Oxybutynin 10 Mg Tab.Er.24) 10 mg PO DAILY [facility] Last Admin: 03/12/21 08:20 Dose: 10 mg Documented by: Pantoprazole Sodium (Pantoprazole 40 Mg Tablet) 40 mg PO -BRKFST [facility] Last Admin: 03/12/21 08:19 Dose: 40 mg Documented by: Tamsulosin HCl (Tamsulosin 0.4 Mg Cap.Er.24h) 0.4 mg PO DAILY [facility] Stop: 04/04/21 09:01 Last Admin: 03/12/21 08:20 Dose: 0.4 mg Documented by: Physical exam: GENERAL: The patient is alert and oriented x3, not in any acute distress. Well developed, well nourished. HEENT: Pupils are round and equally reacting to light. EOMI. No scleral icterus. No conjunctival pallor. Normocephalic, atraumatic. No pharyngeal erythema. No thyromegaly. CARDIOVASCULAR: S1 and S2 present. No murmurs, rubs, or gallops. PULMONARY: Chest is clear to auscultation, no wheezing or crackles. ABDOMEN: Soft, nontender, nondistended, normoactive bowel sounds. No palpable organomegaly. MUSCULOSKELETAL: No joint swelling or deformity. EXTREMITIES: No cyanosis, clubbing, or pedal edema. NEUROLOGICAL: Gross neurological examination did not reveal any focal deficits. SKIN: No rashes. 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 Patient admitted under Urology status post TURP and has now had tao removed. Nephrology following and awaiting am labs to monitor kidney functions and electrolytes closely. Plan was for possible discharge today which was canceled and hematology/oncology consulted to thrombocytopenia. DIC work up along with disease progression imaging ordered and pending. Will discontinue cefazolin. P atient with fevers. will continue to follow during hospitalization. Thank you for this consultation. Prognosis is guarded. Objective - Vital Signs Vital signs: Vital Signs Temp 98.3 F 03/12/21 07:22 Pulse 93 03/12/21 07:22 Resp 12 03/12/21 07:22 BP 105/52 03/12/21 07:22 Pulse Ox 96 03/12/21 07:22 Intake & Output 03/11/21 03/12/21 03/12/21 18:59 06:59 18:59 Intake Total 260 900 Output Total 1002 1900 Balance -742 -1000 Intake: Intake, IV Titration 100 Amount ceFAZolin 1,000 mg In 100 Sodium Chloride 0.9% 50 ml @ 100 mls/hr IVPB Q8H [facility] Rx#:[id number] Oral 260 800 Output: Drainage 2 Right 2 Urine 1000 1900 Other: Voiding Method Indwelling Catheter Indwelling Catheter - Labs CBC & Chem 7: 03/11/21 11:47 03/12/21 09:54 Labs: Abnormal Lab Results - Last 24 Hours (Table) 03/11/21 03/11/21 Range/Units 09:29 11:47 RBC 2.83 L (4.30-5.90) m/uL Hgb 9.0 L (13.0-17.5) gm/dL Hct 25.0 L (39.0-53.0) % Plt Count 22 L (150-450) k/uL Metamyelocytes # (Man) 0.13 H (0) k/uL Myelocytes # (Manual) 0.13 H (0) k/uL Nucleated RBCs 6 H (0-0) /100 WBC Sodium 131 L (137-145) mmol/L Chloride 97 L (98-107) mmol/L Creatinine 0.61 L (0.66-1.25) mg/dL Glucose 163 H (74-99) mg/dL Calcium 7.7 L (8.4-10.2) mg/dL
[2021-03-13 02:11] LABS: Appearance,Urine Cloudy (Clear); Bilirubin,Urine Negative (Negative); Blood,Urine Large (Negative); Color,Urine Yellow; Glucose,Urine (UA) Negative (Negative); Ketones,Urine Negative (Negative); Leukocyte Esterase,Urine Moderate (Negative); Mucus,Urine Occasional /hpf; Nitrite,Urine Negative (Negative); PH, Urine 7.5 (5.0-8.0); Protein,Urine Trace (Negative); RBC,Urine >182 /hpf (0-5); Urobilinogen,Urine <2.0 mg/dL (<2.0); WBC,Urine 164 /hpf (0-5)
[2021-03-13 07:29] LABS: HGB 8.6 gm/dL (13.0-17.5); MCH 31.5 pg (25.0-35.0); MCHC 35.6 g/dL (31.0-37.0); MCV 88.3 fL (80.0-100.0); Mean Platelet Volume 8.6; RBC 2.72 m/uL (4.30-5.90); RDW 14.5 % (11.5-15.5)
[2021-03-13 07:53] LABS: Platelet Count 32 k/uL (150-450)
[2021-03-13] MEDS: PANTOPRAZOLE 40 MG TABLET PO SCH (09:01)
[2021-03-13] MEDS: OXYBUTYNIN 10 MG TAB.ER.24 PO SCH (09:01)
[2021-03-13] MEDS: TAMSULOSIN 0.4 MG CAP.ER.24H PO SCH (09:01)
[2021-03-13] MEDS: FERROUS SULFATE 325 MG TAB PO SCH ×2 (09:01→18:08)
[2021-03-13] MEDS: DOCUSATE 100 MG CAP PO SCH ×2 (09:01→19:57)
[2021-03-13 09:21] LABS: Band Neutrophils % 2 %; Eosinophils # (M) 0.12 k/uL (0-0.7); Lymphocytes # (M) 1.48 k/uL (1.0-4.8); Metamyelocytes # (M) 0.12 k/uL (0); Metamyelocytes % 3 %; Monocytes # (M) 0.48 k/uL (0-1.0); Myelocytes # (M) 0.12 k/uL (0); Myelocytes % 3 %; Neutrophils % (M) 41 %; Nucleated Red Blood Cells 10 /100 WBC (0-0); Total Cells Counted 200
[2021-03-13 09:22] LABS: Polychromasia Present
[2021-03-13 09:58] LABS: African American GFR (CKD) 142.4 (60.0-200.0); Albumin 2.6 g/dL (3.8-4.9); Albumin/Globulin Ratio 1.08 (1.60-3.17); Anion Gap 10.9 mmol/L (10.00-18.00); BUN/Creat Ratio 23.2 Ratio (12.00-20.00); Blood Urea Nitrogen 11.6 mg/dL (9.0-27.0); Calcium 7.9 mg/dL (8.7-10.3); Carbon Dioxide 26.1 mmol/L (20.0-27.5); Globulin 2.4 g/dL (1.6-3.3); Non-African American GFR(CKD) 122.9 (60.0-200.0); Potassium 3.8 mmol/L (3.5-5.5); Total Bilirubin 0.3 mg/dL (0.30-1.20)
--- NOTE | 2021-03-13 11:12 | CDI ---
Documentation Clarification Form Date: 03/13/2021 10:43:17 AM From: Nancy Sawant RN CCDS Admit Date: 03/04/2021 09:42:00 AM Patient Name: Pedrito Escoto Visit Number: [id number] Discharge Date: ATTENTION: The Clinical Documentation Specialists (CDI) and [facility] Coding Staff appreciate your assistance in clarifying documentation. Please respond to the clarification below the line at the bottom and electronically sign. The CDI & [facility] Coding staff will review the response and follow-up if needed. Please note: Queries are made part of the Legal Health Record. If you have any questions, please contact the author of this message via ITS. Dr. Basil Gill Prostate is documented Heme Onc Consult, 03/12, but is not noted in subsequent documentation. Clarification is requested. History/Risk Factors: 55-year-old male presents to [facility] for elective TURPT/TURP. The patient has a papillary tumor extending from the bladder neck and involving the prostate Medical history: Prostate Hypertrophy and gross hematuria. 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 Treatment: Heme Onc Consult, TURBT/TURB Please clarify if Prostate cancer is: [ ] Prostate cancer confirmed [ ] Other condition, please specify [ ] Unable to determine Prostate cancer confirmed as per pathology report (Template Last Revised: June 2020) [facility]
--- NOTE | 2021-03-13 11:43 | CDI ---
Documentation Clarification Form Date: 03/13/2021 11:22:20 AM From: Nancy Sawant RN CCDS Admit Date: 03/04/2021 09:42:00 AM Patient Name: Pedrito Escoto Visit Number: [id number] Discharge Date: ATTENTION: The Clinical Documentation Specialists (CDI) and [facility] Coding Staff appreciate your assistance in clarifying documentation. Please respond to the clarification below the line at the bottom and electronically sign. The CDI & [facility] Coding staff will review the response and follow-up if needed. Please note: Queries are made part of the Legal Health Record. If you have any questions, please contact the author of this message via ITS. Dr. Basil Gill Bladder perforation is documented 03/06, Procedure note and patient had TURBT, TURP, Clot evacuation and Cystogram, 03/04. Additional clarification is requested regarding the relationship, if any, that exists between the diagnosis and the procedure. Patients Admitting Diagnosis: Bladder, prostate tumor. Post-Operative Diagnosis: Bladder, prostate tumor. Procedure performed: TURBT, TURP, Clot Evacuation and Cystogram. History/Risk Factors: 55-year-old male presents to [facility] for elective TURPT/TURP. The patient has a papillary tumor extending from the bladder neck and involving the prostate Medical history: Prostate Hypertrophy and gross hematuria. 03/04, Medicine consult Clinical Indicators: Procedure Note 03/06: Cystoscopy of clot, exploratory laparotomy with repair of bladder rupture. Lab work 03/05 showed significantly decreased hemoglobin level, and the Jurado catheter occluded overnight. The Jurado catheter was replaced but couldnt be adequately irrigated due to clot. Procedure Note 03/06: A small right anterior bladder wall perforation was noted, measuring approximately 2cm in length. The patients bladder was noted to be very thin. Some intravesical extension of the prostate was noted. There was generalized oozing but no significant active bleeding. Treatment: 03/06: Repair of bladder rupture. 03/06 Suprapubic cystostomy. What relationship, if any, exists between the diagnosis of Bladder Rupture and the procedure: [ ] Bladder Rupture is a complication of surgical procedure [ ] Bladder Rupture is an expected outcome of the surgical procedure [ ] Bladder Rupture is related to patients co-morbid condition(s) of a thin bladder wall & not a complication of the procedure. [ ] Bladder Rupture is related to patients co-morbid condition(s) of (please specify) l & not a complication of the procedure [ ] Other please specify ____ [ ] Unable to determine Bladder rupture cause is multifactorial, patient had an extensive tumor and thrombocytopenia which increased his risk of bleeding and post surgical complication (Template Last Revised: June 2020) [facility]
[2021-03-13 12:47] LABS: Free Kappa Lt Chain Qnt, Serum 3.65 mg/dL (0.33-1.94)
[2021-03-13] MEDS: SODIUM CHLORIDE 0.9% IRRIGATIO 3,000 ML IRRIGATION SCH (14:05)
[2021-03-13 15:32] LABS: Albumin 1.99 g/dL (3.80-4.90); Gamma Globulin 0.76 g/dL (0.70-1.50)
--- NOTE | 2021-03-13 16:15 | P.PN ---
Progress Note - Text Progress Note Date: 03/13/21 No acute overnight event , urine light red, no clots. hgn stab;e Denies any abdominal pain or any other symptoms. 55 yo S/P TURPTURBT on 03/04/2021. He required transfusion on 03/05/2021. He was returned to the operating room 03/06/2021 for urinary clot retention, and was found to have a bladder perforation, for which he underwent open repair. Discharge canceled yesterday induced thrombocytopenia. Pathology came back [place] 8 prostate cancer. Heme/oncology onboard -urine remains clot free -OK for discharge from urology standpoint with the tao catheter once cleared by hematology
--- NOTE | 2021-03-13 20:28 | P.PN ---
Subjective Progress Note Date: 03/13/21 Principal diagnosis: New prostate cancer Review of CT reviewed multiple pulmonary nodules, there is distance from prostate mass and with patients known history of tobacco abuse it is felt that there is a possibility this may be metastatic versus second primary cancer. Therefore Dr. Salgado has spoken to pulmonary and plan for Bronchoscopy with biopsy Objective - Vital Signs Vital signs: Vital Signs Temp 98.8 F 03/13/21 13:00 Pulse 102 H 03/13/21 13:00 Resp 18 03/13/21 13:00 BP 114/75 03/13/21 13:00 Pulse Ox 96 03/13/21 13:00 Intake & Output 03/13/21 03/13/21 03/14/21 06:59 18:59 06:59 Intake Total 1356 600 Output Total 2900 Balance -1544 600 Intake: Oral 1000 600 Blood Product 356 Platelet Pheresis Pas 356 Psoralen Unit [id number] Output: Urine 2900 Suprapubic 1600 Other: Voiding Method Indwelling Catheter Indwelling Catheter - Exam Alert NAD Poor dentition Lung: Rhonchi Abdomen: Tender [place] Bracelet on ankle - Labs CBC & Chem 7: 03/13/21 05:49 03/13/21 05:49 Labs: Abnormal Lab Results - Last 24 Hours (Table) 03/05/21 03/12/21 03/12/21 Range/Units 12:16 01:30 09:54 RBC (4.30-5.90) m/uL Hgb (13.0-17.5) gm/dL Hct (39.0-53.0) % Plt Count (150-450) k/uL Metamyelocytes # (Man) (0) k/uL Myelocytes # (Manual) (0) k/uL Nucleated RBCs (0-0) /100 WBC Creatinine (0.6-1.5) mg/dL BUN/Creatinine Ratio (12.00-20.00) Ratio Glucose 121 H (70-110) mg/dL Calcium 7.9 L (8.7-10.3) mg/dL TIBC 203 L (228-460) ug/dL Transferrin 145.0 L (204.0-354.0) mg/dL Ferritin 3653.0 H (22.0-322.0) ng/mL Total Bilirubin 0.20 L (0.30-1.20) mg/dL Conjugated Bilirubin <0.20 L (0.20-0.40) mg/dL AST 75 H (14-35) U/L Alkaline Phosphatase 325 H (41-126) U/L Lactate Dehydrogenase 691 H (120-246) U/L Total Protein 4.8 L (6.2-8.2) g/dL Albumin 2.5 L (3.8-4.9) g/dL Albumin (PEP) (3.80-4.90) g/dL Albumin/Globulin Ratio 1.09 L (1.60-3.17) g/dL Pxdhl-[id number] (0.10-0.40) g/dL Urine Protein Trace H (Negative) Urine Blood Large H (Negative) Ur Leukocyte Esterase Moderate H (Negative) Urine RBC >182 H (0-5) /hpf Urine WBC 164 H (0-5) /hpf Urine Mucus Occasional H (None) /hpf Free [place] LC, Quant (0.33-1.94) mg/dL Free Lambda LC, Quant (0.57-2.63) mg/dL Crossmatch See Detail 03/12/21 03/13/21 03/13/21 Range/Units 09:54 05:49 05:49 RBC 2.72 L (4.30-5.90) m/uL Hgb 8.6 L (13.0-17.5) gm/dL Hct 24.0 L (39.0-53.0) % Plt Count 32 L (150-450) k/uL Metamyelocytes # (Man) 0.12 H (0) k/uL Myelocytes # (Manual) 0.12 H (0) k/uL Nucleated RBCs 10 H (0-0) /100 WBC Creatinine 0.5 L (0.6-1.5) mg/dL BUN/Creatinine Ratio 23.20 H (12.00-20.00) Ratio Glucose (70-110) mg/dL Calcium 7.9 L (8.7-10.3) mg/dL TIBC (228-460) ug/dL Transferrin (204.0-354.0) mg/dL Ferritin (22.0-322.0) ng/mL Total Bilirubin (0.30-1.20) mg/dL Conjugated Bilirubin (0.20-0.40) mg/dL AST 94 H (14-35) U/L Alkaline Phosphatase 332 H (41-126) U/L Lactate Dehydrogenase (120-246) U/L Total Protein 5.0 L (6.2-8.2) g/dL Albumin 2.6 L (3.8-4.9) g/dL Albumin (PEP) 1.99 L (3.80-4.90) g/dL Albumin/Globulin Ratio 1.08 L (1.60-3.17) g/dL Avmbu-7-Yvlownvlf 0.60 H (0.10-0.40) g/dL Urine Protein (Negative) Urine Blood (Negative) Ur Leukocyte Esterase (Negative) Urine RBC (0-5) /hpf Urine WBC (0-5) /hpf Urine Mucus (None) /hpf Free [place] LC, Quant 3.65 H (0.33-1.94) mg/dL Free Lambda LC, Quant 3.82 H (0.57-2.63) mg/dL Crossmatch Microbiology - Last 24 Hours (Table) 03/12/21 01:30 Urine Culture - Preliminary Urine,Voided Assessment and Plan (1) Prostate CA Current Visit: Yes Status: Acute Code(s): C61 - MALIGNANT NEOPLASM OF PROSTATE SNOMED Code(s): 406665832 (2) Thrombocytopenia Current Visit: Yes Status: Acute Code(s): D69.6 - THROMBOCYTOPENIA, UNSPECIFIED SNOMED Code(s): 474471820 (3) Hyponatremia Current Visit: Yes Status: Acute Code(s): E87.1 - HYPO-OSMOLALITY AND HYPONATREMIA SNOMED Code(s): 89511580 (4) Hematuria Current Visit: No Status: Acute Code(s): R31.9 - HEMATURIA, UNSPECIFIED SNOMED Code(s): 88479140 (5) Normocytic anemia due to blood loss Current Visit: Yes Status: Acute Code(s): D50.0 - IRON DEFICIENCY ANEMIA SECONDARY TO BLOOD LOSS (CHRONIC) SNOMED Code(s): 903865191 (6) Febrile Current Visit: Yes Status: Acute Code(s): R50.9 - FEVER, UNSPECIFIED SNOMED Code(s): 002101511 Plan: Assessment and Recommendations: Thrombocytopenia: -Transfuse platelets with active bleeding and hematuria - Work-up ordered New Diagnosis Prostate Cancer: - Invasion into bladder - Bone scan with Calvaium Met, hyponatremia - Further staging CT C/A/P and PE Protocol Revealing multiple pulmonary nodules - further assess with biopsy, Dr. Salgado has spoken to pulmonology regarding this. - Brain imaging - Elevated PSA Nomocytic Anemia: - Likely secondary to blood loss Hematuria - Anemia work-up Hyponatremia: - Improved Fever and recent Staph infection in urine - Repeat Urinalysis and cultures to assess for possible discontinue of abx with thrombocytopenia - Blood Cultures Physician Attest I have completed the full history and physical and agree with above dictation, dictated as a scribe.
--- NOTE | 2021-03-14 01:44 | P.PN ---
Subjective Progress Note Date: 03/13/21 This is a pleasant 55 years old male with past medical history of osteoarthritis and prostate hypertrophy. 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 After the procedure patient brought to the ICU for hyponatremia sodium 121-123 since admission, creatinine was elevated 11-10 since admission. Currently his creatinine this morning is normal at 0.89 and sodium improved up to 131. He was treated with normal saline hydration, also Tao catheter is in place with catheter irrigation Also postprocedure his hemoglobin dropped to 5.2 on 03/05, he transfused 2 units of blood and his hemoglobin improved to 8.0 Today patient lying in bed looks lethargic but is awake. He is in distress due to pain at the Tao site. Dressing is in place. He is undergoing bladder irrigation. Also he is getting blood transfusion this morning He denies chest pain or dyspnea. No headache or weakness Vitas looks stable and patient is afebrile. Labs reviewed, he had mild leukocytosis on admission 11.3, currently 6.1, hemoglobin dropped from 8.0 down to 7.3 today, initially was 5.2 and received 2 units of blood. Also patient with thrombocytopenia platelets improved today to 70 K. Sodium 131. Creatinine normal 0.8. Coronavirus nondetected. 03/08/2021 Patient was started yesterday today is more awake and alert however is still tired and is resting in bed, patient is asking if he can be moved to the chair later on during the day. Patient is eating only limited amount of fluid. Hemodynamically stable. Labs reviewed his hemoglobin dropped 7.8. Platelets are low 38. Sodium is 1:30, low potassium 3.1 and magnesium 1.3 are being replaced per protocol. Patient still has expected surgical site abdominal wane. Suprapubic urinary catheter is in a Place as well as MARYCARMEN drain. Patient is receiving 1 unit of blood according to urology team He is still on cefazolin. He is getting bladder irrigation 03/10/2021 Patient is seen this morning in follow-up and remains hemodynamically stable and continues with bladder irrigation indwelling Tao catheter for recent TURP and is being closely followed by urology. Patient denies any chest pain, shortness of breath, or palpitations. Patient is tolerating diet with no reports of nausea or vomiting noted. Patient is afebrile. Patient remains on IV antibiotics for possible urinary tract infection. Patient does have indwelling Tao catheter along with suprapubic catheter. nephrology also following for acute kidney injury and hyponatremia. 03/11/2021 Patient is evaluated this morning and has had tao and MARYCARMEN drain removed. Urology plans on discharging today. Nephrology following and awaiting repeat am labs to assess potassium and sodium levels. Patient states he wants to go home. No acute overnight issues noted. Hemoglobin is 9 today. 03/12/2021 Patient is seen today with hematology/oncology consult placed for thrombocytopenia as platelets are 22 today. Further work-up for Cancer progre ssion and DIC in progress. Patient to receive platelets infusion. Patient is now having fevers and will add blood cultures and consider antibiotics. patient was on cefazolin and discontinued as it may be a contributing factor to the thrombocytopenia. CT abd and mri brain ordered. hemoglobin stable. Patient is anxious to go home. 03/13/2021 Patient is seen in follow up this morning and is being closely monitored with urology and oncology following. Newly confirmed prostate Ca. Further work-up be ing done by oncology and CT shows multiple pulmonary nodules and pulmonary being consulted for bronch with biopsy. MRI of the brain was ordered although unable to perform as patient wears a tether on his ankle. Patient asking why brain imaging is ordered and discussed with the patient and family at the bedside about evaluating for any lesions noted in the brain. Patient continues to ask when he will be able to go home. Hemoglobin stable and platelets slightly improved. Repeat UA ordered as well. Review of systems: Constitutional: No reports of fatigue, fever, or chills Cardiovascular: No reports of chest pain or palpitations Respiratory: No reports of shortness of breath or cough GI: No reports of nausea, vomiting, or diarrhea : No reports of dysuria or retention Neurovascular: No reports of weakness or numbness All medications have been reviewed Active Medications Acetaminophen (Acetaminophen Tab 325 Mg Tab) 650 mg PO Q4HR PRN PRN Reason: Fever and/ or Pain Last Admin: 03/12/21 06:03 Dose: 650 mg Documented by: Belladonna Alkaloids/Opium (Belladonna-Opium 16.2-60 Mg 1 Each Supp) 1 each RECTAL Q6HR PRN PRN Reason: Spasms Stop: 04/03/21 09:28 Docusate Sodium (Docusate 100 Mg Cap) 100 mg PO BID [facility] Last Admin: 03/13/21 19:57 Dose: 100 mg Documented by: Ferrous Sulfate (Ferrous Sulfate 325 Mg Tab) 325 mg PO BID-W/MEALS [facility] Last Admin: 03/13/21 18:08 Dose: 325 mg Documented by: Hydromorphone HCl (Hydromorphone 1 Mg/Ml 1 Ml Syringe) 1 mg IVP Q2HR PRN PRN Reason: Pain Last Admin: 03/13/21 23:00 Dose: 1 mg Documented by: Sodium Chloride (Saline 0.9% Irrigation) 3,000 mls @ 3,000 mls/hr IRRIGATION CONTINUOUS [facility] Last Admin: 03/13/21 14:05 Dose: Not Given Documented by: Lidocaine HCl (Lidocaine 1% (10mg/Ml) For Iv Start) 0.1 ml INTRADERMA PER PROTOCOL PRN PRN Reason: IV Start Stop: 04/03/21 05:53 Last Admin: 03/04/21 07:04 Dose: 0.1 ml Documented by: Miscellaneous Information (Magnesium Replacement Protocol 1 Each Misc) 1 each MISCELLANE DAILY PRN; Protocol PRN Reason: Per Protocol Miscellaneous Information (Potassium Replacement Protocol 1 Each Misc) 1 each MISCELLANE DAILY PRN; Protocol PRN Reason: Per Protocol Ondansetron HCl (Ondansetron 4 Mg/2 Ml Vial) 4 mg IVP Q6HR PRN PRN Reason: Nausea Last Admin: 03/07/21 15:21 Dose: 4 mg Documented by: Oxybutynin Chloride (Oxybutynin 10 Mg Tab.Er.24) 10 mg PO DAILY [facility] Last Admin: 03/13/21 09:01 Dose: 10 mg Documented by: Pantoprazole Sodium (Pantoprazole 40 Mg Tablet) 40 mg PO -BRKFST [facility] Last Admin: 03/13/21 09:01 Dose: 40 mg Documented by: Tamsulosin HCl (Tamsulosin 0.4 Mg Cap.Er.24h) 0.4 mg PO DAILY [facility] Stop: 04/04/21 09:01 Last Admin: 03/13/21 09:01 Dose: 0.4 mg Documented by: Physical exam: GENERAL: The patient is alert and oriented x3, not in any acute distress. Well developed, well nourished. HEENT: Pupils are round and equally reacting to light. EOMI. No scleral icterus. No conjunctival pallor. Normocephalic, atraumatic. No pharyngeal erythema. No thyromegaly. CARDIOVASCULAR: S1 and S2 present. No murmurs, rubs, or gallops. PULMONARY: Chest is clear to auscultation, no wheezing or crackles. ABDOMEN: Soft, nontender, nondistended, normoactive bowel sounds. No palpable organomegaly. MUSCULOSKELETAL: No joint swelling or deformity. EXTREMITIES: No cyanosis, clubbing, or pedal edema. NEUROLOGICAL: Gross neurological examination did not reveal any focal deficits. SKIN: No rashes. 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 Patient admitted under Urology status post TURP and has now had tao removed. Nephrology following as well and oncology and extensive work-up in progress. Biopsy confirmed prostate cancer. Pulmonary consulted for bronch and lung biopsy as CT chest revealed multiple pulmonary nodules. Patient with fevers. Repeat UA ordered as well. will continue to follow during hospitalization. Thank you for this consultation. Prognosis is guarded. Objective - Vital Signs Vital signs: Vital Signs Temp 98.3 F 03/13/21 07:51 Pulse 73 03/13/21 07:51 Resp 12 03/13/21 07:51 BP 104/73 03/13/21 07:51 Pulse Ox 97 03/13/21 07:51 Intake & Output 03/12/21 03/13/21 03/13/21 18:59 06:59 18:59 Intake Total 1356 Output Total 800 2900 Balance -800 -1544 Weight 58.7 kg Intake: Oral 1000 Blood Product 356 Platelet Pheresis Pas 356 Psoralen Unit [id number] Output: Urine 800 2900 Suprapubic 1600 Other: Voiding Method Indwelling Catheter Indwelling Catheter - Labs CBC & Chem 7: 03/13/21 05:49 03/13/21 05:49 Labs: Abnormal Lab Results - Last 24 Hours (Table) 03/05/21 03/12/21 03/12/21 Range/Units 12:16 01:30 09:54 RBC (4.30-5.90) m/uL Hgb (13.0-17.5) gm/dL Hct (39.0-53.0) % Plt Count (150-450) k/uL Metamyelocytes # (Man) (0) k/uL Myelocytes # (Manual) (0) k/uL Nucleated RBCs (0-0) /100 WBC D-Dimer 8.21 H (<0.60) mg/L FEU Glucose (70-110) mg/dL Calcium (8.7-10.3) mg/dL TIBC (228-460) ug/dL Transferrin (204.0-354.0) mg/dL Ferritin (22.0-322.0) ng/mL Total Bilirubin (0.30-1.20) mg/dL Conjugated Bilirubin (0.20-0.40) mg/dL AST (14-35) U/L Alkaline Phosphatase (41-126) U/L Lactate Dehydrogenase (120-246) U/L Total Protein (6.2-8.2) g/dL Total Protein (PEP) (6.2-8.2) g/dL Albumin (3.8-4.9) g/dL Albumin/Globulin Ratio (1.60-3.17) g/dL Urine Protein Trace H (Negative) Urine Blood Large H (Negative) Ur Leukocyte Esterase Moderate H (Negative) Urine RBC >182 H (0-5) /hpf Urine WBC 164 H (0-5) /hpf Urine Mucus Occasional H (None) /hpf Crossmatch See Detail 03/12/21 03/12/21 03/13/21 Range/Units 09:54 09:54 05:49 RBC 2.72 L (4.30-5.90) m/uL Hgb 8.6 L (13.0-17.5) gm/dL Hct 24.0 L (39.0-53.0) % Plt Count 32 L (150-450) k/uL Metamyelocytes # (Man) 0.12 H (0) k/uL Myelocytes # (Manual) 0.12 H (0) k/uL Nucleated RBCs 10 H (0-0) /100 WBC D-Dimer (<0.60) mg/L FEU Glucose 121 H (70-110) mg/dL Calcium 7.9 L (8.7-10.3) mg/dL TIBC 203 L (228-460) ug/dL Transferrin 145.0 L (204.0-354.0) mg/dL Ferritin 3653.0 H (22.0-322.0) ng/mL Total Bilirubin 0.20 L (0.30-1.20) mg/dL Conjugated Bilirubin <0.20 L (0.20-0.40) mg/dL AST 75 H (14-35) U/L Alkaline Phosphatase 325 H (41-126) U/L Lactate Dehydrogenase 691 H (120-246) U/L Total Protein 4.8 L (6.2-8.2) g/dL Total Protein (PEP) 4.7 L (6.2-8.2) g/dL Albumin 2.5 L (3.8-4.9) g/dL Albumin/Globulin Ratio 1.09 L (1.60-3.17) g/dL Urine Protein (Negative) Urine Blood (Negative) Ur Leukocyte Esterase (Negative) Urine RBC (0-5) /hpf Urine WBC (0-5) /hpf Urine Mucus (None) /hpf Crossmatch
[2021-03-14] MEDS: HYDROmorphone 1 MG/ML 1 ML SYRINGE IVP PRN ×6 (03:55→21:34)
[2021-03-14] MEDS: DOCUSATE 100 MG CAP PO SCH ×2 (08:12→19:58)
[2021-03-14] MEDS: OXYBUTYNIN 10 MG TAB.ER.24 PO SCH (08:12)
[2021-03-14] MEDS: FERROUS SULFATE 325 MG TAB PO SCH ×2 (08:12→18:05)
[2021-03-14] MEDS: TAMSULOSIN 0.4 MG CAP.ER.24H PO SCH (08:12)
[2021-03-14] MEDS: PANTOPRAZOLE 40 MG TABLET PO SCH (08:12)
--- NOTE | 2021-03-14 08:14 | P.PN ---
Progress Note - Text Progress Note Date: 03/14/21 No acute overnight event , urine blood tinged, no clots. hgn stable Denies any abdominal pain or any other symptoms. 55 yo S/P TURPTURBT on 03/04/2021. He required transfusion on 03/05/2021. He was returned to the operating room 03/06/2021 for urinary clot retention, and was found to have a bladder perforation, for which he underwent open repair. Discharge canceled yesterday induced thrombocytopenia. Pathology came back [place] 8 prostate cancer. Heme/oncology onboard -urine remains clot free -OK for discharge from urology standpoint with the tao catheter once cleared by hematology, and follow up in 1 week for cystogram, and staple removal
[2021-03-14 08:27] LABS: HCT 24.9 % (39.0-53.0); HGB 8.7 gm/dL (13.0-17.5); MCH 31.7 pg (25.0-35.0); MCHC 34.9 g/dL (31.0-37.0); MCV 90.8 fL (80.0-100.0); Mean Platelet Volume 8.9; RBC 2.75 m/uL (4.30-5.90); RDW 15.2 % (11.5-15.5)
[2021-03-14 08:38] LABS: Platelet Count 32 k/uL (150-450)
[2021-03-14 14:38] LABS: Band Neutrophils % 2 %; Basophils # (M) 0.04 k/uL (0-0.2); Eosinophils # (M) 0.11 k/uL (0-0.7); Lymphocytes # (M) 1.51 k/uL (1.0-4.8); Metamyelocytes # (M) 0.04 k/uL (0); Metamyelocytes % 1 %; Monocytes # (M) 0.32 k/uL (0-1.0); Myelocytes # (M) 0.07 k/uL (0); Myelocytes % 2 %; Neutrophils % (M) 42 %; Nucleated Red Blood Cells 11 /100 WBC (0-0); Total Cells Counted 200; WBC 3.6 k/uL (3.8-10.6)
[2021-03-14 14:39] LABS: Polychromasia Present
[2021-03-14] MEDS: SODIUM CHLORIDE 0.9% IRRIGATIO 3,000 ML IRRIGATION SCH (16:53)
[2021-03-15] MEDS: HYDROmorphone 1 MG/ML 1 ML SYRINGE IVP PRN ×3 (01:35→09:03)
[2021-03-15] MEDS: PANTOPRAZOLE 40 MG TABLET PO SCH (09:04)
[2021-03-15] MEDS: TAMSULOSIN 0.4 MG CAP.ER.24H PO SCH (09:04)
[2021-03-15] MEDS: OXYBUTYNIN 10 MG TAB.ER.24 PO SCH (09:04)
[2021-03-15] MEDS: FERROUS SULFATE 325 MG TAB PO SCH ×2 (09:04→18:23)
[2021-03-15] MEDS: DOCUSATE 100 MG CAP PO SCH ×2 (09:04→21:18)
--- NOTE | 2021-03-15 11:03 | P.PN ---
Progress Note - Text Progress Note Date: 03/15/21 No acute overnight event , urine light red , no clots. hgn stable Denies any abdominal pain or any other symptoms. MRI on hold due to tether on ankle. Incision CDI , abdomen soft 55 yo S/P TURPTURBT on 03/04/2021. He required transfusion on 03/05/2021. He was returned to the operating room 03/06/2021 for urinary clot retention, and was found to have a bladder perforation, for which he underwent open repair. Pathology came back [place] 8 prostate cancer. Heme/oncology onboard. CT chest showed multiple pulmonary nodules. Unknown if the system for metastatic disease or a second primary,plan to do a bronchoscopy as an outpatient -urine remains clot free, but looks more hematuric. We'll obtain a CBC today, will check his platelets if they are trending down, we'll transfuse platelet given worsening of his hematuria -We'll start Casodex for his prostate cancer, eventually will transition to Lupron. His worsening hematuria could be bleeding from the prostate tumor.
[2021-03-15 11:51] LABS: HCT 23.2 % (39.0-53.0); HGB 8.2 gm/dL (13.0-17.5); MCH 31.3 pg (25.0-35.0); MCHC 35.1 g/dL (31.0-37.0); RBC 2.61 m/uL (4.30-5.90); RDW 14.6 % (11.5-15.5)
[2021-03-15 12:40] LABS: Mean Platelet Volume 8.7; Platelet Count 36 k/uL (150-450)
[2021-03-15 13:08] LABS: Band Neutrophils % 2 %; Metamyelocytes # (M) 0.11 k/uL (0); Metamyelocytes % 3 %; Myelocytes % 4 %; Neutrophils % (M) 33 %; Nucleated Red Blood Cells 6 /100 WBC (0-0); Total Cells Counted 200
[2021-03-15 13:09] LABS: Eosinophils # (M) 0.07 k/uL (0-0.7); Lymphocytes # (M) 1.76 k/uL (1.0-4.8); Monocytes # (M) 0.36 k/uL (0-1.0); Myelocytes # (M) 0.14 k/uL (0); WBC 3.6 k/uL (3.8-10.6)
[2021-03-15 13:11] LABS: Polychromasia Present
[2021-03-15 13:12] LABS: Anisocytosis (M) Present
[2021-03-15] MEDS: HYDROcodone/APAP 5-325MG 1 EACH TAB PO PRN ×3 (13:14→22:13)
[2021-03-15] MEDS: BICALUTAMIDE 50 MG TAB PO SCH (13:15)
[2021-03-15] MEDS: SODIUM CHLORIDE 0.9% IRRIGATIO 3,000 ML IRRIGATION SCH (14:40)
[2021-03-16 00:03] LABS: HGB 7.4 gm/dL (13.0-17.5); MCH 31.3 pg (25.0-35.0); MCHC 35.4 g/dL (31.0-37.0); MCV 88.3 fL (80.0-100.0); Mean Platelet Volume 9.2; Platelet Count 33 k/uL (150-450); RBC 2.38 m/uL (4.30-5.90); RDW 14.4 % (11.5-15.5)
--- NOTE | 2021-03-16 00:27 | P.PN ---
Subjective Progress Note Date: 03/14/21 This is a pleasant 55 years old male with past medical history of osteoarthritis and prostate hypertrophy. 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 After the procedure patient brought to the ICU for hyponatremia sodium 121-123 since admission, creatinine was elevated 11-10 since admission. Currently his creatinine this morning is normal at 0.89 and sodium improved up to 131. He was treated with normal saline hydration, also Tao catheter is in place with catheter irrigation Also postprocedure his hemoglobin dropped to 5.2 on 03/05, he transfused 2 units of blood and his hemoglobin improved to 8.0 Today patient lying in bed looks lethargic but is awake. He is in distress due to pain at the Tao site. Dressing is in place. He is undergoing bladder irrigation. Also he is getting blood transfusion this morning He denies chest pain or dyspnea. No headache or weakness Vitas looks stable and patient is afebrile. Labs reviewed, he had mild leukocytosis on admission 11.3, currently 6.1, hemoglobin dropped from 8.0 down to 7.3 today, initially was 5.2 and received 2 units of blood. Also patient with thrombocytopenia platelets improved today to 70 K. Sodium 131. Creatinine normal 0.8. Coronavirus nondetected. 03/08/2021 Patient was started yesterday today is more awake and alert however is still tired and is resting in bed, patient is asking if he can be moved to the chair later on during the day. Patient is eating only limited amount of fluid. Hemodynamically stable. Labs reviewed his hemoglobin dropped 7.8. Platelets are low 38. Sodium is 1:30, low potassium 3.1 and magnesium 1.3 are being replaced per protocol. Patient still has expected surgical site abdominal wane. Suprapubic urinary catheter is in a Place as well as MARYCARMEN drain. Patient is receiving 1 unit of blood according to urology team He is still on cefazolin. He is getting bladder irrigation 03/10/2021 Patient is seen this morning in follow-up and remains hemodynamically stable and continues with bladder irrigation indwelling Tao catheter for recent TURP and is being closely followed by urology. Patient denies any chest pain, shortness of breath, or palpitations. Patient is tolerating diet with no reports of nausea or vomiting noted. Patient is afebrile. Patient remains on IV antibiotics for possible urinary tract infection. Patient does have indwelling Tao catheter along with suprapubic catheter. nephrology also following for acute kidney injury and hyponatremia. 03/11/2021 Patient is evaluated this morning and has had tao and MARYCARMEN drain removed. Urology plans on discharging today. Nephrology following and awaiting repeat am labs to assess potassium and sodium levels. Patient states he wants to go home. No acute overnight issues noted. Hemoglobin is 9 today. 03/12/2021 Patient is seen today with hematology/oncology consult placed for thrombocytopenia as platelets are 22 today. Further work-up for Cancer progre ssion and DIC in progress. Patient to receive platelets infusion. Patient is now having fevers and will add blood cultures and consider antibiotics. patient was on cefazolin and discontinued as it may be a contributing factor to the thrombocytopenia. CT abd and mri brain ordered. hemoglobin stable. Patient is anxious to go home. 03/13/2021 Patient is seen in follow up this morning and is being closely monitored with urology and oncology following. Newly confirmed prostate Ca. Further work-up be ing done by oncology and CT shows multiple pulmonary nodules and pulmonary being consulted for bronch with biopsy. MRI of the brain was ordered although unable to perform as patient wears a tether on his ankle. Patient asking why brain imaging is ordered and discussed with the patient and family at the bedside about evaluating for any lesions noted in the brain. Patient continues to ask when he will be able to go home. Hemoglobin stable and platelets slightly improved. Repeat UA ordered as well. 03/14/2021 Patient is currently lying in bed comfortably. No evidence of blood-tinged urine. Denied any complaints of abdominal pain. No nausea vomiting or diarrhea. Hemoglobin is stable. No chest pain or shortness breath. Patient has been afebrile. Laboratory showed WBC 3.6 hemoglobin 8.7 and platelets 32 Urology is on board. Patient is status post TURBT on 03/04/2021. Pathology showed [place] 8 prostate cancer. Hematology oncology is on board. Current medications reviewed. Review of systems: Constitutional: No reports of fatigue, fever, or chills Cardiovascular: No reports of chest pain or palpitations Respiratory: No reports of shortness of breath or cough GI: No reports of nausea, vomiting, or diarrhea : No reports of dysuria or retention Neurovascular: No reports of weakness or numbness All medications have been reviewed Objective - Vital Signs Vital signs: Vital Signs Temp 99.1 F 03/15/21 20:11 Pulse 111 H 03/15/21 20:11 Resp 16 03/15/21 20:11 BP 99/52 03/15/21 20:11 Pulse Ox 97 03/15/21 20:11 Intake & Output 03/15/21 03/15/21 03/16/21 06:59 18:59 06:59 Intake Total 360 Output Total 600 2700 Balance -600 -2340 Intake: Oral 360 Output: Urine 600 2700 Other: Voiding Method Indwelling Catheter Indwelling Catheter - Exam Physical exam: GENERAL: The patient is alert and oriented x3, not in any acute distress. cachectic. HEENT: Pupils are round and equally reacting to light. EOMI. No scleral icterus. No conjunctival pallor. Normocephalic, atraumatic. No pharyngeal erythema. No thyromegaly. CARDIOVASCULAR: S1 and S2 present. No murmurs, rubs, or gallops. PULMONARY: Chest is clear to auscultation, no wheezing or crackles. ABDOMEN: Soft, nontender, nondistended, normoactive bowel sounds. No palpable organomegaly. MUSCULOSKELETAL: No joint swelling or deformity. EXTREMITIES: No cyanosis, clubbing, or pedal edema. NEUROLOGICAL: Gross neurological examination did not reveal any focal deficits. SKIN: No rashes. No petechiae - Labs CBC & Chem 7: 03/15/21 11:34 03/13/21 05:49 Labs: Abnormal Lab Results - Last 24 Hours (Table) 03/15/21 Range/Units 11:34 WBC 3.6 L (3.8-10.6) k/uL RBC 2.61 L (4.30-5.90) m/uL Hgb 8.2 L (13.0-17.5) gm/dL Hct 23.2 L (39.0-53.0) % Plt Count 36 L (150-450) k/uL Neutrophils # (Manual) 1.20 L (1.3-7.7) k/uL Metamyelocytes # (Man) 0.11 H (0) k/uL Myelocytes # (Manual) 0.14 H (0) k/uL Nucleated RBCs 6 H (0-0) /100 WBC Microbiology - Last 24 Hours (Table) 03/12/21 21:17 Blood Culture - Preliminary Blood No Growth after 48 hours 03/12/21 21:17 Blood Culture - Preliminary Blood No Growth after 48 hours Assessment and Plan Assessment: Assessment: 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 Patient admitted under Urology status post TURP--TURBT. Nephrology following as well and oncology and extensive work-up in progress. Biopsy confirmed prostate cancer. Pulmonary consulted for bronch and lung biopsy as CT chest revealed multiple pulmonary nodules.. Repeat UA ordered as well. will continue to follow during hospitalization. . Prognosis is guarded.
--- NOTE | 2021-03-16 00:31 | P.PN ---
Subjective Progress Note Date: 03/15/21 This is a pleasant 55 years old male with past medical history of osteoarthritis and prostate hypertrophy. 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 After the procedure patient brought to the ICU for hyponatremia sodium 121-123 since admission, creatinine was elevated 11-10 since admission. Currently his creatinine this morning is normal at 0.89 and sodium improved up to 131. He was treated with normal saline hydration, also Tao catheter is in place with catheter irrigation Also postprocedure his hemoglobin dropped to 5.2 on 03/05, he transfused 2 units of blood and his hemoglobin improved to 8.0 Today patient lying in bed looks lethargic but is awake. He is in distress due to pain at the Tao site. Dressing is in place. He is undergoing bladder irrigation. Also he is getting blood transfusion this morning He denies chest pain or dyspnea. No headache or weakness Vitas looks stable and patient is afebrile. Labs reviewed, he had mild leukocytosis on admission 11.3, currently 6.1, hemoglobin dropped from 8.0 down to 7.3 today, initially was 5.2 and received 2 units of blood. Also patient with thrombocytopenia platelets improved today to 70 K. Sodium 131. Creatinine normal 0.8. Coronavirus nondetected. 03/08/2021 Patient was started yesterday today is more awake and alert however is still tired and is resting in bed, patient is asking if he can be moved to the chair later on during the day. Patient is eating only limited amount of fluid. Hemodynamically stable. Labs reviewed his hemoglobin dropped 7.8. Platelets are low 38. Sodium is 1:30, low potassium 3.1 and magnesium 1.3 are being replaced per protocol. Patient still has expected surgical site abdominal wane. Suprapubic urinary catheter is in a Place as well as MARYCARMEN drain. Patient is receiving 1 unit of blood according to urology team He is still on cefazolin. He is getting bladder irrigation 03/10/2021 Patient is seen this morning in follow-up and remains hemodynamically stable and continues with bladder irrigation indwelling Tao catheter for recent TURP and is being closely followed by urology. Patient denies any chest pain, shortness of breath, or palpitations. Patient is tolerating diet with no reports of nausea or vomiting noted. Patient is afebrile. Patient remains on IV antibiotics for possible urinary tract infection. Patient does have indwelling Tao catheter along with suprapubic catheter. nephrology also following for acute kidney injury and hyponatremia. 03/11/2021 Patient is evaluated this morning and has had tao and MARYCARMEN drain removed. Urology plans on discharging today. Nephrology following and awaiting repeat am labs to assess potassium and sodium levels. Patient states he wants to go home. No acute overnight issues noted. Hemoglobin is 9 today. 03/12/2021 Patient is seen today with hematology/oncology consult placed for thrombocytopenia as platelets are 22 today. Further work-up for Cancer progre ssion and DIC in progress. Patient to receive platelets infusion. Patient is now having fevers and will add blood cultures and consider antibiotics. patient was on cefazolin and discontinued as it may be a contributing factor to the thrombocytopenia. CT abd and mri brain ordered. hemoglobin stable. Patient is anxious to go home. 03/13/2021 Patient is seen in follow up this morning and is being closely monitored with urology and oncology following. Newly confirmed prostate Ca. Further work-up be ing done by oncology and CT shows multiple pulmonary nodules and pulmonary being consulted for bronch with biopsy. MRI of the brain was ordered although unable to perform as patient wears a tether on his ankle. Patient asking why brain imaging is ordered and discussed with the patient and family at the bedside about evaluating for any lesions noted in the brain. Patient continues to ask when he will be able to go home. Hemoglobin stable and platelets slightly improved. Repeat UA ordered as well. 03/14/2021 Patient is currently lying in bed comfortably. No evidence of blood-tinged urine. Denied any complaints of abdominal pain. No nausea vomiting or diarrhea. Hemoglobin is stable. No chest pain or shortness breath. Patient has been afebrile. Laboratory showed WBC 3.6 hemoglobin 8.7 and platelets 32 Urology is on board. Patient is status post TURBT on 03/04/2021. Pathology showed [place] 8 prostate cancer. Hematology oncology is on board. 03/15/2021 Patient is currently resting in bed. Awake alert and oriented. No complaints of chest pain. No complaints of abdominal pain. Blood in the urine is noted again. Hemoglobin is fairly stable. Hematology oncology is following due to newly diagnosed prostate cancer. CT chest showed multiple pulmonary nodules. MRI of the brain could not be done due to ankle brace. Laboratory data showed WBC 3.6 hemoglobin 8.1 platelets 36,000. Oncology and urology is on board. Current medications reviewed. Review of systems: Constitutional: No reports of fatigue, fever, or chills Cardiovascular: No reports of chest pain or palpitations Respiratory: No reports of shortness of breath or cough GI: No reports of nausea, vomiting, or diarrhea : No reports of dysuria or retention Neurovascular: No reports of weakness or numbness All medications have been reviewed Objective - Vital Signs Vital signs: Vital Signs Temp 99.1 F 03/15/21 20:11 Pulse 111 H 03/15/21 20:11 Resp 16 03/15/21 20:11 BP 99/52 03/15/21 20:11 Pulse Ox 97 03/15/21 20:11 Intake & Output 03/15/21 03/15/21 03/16/21 06:59 18:59 06:59 Intake Total 360 Output Total 600 2700 Balance -600 -2340 Intake: Oral 360 Output: Urine 600 2700 Other: Voiding Method Indwelling Catheter Indwelling Catheter - Exam Physical exam: GENERAL: The patient is alert and oriented x3, not in any acute distress. ca chectic. HEENT: Pupils are round and equally reacting to light. EOMI. No scleral icterus. No conjunctival pallor. Normocephalic, atraumatic. No pharyngeal erythema. No thyromegaly. CARDIOVASCULAR: S1 and S2 present. No murmurs, rubs, or gallops. PULMONARY: Chest is clear to auscultation, no wheezing or crackles. ABDOMEN: Soft, nontender, nondistended, normoactive bowel sounds. No palpable organomegaly. MUSCULOSKELETAL: No joint swelling or deformity. EXTREMITIES: No cyanosis, clubbing, or pedal edema. NEUROLOGICAL: Gross neurological examination did not reveal any focal deficits. SKIN: No rashes. No petechiae - Labs CBC & Chem 7: 03/15/21 11:34 03/13/21 05:49 Labs: Abnormal Lab Results - Last 24 Hours (Table) 03/15/21 Range/Units 11:34 WBC 3.6 L (3.8-10.6) k/uL RBC 2.61 L (4.30-5.90) m/uL Hgb 8.2 L (13.0-17.5) gm/dL Hct 23.2 L (39.0-53.0) % Plt Count 36 L (150-450) k/uL Neutrophils # (Manual) 1.20 L (1.3-7.7) k/uL Metamyelocytes # (Man) 0.11 H (0) k/uL Myelocytes # (Manual) 0.14 H (0) k/uL Nucleated RBCs 6 H (0-0) /100 WBC Microbiology - Last 24 Hours (Table) 03/12/21 21:17 Blood Culture - Preliminary Blood No Growth after 48 hours 03/12/21 21:17 Blood Culture - Preliminary Blood No Growth after 48 hours Assessment and Plan Assessment: Assessment: 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 Patient admitted under Urology status post TURP--TURBT. Nephrology following as well and oncology and extensive work-up in progress. Biopsy confirmed prostate cancer. Pulmonary consulted for bronch and lung biopsy as CT chest revealed multiple pulmonary nodules. Monitor H&H. will continue to follow during hospitalization. . Prognosis is guarded. Time with Patient: Greater than 30
[2021-03-16 01:31] LABS: Band Neutrophils % 7 %; Metamyelocytes % 3 %; Myelocytes % 3 %; Neutrophils % (M) 31 %; Nucleated Red Blood Cells 8 /100 WBC (0-0); Total Cells Counted 100
[2021-03-16 01:32] LABS: Anisocytosis (M) Present; Eosinophils # (M) 0.07 k/uL (0-0.7); Lymphocytes # (M) 1.58 k/uL (1.0-4.8); Metamyelocytes # (M) 0.11 k/uL (0); Monocytes # (M) 0.36 k/uL (0-1.0); Myelocytes # (M) 0.11 k/uL (0); RBC Fragments Present; WBC 3.6 k/uL (3.8-10.6)
[2021-03-16] MEDS: HYDROcodone/APAP 5-325MG 1 EACH TAB PO PRN ×5 (02:18→22:11)
[2021-03-16] MEDS: PANTOPRAZOLE 40 MG TABLET PO SCH (08:16)
[2021-03-16] MEDS: OXYBUTYNIN 10 MG TAB.ER.24 PO SCH (08:16)
[2021-03-16] MEDS: FERROUS SULFATE 325 MG TAB PO SCH ×2 (08:16→17:52)
[2021-03-16] MEDS: TAMSULOSIN 0.4 MG CAP.ER.24H PO SCH (08:16)
[2021-03-16] MEDS: DOCUSATE 100 MG CAP PO SCH ×2 (08:16→19:43)
[2021-03-16] MEDS ORDERED: LEUPROLIDE ACET 7.5 MG SYRINGEKIT IM ONE (11:05)
[2021-03-16 11:39] LABS: HCT 20.9 % (39.0-53.0); HGB 7.5 gm/dL (13.0-17.5); Hyperchromasia Slight; MCH 31.7 pg (25.0-35.0); MCHC 35.7 g/dL (31.0-37.0); MCV 88.6 fL (80.0-100.0); Poikilocytosis Slight; RBC 2.35 m/uL (4.30-5.90); RDW 15.1 % (11.5-15.5)
[2021-03-16 11:51] LABS: Platelet Count 35 k/uL (150-450)
[2021-03-16] MEDS: BICALUTAMIDE 50 MG TAB PO SCH (13:27)
[2021-03-16 14:17] LABS: Band Neutrophils % 7 %; Blast Cells # (M) 0.04 k/uL (0); Eosinophils # (M) 0.08 k/uL (0-0.7); Metamyelocytes % 3 %; Neutrophils % (M) 34 %; Nucleated Red Blood Cells 3 /100 WBC (0-0); Total Cells Counted 100
[2021-03-16 14:18] LABS: Lymphocytes # (M) 1.67 k/uL (1.0-4.8); Metamyelocytes # (M) 0.11 k/uL (0); Monocytes # (M) 0.34 k/uL (0-1.0); WBC 3.8 k/uL (3.8-10.6)
[2021-03-16 14:19] LABS: Anisocytosis (M) Present; Toxic Granulation Present
--- NOTE | 2021-03-16 15:21 | P.PN ---
Progress Note - Text Progress Note Date: 03/16/21 The patient has no complaints. He is afebrile with stable vital signs. The Jurado catheter is draining bloody urine without clots. His hemoglobin and platelet levels today are 7.5 and 35, respectively. He received bicalutamide yesterday and will be started on Lupron. I'm hopeful that this will decrease the bleeding, which is presumed to be due to his known prostate cancer, and allow him to be discharged home.
[2021-03-16] MEDS: SODIUM CHLORIDE 0.9% IRRIGATIO 3,000 ML IRRIGATION SCH (17:46)
--- NOTE | 2021-03-16 20:19 | P.PN ---
Subjective Progress Note Date: 03/16/21 Principal diagnosis: New prostate cancer Awaiting re-evaluation from pulm regarding tissue biopsy of lung nodules. Objective - Vital Signs Vital signs: Vital Signs Temp 98.6 F 03/16/21 12:27 Pulse 108 H 03/16/21 12:27 Resp 15 03/16/21 12:27 BP 100/61 03/16/21 12:27 Pulse Ox 97 03/16/21 12:27 Intake & Output 03/16/21 03/16/21 03/17/21 06:59 18:59 06:59 Intake Total 900 Output Total 600 700 Balance -600 200 Intake: Oral 900 Output: Urine 600 700 Other: Voiding Method Indwelling Catheter Indwelling Catheter - Exam Alert NAD Poor dentition Lung: Rhonchi Abdomen: Tender [place] Bracelet on ankle - Labs CBC & Chem 7: 03/16/21 10:56 03/13/21 05:49 Labs: Abnormal Lab Results - Last 24 Hours (Table) 03/14/21 03/15/21 03/16/21 Range/Units 07:11 23:44 10:56 WBC 3.6 L (3.8-10.6) k/uL RBC 2.38 L 2.35 L (4.30-5.90) m/uL Hgb 7.4 L 7.5 L (13.0-17.5) gm/dL Hct 21.0 L 20.9 L (39.0-53.0) % Plt Count 33 L 35 L (150-450) k/uL Blast Cells % 1 H* % Metamyelocytes # (Man) 0.11 H 0.11 H (0) k/uL Myelocytes # (Manual) 0.11 H (0) k/uL Blast Cells # (Man) 0.04 H (0) k/uL Nucleated RBCs 8 H 3 H (0-0) /100 WBC Pathologist Review See comment A Microbiology - Last 24 Hours (Table) 03/12/21 21:17 Blood Culture - Preliminary Blood No Growth after 72 hours 03/12/21 21:17 Blood Culture - Preliminary Blood No Growth after 72 hours Assessment and Plan (1) Prostate CA Current Visit: Yes Status: Acute Code(s): C61 - MALIGNANT NEOPLASM OF PROSTATE SNOMED Code(s): 285271785 (2) Thrombocytopenia Current Visit: Yes Status: Acute Code(s): D69.6 - THROMBOCYTOPENIA, UNSPECIFIED SNOMED Code(s): 323758404 (3) Hyponatremia Current Visit: Yes Status: Acute Code(s): E87.1 - HYPO-OSMOLALITY AND HYPONATREMIA SNOMED Code(s): 58452827 (4) Hematuria Current Visit: No Status: Inactive Code(s): R31.9 - HEMATURIA, UNSPECIFIED SNOMED Code(s): 41166721 (5) Normocytic anemia due to blood loss Current Visit: Yes Status: Acute Code(s): D50.0 - IRON DEFICIENCY ANEMIA SECONDARY TO BLOOD LOSS (CHRONIC) SNOMED Code(s): 257109494 (6) Febrile Current Visit: Yes Status: Acute Code(s): R50.9 - FEVER, UNSPECIFIED SNOMED Code(s): 822705505 Plan: Assessment and Recommendations: Thrombocytopenia: -Transfuse platelets with active bleeding and hematuria - Work-up ordered New Diagnosis Prostate Cancer: - Invasion into bladder - Bone scan with Calvaium Met, hyponatremia - Further staging CT C/A/P and PE Protocol Revealing multiple pulmonary nodules - further assess with biopsy, Dr. Salgado has spoken to pulmonology regarding this. - Brain imaging - Elevated PSA Nomocytic Anemia: - Likely secondary to blood loss Hematuria - Anemia work-up Hyponatremia: - Improved Fever and recent Staph infection in urine - Repeat Urinalysis and cultures to assess for possible discontinue of abx with thrombocytopenia - Blood Cultures Await pulm re-evaluation for tissue biopsy of lung nodules Carmen and saba initiated by urology Physician Attest I have completed the full history and physical and agree with above dictation, dictated as a scribe.
--- NOTE | 2021-03-16 23:20 | P.PN ---
Subjective Progress Note Date: 03/16/21 This is a pleasant 55 years old male with past medical history of osteoarthritis and prostate hypertrophy. 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 After the procedure patient brought to the ICU for hyponatremia sodium 121-123 since admission, creatinine was elevated 11-10 since admission. Currently his creatinine this morning is normal at 0.89 and sodium improved up to 131. He was treated with normal saline hydration, also Tao catheter is in place with catheter irrigation Also postprocedure his hemoglobin dropped to 5.2 on 03/05, he transfused 2 units of blood and his hemoglobin improved to 8.0 Today patient lying in bed looks lethargic but is awake. He is in distress due to pain at the Tao site. Dressing is in place. He is undergoing bladder irrigation. Also he is getting blood transfusion this morning He denies chest pain or dyspnea. No headache or weakness Vitas looks stable and patient is afebrile. Labs reviewed, he had mild leukocytosis on admission 11.3, currently 6.1, hemoglobin dropped from 8.0 down to 7.3 today, initially was 5.2 and received 2 units of blood. Also patient with thrombocytopenia platelets improved today to 70 K. Sodium 131. Creatinine normal 0.8. Coronavirus nondetected. 03/08/2021 Patient was started yesterday today is more awake and alert however is still tired and is resting in bed, patient is asking if he can be moved to the chair later on during the day. Patient is eating only limited amount of fluid. Hemodynamically stable. Labs reviewed his hemoglobin dropped 7.8. Platelets are low 38. Sodium is 1:30, low potassium 3.1 and magnesium 1.3 are being replaced per protocol. Patient still has expected surgical site abdominal wane. Suprapubic urinary catheter is in a Place as well as MARYCARMEN drain. Patient is receiving 1 unit of blood according to urology team He is still on cefazolin. He is getting bladder irrigation 03/10/2021 Patient is seen this morning in follow-up and remains hemodynamically stable and continues with bladder irrigation indwelling Tao catheter for recent TURP and is being closely followed by urology. Patient denies any chest pain, shortness of breath, or palpitations. Patient is tolerating diet with no reports of nausea or vomiting noted. Patient is afebrile. Patient remains on IV antibiotics for possible urinary tract infection. Patient does have indwelling Tao catheter along with suprapubic catheter. nephrology also following for acute kidney injury and hyponatremia. 03/11/2021 Patient is evaluated this morning and has had tao and MARYCARMEN drain removed. Urology plans on discharging today. Nephrology following and awaiting repeat am labs to assess potassium and sodium levels. Patient states he wants to go home. No acute overnight issues noted. Hemoglobin is 9 today. 03/12/2021 Patient is seen today with hematology/oncology consult placed for thrombocytopenia as platelets are 22 today. Further work-up for Cancer progre ssion and DIC in progress. Patient to receive platelets infusion. Patient is now having fevers and will add blood cultures and consider antibiotics. patient was on cefazolin and discontinued as it may be a contributing factor to the thrombocytopenia. CT abd and mri brain ordered. hemoglobin stable. Patient is anxious to go home. 03/13/2021 Patient is seen in follow up this morning and is being closely monitored with urology and oncology following. Newly confirmed prostate Ca. Further work-up be ing done by oncology and CT shows multiple pulmonary nodules and pulmonary being consulted for bronch with biopsy. MRI of the brain was ordered although unable to perform as patient wears a tether on his ankle. Patient asking why brain imaging is ordered and discussed with the patient and family at the bedside about evaluating for any lesions noted in the brain. Patient continues to ask when he will be able to go home. Hemoglobin stable and platelets slightly improved. Repeat UA ordered as well. 03/14/2021 Patient is currently lying in bed comfortably. No evidence of blood-tinged urine. Denied any complaints of abdominal pain. No nausea vomiting or diarrhea. Hemoglobin is stable. No chest pain or shortness breath. Patient has been afebrile. Laboratory showed WBC 3.6 hemoglobin 8.7 and platelets 32 Urology is on board. Patient is status post TURBT on 03/04/2021. Pathology showed [place] 8 prostate cancer. Hematology oncology is on board. 03/15/2021 Patient is currently resting in bed. Awake alert and oriented. No complaints of chest pain. No complaints of abdominal pain. Blood in the urine is noted again. Hemoglobin is fairly stable. Hematology oncology is following due to newly diagnosed prostate cancer. CT chest showed multiple pulmonary nodules. MRI of the brain could not be done due to ankle brace. Laboratory data showed WBC 3.6 hemoglobin 8.1 platelets 36,000. Oncology and urology is on board. 03/16/2021 Patient is seen in follow up today with multiple medical consultations following including oncology, urology, nephrology, and pulmonary. Unsure if pulmonary was re-consulted for possible lung biopsy. Patient hemoglobin stable at 7.5 and platelets are 35. Patient is being started on Lupron and Casodex by urology. Review of systems: Constitutional: No reports of fatigue, fever, or chills Cardiovascular: No reports of chest pain or palpitations Respiratory: No reports of shortness of breath or cough GI: No reports of nausea, vomiting, or diarrhea : No reports of dysuria or retention Neurovascular: No reports of weakness or numbness All medications have been reviewed Active Medications Acetaminophen (Acetaminophen Tab 325 Mg Tab) 650 mg PO Q4HR PRN PRN Reason: Fever and/ or MILD Pain Last Admin: 03/12/21 06:03 Dose: 650 mg Documented by: Hydrocodone Bitart/Acetaminophen (Hydrocodone/Apap 5-325mg 1 Each Tab) 1 each PO Q4HR PRN PRN Reason: moderate Pain Last Admin: 03/16/21 22:11 Dose: 1 each Documented by: Belladonna Alkaloids/Opium (Belladonna-Opium 16.2-60 Mg 1 Each Supp) 1 each RECTAL Q6HR PRN PRN Reason: Spasms Stop: 04/03/21 09:28 Bicalutamide (Bicalutamide 50 Mg Tab) 150 mg PO DAILY@1200 [facility] Last Admin: 03/16/21 13:27 Dose: 150 mg Documented by: Docusate Sodium (Docusate 100 Mg Cap) 100 mg PO BID [facility] Last Admin: 03/16/21 19:43 Dose: 100 mg Documented by: Ferrous Sulfate (Ferrous Sulfate 325 Mg Tab) 325 mg PO BID-W/MEALS [facility] Last Admin: 03/16/21 17:52 Dose: 325 mg Documented by: Hydromorphone HCl (Hydromorphone 1 Mg/Ml 1 Ml Syringe) 1 mg IVP Q2HR PRN PRN Reason: SEVERE Pain Last Admin: 03/15/21 09:03 Dose: 1 mg Documented by: Sodium Chloride (Saline 0.9% Irrigation) 3,000 mls @ 3,000 mls/hr IRRIGATION CONTINUOUS [facility] Last Admin: 03/16/21 17:46 Dose: Not Given Documented by: Leuprolide Acetate (Leuprolide Acet 7.5 Mg Syringekit) 7.5 mg IM ONCE ONE Stop: 03/17/21 14:31 Lidocaine HCl (Lidocaine 1% (10mg/Ml) For Iv Start) 0.1 ml INTRADERMA PER P ROTOCOL PRN PRN Reason: IV Start Stop: 04/03/21 05:53 Last Admin: 03/04/21 07:04 Dose: 0.1 ml Documented by: Miscellaneous Information (Magnesium Replacement Protocol 1 Each Misc) 1 each MISCELLANE DAILY PRN; Protocol PRN Reason: Per Protocol Miscellaneous Information (Potassium Replacement Protocol 1 Each Misc) 1 each MISCELLANE DAILY PRN; Protocol PRN Reason: Per Protocol Ondansetron HCl (Ondansetron 4 Mg/2 Ml Vial) 4 mg IVP Q6HR PRN PRN Reason: Nausea Last Admin: 03/07/21 15:21 Dose: 4 mg Documented by: Oxybutynin Chloride (Oxybutynin 10 Mg Tab.Er.24) 10 mg PO DAILY [facility] Last Admin: 03/16/21 08:16 Dose: 10 mg Documented by: Pantoprazole Sodium (Pantoprazole 40 Mg Tablet) 40 mg PO -BRKFST [facility] Last Admin: 03/16/21 08:16 Dose: 40 mg Documented by: Tamsulosin HCl (Tamsulosin 0.4 Mg Cap.Er.24h) 0.4 mg PO DAILY [facility] Stop: 04/04/21 09:01 Last Admin: 03/16/21 08:16 Dose: 0.4 mg Documented by: Physical exam: GENERAL: The patient is alert and oriented x3, not in any acute distress. Well developed, well nourished. HEENT: Pupils are round and equally reacting to light. EOMI. No scleral icterus. No conjunctival pallor. Normocephalic, atraumatic. No pharyngeal erythema. No thyromegaly. CARDIOVASCULAR: S1 and S2 present. No murmurs, rubs, or gallops. PULMONARY: Chest is clear to auscultation, no wheezing or crackles. ABDOMEN: Soft, nontender, nondistended, normoactive bowel sounds. No palpable organomegaly. MUSCULOSKELETAL: No joint swelling or deformity. EXTREMITIES: No cyanosis, clubbing, or pedal edema. NEUROLOGICAL: Gross neurological examination did not reveal any focal deficits. SKIN: No rashes. 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 Patient admitted under Urology status post TURP . Nephrology following as well and oncology and extensive work-up in progress. Biopsy confirmed prostate cancer. Possible Pulmonary consult for bronch and lung biopsy as CT chest revealed multiple pulmonary nodules. Hemoglobin is 7.5 today and platelets are 35. We will continue to follow during hospitalization. Thank you for this consultation. Prognosis is guarded. Objective - Vital Signs Vital signs: Vital Signs Temp 98.2 F 03/16/21 05:00 Pulse 108 H 03/16/21 05:00 Resp 16 03/16/21 05:00 BP 117/77 03/16/21 05:00 Pulse Ox 97 03/16/21 05:00 Intake & Output 03/15/21 03/16/21 03/16/21 18:59 06:59 18:59 Intake Total 360 Output Total 2700 600 Balance -2340 -600 Intake: Oral 360 Output: Urine 2700 600 Other: Voiding Method Indwelling Catheter Indwelling Catheter - Labs CBC & Chem 7: 03/16/21 10:56 03/13/21 05:49 Labs: Abnormal Lab Results - Last 24 Hours (Table) 03/14/21 03/15/21 03/15/21 Range/Units 07:11 11:34 23:44 WBC 3.6 L 3.6 L (3.8-10.6) k/uL RBC 2.61 L 2.38 L (4.30-5.90) m/uL Hgb 8.2 L 7.4 L (13.0-17.5) gm/dL Hct 23.2 L 21.0 L (39.0-53.0) % Plt Count 36 L 33 L (150-450) k/uL Neutrophils # (Manual) 1.20 L (1.3-7.7) k/uL Metamyelocytes # (Man) 0.11 H 0.11 H (0) k/uL Myelocytes # (Manual) 0.14 H 0.11 H (0) k/uL Nucleated RBCs 6 H 8 H (0-0) /100 WBC Pathologist Review See comment A Microbiology - Last 24 Hours (Table) 03/12/21 21:17 Blood Culture - Preliminary Blood No Growth after 72 hours 03/12/21 21:17 Blood Culture - Preliminary Blood No Growth after 72 hours
[2021-03-17] MEDS: HYDROcodone/APAP 5-325MG 1 EACH TAB PO PRN ×2 (03:46→16:35)
[2021-03-17 05:59] LABS: African American GFR (CKD) >90 (>60 ml/min/1.73 sqM); Anion Gap 3 mmol/L; Blood Urea Nitrogen 21 mg/dL (9-20); Calcium 8.1 mg/dL (8.4-10.2); Carbon Dioxide 29 mmol/L (22-30); Chloride 96 mmol/L (98-107); Glucose 110 mg/dL (74-99); Non-African American GFR(CKD) 81 (>60 ml/min/1.73 sqM); Sodium 128 mmol/L (137-145)
[2021-03-17 06:29] LABS: HCT 20.2 % (39.0-53.0); HGB 7.2 gm/dL (13.0-17.5); Hyperchromasia Slight; MCH 31.9 pg (25.0-35.0); MCHC 35.8 g/dL (31.0-37.0); Mean Platelet Volume 8.4; Poikilocytosis Slight; RBC 2.27 m/uL (4.30-5.90); RDW 15.4 % (11.5-15.5)
[2021-03-17 06:44] LABS: Platelet Count 36 k/uL (150-450)
[2021-03-17] MEDS: TAMSULOSIN 0.4 MG CAP.ER.24H PO SCH (08:37)
[2021-03-17] MEDS: PANTOPRAZOLE 40 MG TABLET PO SCH (08:37)
[2021-03-17] MEDS: DOCUSATE 100 MG CAP PO SCH (08:37)
[2021-03-17] MEDS: FERROUS SULFATE 325 MG TAB PO SCH (08:37)
[2021-03-17] MEDS: OXYBUTYNIN 10 MG TAB.ER.24 PO SCH (08:37)
--- NOTE | 2021-03-17 12:54 | P.PN ---
Progress Note - Text Progress Note Date: 03/17/21 The patient has no complaints. His Jurado catheter is draining bloody urine, without clots. The catheter has not required irrigation in the past 24 hours. Hemoglobin level today is 7.2. He will be transfused 1 unit of packed RBCs. I am hopeful that he can be discharged home within the next 24 hours. Awaiting final recommendations from HemOnc. He will follow up with Dr. Gill later this week to be started on Lupron. He will receive Lupron during this hospitalization if he remains hospitalized.
[2021-03-17] MEDS: BICALUTAMIDE 50 MG TAB PO SCH (13:33)
[2021-03-17 13:42] LABS: Band Neutrophils % 9 %; Metamyelocytes # (M) 0.08 k/uL (0); Metamyelocytes % 2 %; Myelocytes # (M) 0.04 k/uL (0); Myelocytes % 1 %; Neutrophils % (M) 35 %; Promyelocytes # (M) 0.04 k/uL (0); Promyelocytes % 1 %
[2021-03-17 13:43] LABS: Blast Cells # (M) 0.08 k/uL (0); Lymphocytes # (M) 1.37 k/uL (1.0-4.8); Monocytes # (M) 0.53 k/uL (0-1.0); Nucleated Red Blood Cells 5 /100 WBC (0-0); Total Cells Counted 100; WBC 3.8 k/uL (3.8-10.6)
[2021-03-17] MEDS ORDERED: LEUPROLIDE ACET 7.5 MG SYRINGEKIT IM ONE (14:30)
--- NOTE | 2021-03-17 16:11 | P.PN ---
Subjective Progress Note Date: 03/17/21 This is a pleasant 55 years old male with past medical history of osteoarthritis and prostate hypertrophy. 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 After the procedure patient brought to the ICU for hyponatremia sodium 121-123 since admission, creatinine was elevated 11-10 since admission. Currently his creatinine this morning is normal at 0.89 and sodium improved up to 131. He was treated with normal saline hydration, also Tao catheter is in place with catheter irrigation Also postprocedure his hemoglobin dropped to 5.2 on 03/05, he transfused 2 units of blood and his hemoglobin improved to 8.0 Today patient lying in bed looks lethargic but is awake. He is in distress due to pain at the Tao site. Dressing is in place. He is undergoing bladder irrigation. Also he is getting blood transfusion this morning He denies chest pain or dyspnea. No headache or weakness Vitas looks stable and patient is afebrile. Labs reviewed, he had mild leukocytosis on admission 11.3, currently 6.1, hemoglobin dropped from 8.0 down to 7.3 today, initially was 5.2 and received 2 units of blood. Also patient with thrombocytopenia platelets improved today to 70 K. Sodium 131. Creatinine normal 0.8. Coronavirus nondetected. 03/08/2021 Patient was started yesterday today is more awake and alert however is still tired and is resting in bed, patient is asking if he can be moved to the chair later on during the day. Patient is eating only limited amount of fluid. Hemodynamically stable. Labs reviewed his hemoglobin dropped 7.8. Platelets are low 38. Sodium is 1:30, low potassium 3.1 and magnesium 1.3 are being replaced per protocol. Patient still has expected surgical site abdominal wane. Suprapubic urinary catheter is in a Place as well as MARYCARMEN drain. Patient is receiving 1 unit of blood according to urology team He is still on cefazolin. He is getting bladder irrigation 03/10/2021 Patient is seen this morning in follow-up and remains hemodynamically stable and continues with bladder irrigation indwelling Tao catheter for recent TURP and is being closely followed by urology. Patient denies any chest pain, shortness of breath, or palpitations. Patient is tolerating diet with no reports of nausea or vomiting noted. Patient is afebrile. Patient remains on IV antibiotics for possible urinary tract infection. Patient does have indwelling Tao catheter along with suprapubic catheter. nephrology also following for acute kidney injury and hyponatremia. 03/11/2021 Patient is evaluated this morning and has had tao and MARYCARMEN drain removed. Urology plans on discharging today. Nephrology following and awaiting repeat am labs to assess potassium and sodium levels. Patient states he wants to go home. No acute overnight issues noted. Hemoglobin is 9 today. 03/12/2021 Patient is seen today with hematology/oncology consult placed for thrombocytopenia as platelets are 22 today. Further work-up for Cancer progre ssion and DIC in progress. Patient to receive platelets infusion. Patient is now having fevers and will add blood cultures and consider antibiotics. patient was on cefazolin and discontinued as it may be a contributing factor to the thrombocytopenia. CT abd and mri brain ordered. hemoglobin stable. Patient is anxious to go home. 03/13/2021 Patient is seen in follow up this morning and is being closely monitored with urology and oncology following. Newly confirmed prostate Ca. Further work-up be ing done by oncology and CT shows multiple pulmonary nodules and pulmonary being consulted for bronch with biopsy. MRI of the brain was ordered although unable to perform as patient wears a tether on his ankle. Patient asking why brain imaging is ordered and discussed with the patient and family at the bedside about evaluating for any lesions noted in the brain. Patient continues to ask when he will be able to go home. Hemoglobin stable and platelets slightly improved. Repeat UA ordered as well. 03/14/2021 Patient is currently lying in bed comfortably. No evidence of blood-tinged urine. Denied any complaints of abdominal pain. No nausea vomiting or diarrhea. Hemoglobin is stable. No chest pain or shortness breath. Patient has been afebrile. Laboratory showed WBC 3.6 hemoglobin 8.7 and platelets 32 Urology is on board. Patient is status post TURBT on 03/04/2021. Pathology showed [place] 8 prostate cancer. Hematology oncology is on board. 03/15/2021 Patient is currently resting in bed. Awake alert and oriented. No complaints of chest pain. No complaints of abdominal pain. Blood in the urine is noted again. Hemoglobin is fairly stable. Hematology oncology is following due to newly diagnosed prostate cancer. CT chest showed multiple pulmonary nodules. MRI of the brain could not be done due to ankle brace. Laboratory data showed WBC 3.6 hemoglobin 8.1 platelets 36,000. Oncology and urology is on board. 03/16/2021 Patient is seen in follow up today with multiple medical consultations following including oncology, urology, nephrology, and pulmonary. Unsure if pulmonary was re-consulted for possible lung biopsy. Patient hemoglobin stable at 7.5 and platelets are 35. Patient is being started on Lupron and Casodex by urology. 03/17/2021 Patient is seen in follow-up this morning and oncology along with urology following closely. Patient's hemoglobin was 7.2 this morning and will transfuse a unit of PRBCs. Sodium is 128 with a potassium of 4.0 and creatinine is 1.04. Encouraged increase oral intake. Patient was given Lupron and started on Casodex. Patient to follow-up with pulmonary in the outpatient setting for possible lung biopsy as there are multiple lung nodules noted on CT of the chest. Oncology is following and patient will follow with them in the outpatient setting as well. Mri of the brain to assess for any disease progression was ordered although unable to do as patient wears a tether it is not MRI safe and CT of the brain is being discussed her oncology recommendations. Patient to continue with indwelling Tao catheter per urology recommendations. Review of systems: Constitutional: No reports of fatigue, fever, or chills Cardiovascular: No reports of chest pain or palpitations Respiratory: No reports of shortness of breath or cough GI: No reports of nausea, vomiting, or diarrhea : No reports of dysuria or retention Neurovascular: No reports of weakness or numbness All medications have been reviewed Active Medications Acetaminophen (Acetaminophen Tab 325 Mg Tab) 650 mg PO Q4HR PRN PRN Reason: Fever and/ or MILD Pain Last Admin: 03/12/21 06:03 Dose: 650 mg Documented by: Hydrocodone Bitart/Acetaminophen (Hydrocodone/Apap 5-325mg 1 Each Tab) 1 each PO Q4HR PRN PRN Reason: moderate Pain Last Admin: 03/17/21 03:46 Dose: 1 each Documented by: Belladonna Alkaloids/Opium (Belladonna-Opium 16.2-60 Mg 1 Each Supp) 1 each RECTAL Q6HR PRN PRN Reason: Spasms Stop: 04/03/21 09:28 Bicalutamide (Bicalutamide 50 Mg Tab) 150 mg PO DAILY@1200 PENDING SALE TO [facility] Last Admin: 03/17/21 13:33 Dose: 150 mg Documented by: Docusate Sodium (Docusate 100 Mg Cap) 100 mg PO BID PENDING SALE TO [facility] Last Admin: 03/17/21 08:37 Dose: 100 mg Documented by: Ferrous Sulfate (Ferrous Sulfate 325 Mg Tab) 325 mg PO BID-W/MEALS PENDING SALE TO [facility] Last Admin: 03/17/21 08:37 Dose: 325 mg Documented by: Hydromorphone HCl (Hydromorphone 1 Mg/Ml 1 Ml Syringe) 1 mg IVP Q2HR PRN PRN Reason: SEVERE Pain Last Admin: 03/15/21 09:03 Dose: 1 mg Documented by: Sodium Chloride (Saline 0.9% Irrigation) 3,000 mls @ 3,000 mls/hr IRRIGATION CONTINUOUS PENDING SALE TO [facility] Last Admin: 03/16/21 17:46 Dose: Not Given Documented by: Lidocaine HCl (Lidocaine 1% (10mg/Ml) For Iv Start) 0.1 ml INTRADERMA PER PROTOCOL PRN PRN Reason: IV Start Stop: 04/03/21 05:53 Last Admin: 03/04/21 07:04 Dose: 0.1 ml Documented by: Miscellaneous Information (Magnesium Replacement Protocol 1 Each Misc) 1 each MISCELLANE DAILY PRN; Protocol PRN Reason: Per Protocol Miscellaneous Information (Potassium Replacement Protocol 1 Each Misc) 1 each MISCELLANE DAILY PRN; Protocol PRN Reason: Per Protocol Ondansetron HCl (Ondansetron 4 Mg/2 Ml Vial) 4 mg IVP Q6HR PRN PRN Reason: Nausea Last Admin: 03/07/21 15:21 Dose: 4 mg Documented by: Oxybutynin Chloride (Oxybutynin 10 Mg Tab.Er.24) 10 mg PO DAILY PENDING SALE TO [facility] Last Admin: 03/17/21 08:37 Dose: 10 mg Documented by: Pantoprazole Sodium (Pantoprazole 40 Mg Tablet) 40 mg PO -BRKFST PENDING SALE TO [facility] Last Admin: 03/17/21 08:37 Dose: 40 mg Documented by: Tamsulosin HCl (Tamsulosin 0.4 Mg Cap.Er.24h) 0.4 mg PO DAILY PENDING SALE TO [facility] Stop: 04/04/21 09:01 Last Admin: 03/17/21 08:37 Dose: 0.4 mg Documented by: Physical exam: GENERAL: The patient is alert and oriented x3, not in any acute distress. Well developed, well nourished. HEENT: Pupils are round and equally reacting to light. EOMI. No scleral icterus. No conjunctival pallor. Normocephalic, atraumatic. No pharyngeal erythema. No thyromegaly. CARDIOVASCULAR: S1 and S2 present. No murmurs, rubs, or gallops. PULMONARY: Chest is clear to auscultation, no wheezing or crackles. ABDOMEN: Soft, nontender, nondistended, normoactive bowel sounds. No palpable organomegaly. MUSCULOSKELETAL: No joint swelling or deformity. EXTREMITIES: No cyanosis, clubbing, or pedal edema. NEUROLOGICAL: Gross neurological examination did not reveal any focal deficits. SKIN: No rashes. 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 Patient admitted under Urology status post TURP . oncology following and extensive work-up in progress. Biopsy confirmed prostate cancer. Possible outpatient follow-up with Pulmonary for for lung biopsy as CT chest revealed multiple pulmonary nodules. Hemoglobin is 7.2 today and platelets are 36. One unit of PRBC ordered. Encouraged oral intake especially protein. We will continue to follow during hospitalization. Thank you for this consultation. Prognosis is guarded. Objective - Vital Signs Vital signs: Vital Signs Temp 98.1 F 03/17/21 12:10 Pulse 100 03/17/21 12:10 Resp 17 03/17/21 12:10 BP 109/71 03/17/21 12:10 Pulse Ox 98 03/17/21 12:10 Intake & Output 03/16/21 03/17/21 03/17/21 18:59 06:59 18:59 Intake Total 900 750 Output Total 700 800 Balance 200 -50 Weight 58.7 kg Intake: Oral 900 750 Output: Urine 700 800 Other: Voiding Method Indwelling Catheter Indwelling Catheter Indwelling Catheter - Labs CBC & Chem 7: 03/17/21 05:04 03/17/21 05:04 Labs: Abnormal Lab Results - Last 24 Hours (Table) 03/16/21 03/17/21 03/17/21 Range/Units 10:56 05:04 05:04 RBC 2.27 L (4.30-5.90) m/uL Hgb 7.2 L (13.0-17.5) gm/dL Hct 20.2 L (39.0-53.0) % Plt Count 35 L 36 L (150-450) k/uL Blast Cells % 1 H* 2 H* % Metamyelocytes # (Man) 0.11 H 0.08 H (0) k/uL Myelocytes # (Manual) 0.04 H (0) k/uL Promyelocytes # (Man) 0.04 H (0) k/uL Blast Cells # (Man) 0.04 H 0.08 H (0) k/uL Nucleated RBCs 3 H 5 H (0-0) /100 WBC Sodium 128 L (137-145) mmol/L Chloride 96 L (98-107) mmol/L BUN 21 H (9-20) mg/dL Glucose 110 H (74-99) mg/dL Calcium 8.1 L (8.4-10.2) mg/dL Crossmatch 03/17/21 Range/Units 09:19 RBC (4.30-5.90) m/uL Hgb (13.0-17.5) gm/dL Hct (39.0-53.0) % Plt Count (150-450) k/uL Blast Cells % % Metamyelocytes # (Man) (0) k/uL Myelocytes # (Manual) (0) k/uL Promyelocytes # (Man) (0) k/uL Blast Cells # (Man) (0) k/uL Nucleated RBCs (0-0) /100 WBC Sodium (137-145) mmol/L Chloride (98-107) mmol/L BUN (9-20) mg/dL Glucose (74-99) mg/dL Calcium (8.4-10.2) mg/dL Crossmatch See Detail Microbiology - Last 24 Hours (Table) 12/02/21 21:17 Blood Culture - Preliminary Blood No Growth after 96 hours 03/12/21 21:17 Blood Culture - Preliminary Blood No Growth after 96 hours
--- NOTE | 2021-03-17 16:29 | P.PN ---
Subjective Progress Note Date: 03/17/21 Principal diagnosis: New prostate cancer Unable to have MRI due to probation ankle tracker. CT brain ordered. Dr. Salgado to further cordinate care with pulmonology, Cytopenias unexplained and may require bone marrow biopsy outpatient, will monitor. Objective - Vital Signs Vital signs: Vital Signs Temp 98.2 F 03/17/21 14:20 Pulse 98 03/17/21 15:16 Resp 17 03/17/21 15:16 BP 108/71 03/17/21 15:16 Pulse Ox 98 03/17/21 15:16 Intake & Output 03/16/21 03/17/21 03/17/21 18:59 06:59 18:59 Intake Total 900 750 0 Output Total 909 141 9844 Balance Weight 58.7 kg Intake: Oral 900 750 Blood Product 0 Rc As-1 Unit 0 [id number] Output: Urine 294 238 2967 Other: Voiding Method Indwelling Catheter Indwelling Catheter Indwelling Catheter # Bowel Movements 2 - Exam Alert NAD Poor dentition Lung: Rhonchi Abdomen: Tender [place] Bracelet on ankle - Labs CBC & Chem 7: 03/17/21 05:04 03/17/21 05:04 Labs: Abnormal Lab Results - Last 24 Hours (Table) 03/17/21 03/17/21 03/17/21 Range/Units 05:04 05:04 09:19 RBC 2.27 L (4.30-5.90) m/uL Hgb 7.2 L (13.0-17.5) gm/dL Hct 20.2 L (39.0-53.0) % Plt Count 36 L (150-450) k/uL Blast Cells % 2 H* % Metamyelocytes # (Man) 0.08 H (0) k/uL Myelocytes # (Manual) 0.04 H (0) k/uL Promyelocytes # (Man) 0.04 H (0) k/uL Blast Cells # (Man) 0.08 H (0) k/uL Nucleated RBCs 5 H (0-0) /100 WBC Sodium 128 L (137-145) mmol/L Chloride 96 L (98-107) mmol/L BUN 21 H (9-20) mg/dL Glucose 110 H (74-99) mg/dL Calcium 8.1 L (8.4-10.2) mg/dL Crossmatch See Detail Microbiology - Last 24 Hours (Table) 03/12/21 21:17 Blood Culture - Preliminary Blood No Growth after 96 hours 03/12/21 21:17 Blood Culture - Preliminary Blood No Growth after 96 hours Assessment and Plan (1) Prostate CA Current Visit: Yes Status: Acute Code(s): C61 - MALIGNANT NEOPLASM OF PROSTATE SNOMED Code(s): 939338464 (2) Thrombocytopenia Current Visit: Yes Status: Acute Code(s): D69.6 - THROMBOCYTOPENIA, UNSPE CIFIED SNOMED Code(s): 118318717 (3) Hyponatremia Current Visit: Yes Status: Acute Code(s): E87.1 - HYPO-OSMOLALITY AND HYPONATREMIA SNOMED Code(s): 07478589 (4) Hematuria Current Visit: No Status: Inactive Code(s): R31.9 - HEMATURIA, UNSPECIFIED SNOMED Code(s): 93503950 (5) Normocytic anemia due to blood loss Current Visit: Yes Status: Acute Code(s): D50.0 - IRON DEFICIENCY ANEMIA SECONDARY TO BLOOD LOSS (CHRONIC) SNOMED Code(s): 701720717 (6) Febrile Current Visit: Yes Status: Acute Code(s): R50.9 - FEVER, UNSPECIFIED SNOMED Code(s): 500279058 Plan: Assessment and Recommendations: Thrombocytopenia: -Transfuse platelets with active bleeding and hematuria - Work-up ordered New Diagnosis Prostate Cancer: - Invasion into bladder - Bone scan with Calvaium Met, hyponatremia - Further staging CT C/A/P and PE Protocol Revealing multiple pulmonary nodules - further assess with biopsy, Dr. Salgado has spoken to pulmonology regarding this. - Brain imaging - Elevated PSA Nomocytic Anemia: - Likely secondary to blood loss Hematuria - Anemia work-up Hyponatremia: - Improved Fever and recent Staph infection in urine - Repeat Urinalysis and cultures to assess for possible discontinue of abx with thrombocytopenia - Blood Cultures Await pulm re-evaluation for tissue biopsy of lung nodules Lupron and casodex initiated by urology Once biopsy of lung performed if not metastatic then patient will continue with Urology for care of prostate cancer, if metastatic pucture will follow for chemotherapy options with Dr. Salgado Will need two week follow-up with [employer] in our office cbc check and possible scheduled BM biopsy CT brain since Unable to move forward with MRI Physician Attest I have completed the full history and physical and agree with above dictation, dictated as a scribe.
--- NOTE | 2021-03-17 16:37 | P.DS ---
Providers Date of admission: 03/04/21 09:42 Expected date of discharge: 03/17/21 Attending physician: Basil Gill MD Consults: 03/04/21 09:28 Consult Physician Stat Consulting Provider: Berna Shafer Consult Reason/Comments: renal failure Do you want consulting provider notified?: Yes 03/04/21 10:30 Consult Physician Stat Consulting Provider: Papo Jalloh Consult Reason/Comments: ICU Management Do you want consulting provider notified?: Already Contacted 03/06/21 16:55 Consult Physician Routine Consulting Provider: Sayda Carter Consult Reason/Comments: Medical management Do you want consulting provider notified?: Yes 03/11/21 13:53 Consult Physician Urgent Consulting Provider: rPince Salgado Consult Reason/Comments: low plt's Do you want consulting provider notified?: Yes Primary care physician: Lizzy Del Valle - Discharge Diagnosis(es) (1) Hematuria Current Visit: No Status: Inactive Assessment: KOFI DICKERSON RUN DARRICK TO FOLLOW FOR HOME CARE. IT IS VERY IMPORTANT TO KEEP THE APPOINTMENT WITH DR. LIZZY KIRBY [facility] WILL START SERVICES FOLLOWING VISIT WITH DR. GREEN Please plan to arrive at this appointment at least 15 minutes early to do paperwork. A mask must be worn. Please come alone. Per their office staff. This is a 55-year-old male with history of bladder, prostate tumor. He underwent a combined TURP/TURBT on March 04, please see op note dated March 04 for surgery details. Of note patient was on clot retention the time of surgery. Greater than 3 L of urine was drained from the bladder. Intraoperative labs showed that the patient was in renal failure, he was admitted to the ICU postoperatively. Patient developed significant hematuria, hemoglobin was down to 5.4. He was taken back to the OR on March 06, there was evidence of anterior bladder perforation. He underwent a explaratory laparotomy with bladder repair. Please see op note dated March 06 for surgery detail. Patient was started on CBI postoperatively. He continued to do well in the postoperative period. His CBI was discontinued on March 10. His MARYCARMEN drain was removed on March 11. Pathology showed evidence of prostate cancer, and he was started on Casodex on 03/15/2021. He is discharged home with the Jurado catheter and will follow up with Dr. Gill for a Lupron injection. He will require a cystogram prior to Jurado catheter removal. He will follow up with Dr. Thao to undergo bronchoscopy to evaluate adenopathy within the chest. He will follow up with Dr. Salgado for possible bone marrow biopsy in view of his hematologic abnormalities. Patient Condition at Discharge: Good Plan - Discharge Summary Discharge Rx Participant: Yes New Discharge Prescriptions: New HYDROcodone/APAP 5-325MG [[place] 5-325] 1 tab PO Q6HR PRN 3 Days #12 tab PRN Reason: Pain Cephalexin [Keflex] 250 mg PO Q12HR 14 Days #28 cap Bicalutamide 50 mg PO DAILY #30 tablet No Action Ibuprofen 600 mg PO Q8H Naproxen [Naprosyn] 500 mg PO BID Tamsulosin [Flomax] 0.4 mg PO DAILY Discharge Medication List Ibuprofen 600 mg PO Q8H 02/27/21 [History] Naproxen [Naprosyn] 500 mg PO BID 02/27/21 [History] Tamsulosin [Flomax] 0.4 mg PO DAILY 02/27/21 [History] Cephalexin [Keflex] 250 mg PO Q12HR 14 Days #28 cap 03/11/21 [Rx] HYDROcodone/APAP 5-325MG [[place] 5-325] 1 tab PO Q6HR PRN 3 Days #12 tab 03/11/21 [Rx] Bicalutamide 50 mg PO DAILY #30 tablet 03/17/21 [Rx] Follow up Appointment(s)/Referral(s): [facility], [NON-STAFF] - 1-2 Days Lizzy Del Valle MD [Primary Care Provider] - 03/25/21 4:00 pm Basil Gill MD [STAFF PHYSICIAN] - 1-2 Days Activity/Diet/Wound Care/Special Instructions: Increase fluid intake No heavy lifting or straining Discharge home with Jurado catheter. Discharge Disposition: HOME SELF-CARE
[2021-03-17 16:40] VITALS: BP 105/70; PULSE 97; RESP 15; TEMP 97.8
--- NOTE | 2021-03-17 17:57 | CT ---
EXAMINATION TYPE: CT brain wo/w con DATE OF EXAM: 03/17/2021 COMPARISON: None HISTORY: mets CT DLP: 2452 mGycm Automated exposure control for dose reduction was used. CONTRAST: Performed without and with IV Contrast, patient injected with 100 mL of Isovue 300. Ventricles have fairly normal size. There is no mass effect nor midline shift. There is no evidence o f intracranial hemorrhage. There is high attenuation over the right parietal convexity measuring up t o 10 mm in thickness. This appears to be peripherally enhancing somewhatThis. Extends posteriorly int o the posterior right parietal lobe. There is right parietal scalp soft tissue swelling. This measure s up to 14 mm in thickness. The calvarium is intact. I see no bone focal bone destruction. There is m ild cerebral atrophy. IMPRESSION: High attenuation over the right temporal parietal convexity measuring up to 10 mm in thickness. There is also scalp adjacent soft tissue swelling. This could be acute subdural hemorrhage. Meningeal meta static disease not excluded. No evidence of intra-axial enhancing lesion. Right parietal scalp swelling could be scalp hematoma.
--- NOTE | 2021-03-19 11:46 | CDI ---
Documentation Clarification Form Date: 03/19/21 From: Radha Garg Admit Date: 03/04/2021 09:42:00 AM Patient Name: Pedrito Escoto Visit Number: [id number] Discharge Date: 03/17/2021 06:30:00 PM ATTENTION: The Clinical Documentation Specialists (CDI) and [facility] Coding Staff appreciate your assistance in clarifying documentation. Please respond to the clarification below the line at the bottom and electronically sign. The CDI & [facility] Coding staff will review the response and follow-up if needed. Please note: Queries are made part of the Legal Health Record. If you have any questions, please contact the author of this message via ITS. Dr. Muriel Mckeon, Moderate to severe protein calorie malnutrition is documented in your 03/14 & 03/18 PNs. Additional clarification regarding the severity of malnutrition is requested. History/Risk Factors: Prostate cancer with gross hematuria and bladder perforation 03/04-03/13 Clinical Indicators: Total Protein: 65, 5.1, 4.8, 5.0; Total Protein PEP: 4.7 (03/12); Albumin: 3.5, 2.6, 2.5, 2.6; Albumin PEP: 1.99 (03/12) Current BMI: 19.7 Insufficient energy intake: 48% consumed Loss of muscle mass: Moderate temporalis and pectoralis muscle wasting Supplements: Magic cups BID, high protein snack Please clarify the type of malnutrition, if known: [ ] Moderate Protein-Calorie Malnutrition [ ] Severe Protein-Calorie Malnutrition [ ] Malnutrition, unspecified [ ] Other condition, please specify [ ] Unable to Determine Severe Protein-Calorie Malnutrition MTDD
== END 2021-03-17 18:30 | disposition home health service (06) | DRG 713 ==
LOC: OR 06:09 → 2SICU 09:42 → 5NMEDONC 03-09 14:23
PROVIDERS: ADMIT Urology; ATTEND Urology
PROC: 0TBC8ZZ Excision of Bladder Neck, Via Natural or Artificial Opening Endoscopic (ICD-10-PCS; principal; 2021-03-04 07:30)
PROC: 0VB08ZZ Excision of Prostate, Via Natural or Artificial Opening Endoscopic (ICD-10-PCS; principal; 2021-03-04 07:30)
PROC: 0TCB8ZZ Extirpation of Matter from Bladder, Via Natural or Artificial Opening Endoscopic (ICD-10-PCS; principal; 2021-03-04 07:30)
PROC: BT101ZZ Fluoroscopy of Bladder using Low Osmolar Contrast (ICD-10-PCS; principal; 2021-03-04 07:30)
PROC: 30233N1 Transfusion of Nonautologous Red Blood Cells into Peripheral Vein, Percutaneous Approach (ICD-10-PCS; 2021-03-05)
PROC: 30233R1 Transfusion of Nonautologous Platelets into Peripheral Vein, Percutaneous Approach (ICD-10-PCS; 2021-03-06)
PROC: 0TCB8ZZ Extirpation of Matter from Bladder, Via Natural or Artificial Opening Endoscopic (ICD-10-PCS; 2021-03-06 17:39)
PROC: 0TQB0ZZ Repair Bladder, Open Approach (ICD-10-PCS; 2021-03-06 17:39)
PROC: 0T1B0ZD Bypass Bladder to Cutaneous, Open Approach (ICD-10-PCS; 2021-03-06 17:39)
DX: C61 Malignant neoplasm of prostate (principal); E43 Unspecified severe protein-calorie malnutrition; E87.1 Hypo-osmolality and hyponatremia; N17.9 Acute kidney failure, unspecified; D62 Acute posthemorrhagic anemia; N13.8 Other obstructive and reflux uropathy; D69.6 Thrombocytopenia, unspecified; Z68.1 Body mass index [BMI] 19.9 or less, adult; Z20.822 Contact with and (suspected) exposure to COVID-19; R31.0 Gross hematuria; N40.1 Benign prostatic hyperplasia with lower urinary tract symptoms; R33.8 Other retention of urine; N32.89 Other specified disorders of bladder; E87.6 Hypokalemia; R91.8 Other nonspecific abnormal finding of lung field; E87.5 Hyperkalemia; M19.90 Unspecified osteoarthritis, unspecified site; F17.210 Nicotine dependence, cigarettes, uncomplicated; Z71.6 Tobacco abuse counseling; Z79.1 Long term (current) use of non-steroidal anti-inflammatories (NSAID); Z71.3 Dietary counseling and surveillance; Z79.899 Other long term (current) drug therapy; Z88.5 Allergy status to narcotic agent
CPT/HCPCS: 70470; 71275; 74177; 78306; 80048; 80053; 80076; 81001; 82607; 82728; 82746; 82784; 83540; 83550; 83615; 83735; 83883; 83921; 84132; 84153; 84165; 84443; 85025; 85027; 85045; 85379; 85610; 85730; 86022; 86334; 86850; 86900; 86901; 86920; 87040; 87086; 87635; 88307; 88341; 88342

== ENCOUNTER → 2021-03-23 | Outpatient (CLI) | payer OTHER ==
--- NOTE | 2021-03-24 11:17 | FL ---
EXAMINATION: Adult voiding cystourethrogram. DATE: 03/23/2021 CLINICAL HISTORY: 55-year-old male R31.0, gross hematuria. Total fluoroscopy time: 2 minutes 43 seconds. Total images: 67. TECHNIQUE AND FINDINGS: The risks and benefits of the procedure were discussed with the patient who gave verbal consent. The patient had indwelling suprapubic and Jurado catheters. Retrograde instillation of a total volume of 200 mL Cystografin water-soluble contrast material into the bladder outlines the 2 inflated balloons. There is gradual distention of the bladder. Slight irregularity along the posterior bladder base cou ld reflect subtle urothelial lesion or abnormality extending from the prostate gland, best seen on th e lateral views during partial filling. No other filling defects seen along the dome or mid aspect of the bladder. No abnormal extravasation of contrast is seen. Slight trabeculated appearance is noted. Subsequently, the patient's bladder was emptied utilizing the Jurado catheter. Trace residual contras t remains in the bladder lumen. No convincing evidence for leak. No vesicoureteral reflux. IMPRESSION: 1. Indwelling suprapubic and Jurado catheters. A total of 200 mL of contrast instilled via the Jurado c atheter. 2. Slight mural-based irregularity along the posterior bladder base on the lateral views during parti al filling could reflect subtle urothelial lesion or abnormality extending from the prostate gland. C orrelate with urine cytology, PSA values, and direct visualization as indicated. 3. No convincing evidence for leak.
== END | disposition home or self-care (01) ==
LOC: RADFLMAIN 12:41
PROVIDERS: ATTEND Urology
DX: N32.89 Other specified disorders of bladder (principal)
CPT/HCPCS: 74455; Q9958

== ENCOUNTER 2021-04-14 11:26 | Day surgery (SDC) | payer OTHER ==
[2021-04-10 11:16] VITALS: BMI 15.9
[~2021-04-14 11:26] MED LIST changes: +ALBUTEROL NEB (CONC) 2.5 MG/0.5 ML INHALATION ONE; -DEXAMETHASONE SOD PHOSPHATE 4 MG/ML 1 ML VIAL IV ONE; -LIDOCAINE 1% (10MG/ML) FOR IV START INTRADERMA PRN; +LIDOCAINE 2% (PF) 20 MG/ML 5 ML VIAL INHALATION ONE; +LIDOCAINE VISCOUS 300 MG/15 ML CUP MUCOUS MEM ONE; -MIDAZOLAM 2 MG/2 ML VIAL IV PRN; -ONDANSETRON 4 MG/2 ML VIAL IVP ONE
[2021-04-14] MEDS ORDERED: ONDANSETRON 4 MG/2 ML VIAL ONE (13:04)
[2021-04-14] MEDS ORDERED: NEOSTIGMINE 1 MG/ML 10 ML VIAL ONE (13:04)
[2021-04-14] MEDS ORDERED: MIDAZOLAM 2 MG/2 ML VIAL ONE (13:04)
[2021-04-14] MEDS ORDERED: fentaNYL (PF) 50 MCG/ML 2 ML AMP ONE (13:04)
[2021-04-14] MEDS ORDERED: ROCURONIUM 10 MG/ML (5 ML VIAL) IV ONE (13:04)
[2021-04-14] MEDS ORDERED: PROPOFOL 10 MG/ML 20 ML VIAL IV ONE (13:04)
[2021-04-14] MEDS ORDERED: GLYCOPYRROLATE 0.2 MG/ML 2 ML VIAL ONE (13:04)
[2021-04-14] MEDS ORDERED: SUCCINYLCHOLINE CHLORIDE 100 MG/5 ML SYR IV ONE (13:04)
[2021-04-14] MEDS ORDERED: LIDOCAINE 1% INJ 10MG/ML (20 ML MDV) ONE (13:04)
--- NOTE | 2021-04-14 13:20 | CT ---
EXAMINATION TYPE: CT Chest xavier Bagley Protocol DATE OF EXAM: 04/14/2021 COMPARISON: CT chest 03/12/2021 HISTORY: SIVA lesion CT DLP: 627 mGycm Automated exposure control for dose reduction was used. Helical imaging through the chest for procedu re planning purposes FINDINGS: Spiculated left upper lobe mass is again noted as on prior CT, unchanged. Pleural-based soft tissue m ass at the level of the sternum anteriorly is also again noted in the right chest and is decreased in size measuring only 14 mm as compared to prior when it measured 2.4 cm, there is a left upper lobe s ubcentimeter nodule present at the same level. Scattered additional nodules are again noted bilateral ly some of which are along the major fissure on the right, decreased in size. There is no pleural or pericardial effusion, effusions or resolved. Emphysematous changes are present. Subcarinal adenopathy is improved, hilar adenopathy, improved. Coronary artery calcifications are present. Destructive left seventh rib lesion is again noted, quest ion sclerotic bone density IMPRESSION: THERE IS SOME INTERVAL IMPROVEMENT IN ADENOPATHY, NODULES DESCRIBED CONSISTENT WITH METASTATIC DIS EASE
--- NOTE | 2021-04-14 14:04 | P.PCN ---
Date of Procedure: 04/14/21 Preoperative Diagnosis: 1 multilevel bilateral pulmonary nodules, rule out metastatic disease 2 mediastinal lymphadenopathy, rule out metastatic disease 3 history of prostate cancer Postoperative Diagnosis: 1 bilateral multiple pulmonary nodules, 2 mediastinal lymphadenopathy 3 history of prostate cancer Procedure(s) Performed: 1 flexible bronchoscopy 2 navigational bronchoscopy and transbronchial biopsy of the left upper lobe 3 endobronchial ultrasound/EBUS with transbronchial needle aspirate of subcarinal station 7 lymph node and left hilar station 10 L lymph node Anesthesia: GETA Surgeon: Iban Thao Cook Helper Fruit #1: Silke Frederick Estimated Blood Loss (ml): 0 Pathology: other Condition: stable Disposition: same day Operative Findings: After obtaining the consent the patient was taken to the OR suite he was intubated and put on MV by anesthesia then the scope was advanced to the ET tube until the Trachea was seen and it was normal and then the mary ellen appears normal then the scope advanced to the left main and SIVA LB1-LB3 were seen and no endobronchial lesions were seen then the scope advanced to the lingula and the LB4 and LB5 were seen and no endobronchial lesions were seen the scope retracted and advanced to the left lower lobes LB6 to LB12 were seen one by one and no endobronchial lesions, then the scope was retracted back to the mary ellen and advanced to the Right main and RUL RB1 and RB2 and RB3 were seen one by one and no endobronchial lesions were seen the scope then retracted and advanced to the BI and RML RB4 and RB5 were seen and no endobronchial lesions were seen then it was retracted and advanced to the RLL RB6 to RB12 were seen one by one and no endobronchial lesions. Then EBUS was used and the lymph nodes were examined. Direct measurement of the mediastinal lymph nodes revealed a 2 cm station 7 lymph node and a 1.6 cm station 10 L lymph nodes. I performed transbronchial needle aspirate of station 7 and a total of 5 passes FNA without major bleeding station amd 10 L lymph nodes were a total of 4 passes were obtained. No major bleeding and the scope was removed Following that, navigational bronchoscopy was performed. Bronchoscope was introduced in the appropriate calibration was done using the main mary ellen and the secondary mary ellen on the left as reference points. Following that, bronchoscope was directed to the apical segment of the left upper lobe and on the navigational guidance transbronchial biopsies of the left upper lobe was done. A total of vasopressin. No endobronchial bleeding was encountered. Bronchoscope was removed and the patient was extubated and following that he was transferred recovery in stable condition.
[2021-04-14 14:23] VITALS: TEMP 98
[2021-04-14 15:14] VITALS: PULSE 90
--- NOTE | 2021-04-14 15:43 | XR ---
EXAMINATION TYPE: XR chest 1V DATE OF EXAM: 04/14/2021 COMPARISON: CT chest same date HISTORY: Postbiopsy TECHNIQUE: Single frontal view of the chest is obtained. FINDINGS: There is no evident pneumothorax or pleural effusion. Seventh rib lesion on the left is ag ain noted. No other significant interval change. IMPRESSION: No evident complication status post lung biopsy.
[2021-04-14 15:50] VITALS: BP 119/78; RESP 16
== END 2021-04-14 15:50 | disposition home or self-care (01) ==
LOC: ORWHC2ENDO 11:26
PROVIDERS: ATTEND Internal Medicine Critical Care Medicine
DX: C78.01 Secondary malignant neoplasm of right lung (principal); C61 Malignant neoplasm of prostate; I10 Essential (primary) hypertension; N40.0 Benign prostatic hyperplasia without lower urinary tract symptoms; M19.90 Unspecified osteoarthritis, unspecified site; Z79.899 Other long term (current) drug therapy; Z88.1 Allergy status to other antibiotic agents; Z88.5 Allergy status to narcotic agent
CPT/HCPCS: 88305; 88173; 88342; 88341; 71045; 71250; 31628; 31627; 31652; J2250; J2710; J2405; J2001; J3010; J0330; J2704; 31625

== ENCOUNTER 2021-07-31 02:17 | Emergency (ER) | payer OTHER ==
[2021-07-31 02:22] VITALS: TEMP 97.6
--- NOTE | 2021-07-31 03:05 | XR ---
EXAMINATION TYPE: XR KUB DATE OF EXAM: 07/31/2021 COMPARISON: NONE HISTORY: Abdominal pain TECHNIQUE: Single view upright FINDINGS: There is no same intestinal obstruction or pneumoperitoneum. Fecal pattern is normal. There is no evidence of a mass. There is extensive osteosclerosis in the bony structures. IMPRESSION: Nonacute abdomen. Osteoblastic changes consistent with metastatic disease and appear new compared to the abdomen CT scan of 03-31.
[2021-07-31 03:45] VITALS: RESP 18
[2021-07-31] MEDS ORDERED: MAGNESIUM CITRATE 296 ML BOTTLE PO ONE (04:43)
--- NOTE | 2021-07-31 04:43 | ED ---
Abdominal Pain HPI - General Chief Complaint: Abdominal Pain Stated Complaint: Abdominal pain, back pain Time Seen by Provider: 07/31/21 02:37 Source: patient, family Mode of arrival: wheelchair Limitations: no limitations - History of Present Illness MD Complaint: abdominal pain -: days(s) Location: diffuse Severity: severe Quality: cramping Consistency: intermittent Improves With: nothing Worsens With: nothing Associated Symptoms: constipation - Related Data Home Medications Medication Instructions Recorded Confirmed Cyclobenzaprine [Flexeril] 10 mg PO TID 04/10/21 04/14/21 Allergies Allergy/AdvReac Type Severity Reaction Status Date / Time tramadol [From Ultram] Allergy Mild Nausea Verified 04/10/21 11:06 Review of Systems ROS Statement: Those systems with pertinent positive or pertinent negative responses have been documented in the HPI. ROS Other: All systems not noted in ROS Statement are negative. Constitutional: Denies: fever, chills Respiratory: Denies: cough, dyspnea Cardiovascular: Denies: chest pain, palpitations Gastrointestinal: Reports: abdominal pain, constipation. Denies: nausea, vo miting, diarrhea Genitourinary: Denies: dysuria, hematuria Musculoskeletal: Denies: back pain Skin: Denies: rash Neurological: Denies: headache, weakness, numbness Past Medical History Past Medical History: Cancer, Hypertension, Osteoarthritis (OA), Prostate D isorder Additional Past Medical History / Comment(s): Prostate cancer, "spots on lungs", anemia, recent dizziness-using a walker, brain cancer History of Any Multi-Drug Resistant Organisms: None Reported Past Surgical History: Bladder Surgery, Orthopedic Surgery Additional Past Surgical History / Comment(s): rt Knee arthroscopy, 02/2021 biopsy of bladder and prostate then 2 days later had surgery to repair bladder, Past Anesthesia/Blood Transfusion Reactions: No Reported Reaction Past Psychological History: No Psychological Hx Reported Smoking Status: Current every day smoker Past Alcohol Use History: None Reported Past Drug Use History: None Reported - Past Family History Mother Family Medical History: No Reported History General Exam Limitations: no limitations General appearance: alert, in no apparent distress Head exam: Present: atraumatic, normocephalic Eye exam: Present: normal appearance. Absent: scleral icterus, conjunctival injection Neck exam: Present: normal inspection Respiratory exam: Present: normal lung sounds bilaterally. Absent: respiratory distress, wheezes, rales, rhonchi, stridor Cardiovascular Exam: Present: regular rate, normal rhythm, normal heart sounds. Absent: systolic murmur, diastolic murmur, rubs, gallop GI/Abdominal exam: Present: soft, hyperactive bowel sounds. Absent: distended, tenderness, guarding, rebound, rigid, pulsatile mass Extremities exam: Present: normal inspection, normal capillary refill. Absent: pedal edema, calf tenderness Back exam: Present: normal inspection. Absent: CVA tenderness (R), CVA tenderness (L) Neurological exam: Present: alert Skin exam: Present: warm, dry, intact, normal color. Absent: rash Course Vital Signs 07/31/21 07/31/21 07/31/21 02:17 03:30 05:11 Temperature 97.6 F Pulse Rate 108 H 105 H 98 Respiratory 24 18 18 Rate Blood Pressure 145/92 138/94 129/84 O2 Sat by Pulse 97 98 96 Oximetry Disposition Clinical Impression: Constipation Disposition: HOME SELF-CARE Condition: Good Instructions (If sedation given, give patient instructions): Constipation (ED) Is patient prescribed a controlled substance at d/c from ED?: No Referrals: Lizzy Del Valle MD [Primary Care Provider] - 1-2 days
[2021-07-31 05:12] VITALS: BP 129/84; PULSE 98
== END 2021-07-31 05:13 | disposition home or self-care (01) ==
LOC: EC 02:17
DX: K59.00 Constipation, unspecified (principal); I10 Essential (primary) hypertension; M19.90 Unspecified osteoarthritis, unspecified site; F17.200 Nicotine dependence, unspecified, uncomplicated; Z88.1 Allergy status to other antibiotic agents; Z85.46 Personal history of malignant neoplasm of prostate
CPT/HCPCS: 74018; 99284

== ENCOUNTER → 2021-08-05 | Outpatient (CLI) | payer OTHER | END | disposition home or self-care (01) | LOC: RADMRIMAIN 08:15 | PROVIDERS: ATTEND Internal Medicine Hematology & Oncology | DX: Z53.9 Procedure and treatment not carried out, unspecified reason (principal) ==

== ENCOUNTER 2021-08-06 15:46 | Emergency (ER) | payer OTHER ==
[2021-08-06] MEDS ORDERED: SODIUM CHLORIDE 0.9% 1,000 ML IV STA (18:05)
[2021-08-06] MEDS ORDERED: DEXAMETHASONE SOD PHOSPHATE 10 MG/ML 1 ML VIAL IVP STA (18:10)
--- NOTE | 2021-08-06 18:13 | ED ---
Headache HPI - General Chief Complaint: Headache Stated Complaint: Recheck/Dizziness Time Seen by Provider: 08/06/21 17:58 Source: RN notes reviewed Mode of arrival: ambulatory Limitations: no limitations - History of Present Illness Initial Comments: This is a pleasant 56-year-old male with history of prostate cancer and continued cigarette smoking. Patient also has metastases to the brain from the cancer. Patient had a screening CAT scan done today and was sent here due to progression of the disease. Patient actually denying any headache at this time. However he states that he has had increased dizziness which has been progressive over the last several weeks. Patient states that the dizziness becomes so bad that sometimes he does fall. Most recently 3 days ago. He denies any acute changes to vision or hearing. No slurred speech. No numbness or tingling. No current vertigo symptoms. Patient states he does have some bulging of the right eye which they relate to the cancer. Patient currently on oral chemotherapy. Patient sees Dr. Salgado. No headache, no fever or chills, no changes in vision or hearing, no sore throat or difficulty with speech, no neck pain, no chest pain or shortness of breath, no abdominal pain, no nausea or vomiting, no changes in urination or bowel movements, no numbness or tingling, no extremity pain, no skin rashes or lesions. MD Complaint: headache - Related Data Home Medications Medication Instructions Recorded Confirmed Cyclobenzaprine [Flexeril] 10 mg PO TID 04/10/21 04/14/21 Allergies Allergy/AdvReac Type Severity Reaction Status Date / Time tramadol [From Ultram] Allergy Mild Nausea Verified 08/06/21 17:10 Review of Systems ROS Statement: Those systems with pertinent positive or pertinent negative responses have been documented in the HPI. ROS Other: All systems not noted in ROS Statement are negative. Past Medical History Past Medical History: Cancer, Hypertension, Osteoarthritis (OA), Prostate Disorder Additional Past Medical History / Comment(s): Prostate cancer, "spots on lungs", anemia, recent dizziness-using a walker, brain cancer History of Any Multi-Drug Resistant Organisms: None Reported Past Surgical History: Bladder Surgery, Orthopedic Surgery Additional Past Surgical History / Comment(s): rt Knee arthroscopy, 02/2021 biopsy of bladder and prostate then 2 days later had surgery to repair bladder, Past Anesthesia/Blood Transfusion Reactions: No Reported Reaction Past Psychological History: No Psychological Hx Reported Smoking Status: Current every day smoker Past Alcohol Use History: None Reported Past Drug Use History: None Reported - Past Family History Mother Family Medical History: No Reported History General Exam Limitations: no limitations General appearance: alert, in no apparent distress Head exam: Present: atraumatic, normocephalic, normal inspection Eye exam: Present: normal appearance, PERRL, EOMI, other (Exophthalmos involving the right eye only). Absent: scleral icterus, conjunctival injection, periorbital swelling ENT exam: Present: normal exam, normal oropharynx, mucous membranes moist, TM's normal bilaterally, normal external ear exam. Absent: mucous membranes dry Neck exam: Present: normal inspection, full ROM. Absent: tenderness, meningismus, lymphadenopathy Respiratory exam: Present: normal lung sounds bilaterally. Absent: respiratory distress, wheezes, rales, rhonchi, stridor Cardiovascular Exam: Present: normal rhythm, tachycardia, normal heart sounds. Absent: systolic murmur, diastolic murmur, rubs, gallop, clicks GI/Abdominal exam: Present: soft, normal bowel sounds. Absent: distended, tenderness, guarding, rebound, rigid Extremities exam: Present: normal inspection, full ROM, normal capillary refill. Absent: tenderness, pedal edema, joint swelling, calf tenderness Back exam: Present: normal inspection Neurological exam: Present: alert, oriented X3, CN II-XII intact. Absent: altered, motor sensory deficit, reflexes normal Psychiatric exam: Present: normal affect, normal mood Skin exam: Present: warm, dry, intact, normal color. Absent: rash Course Vital Signs 08/06/21 17:07 Temperature 98.2 F Pulse Rate 132 H Respiratory 20 Rate Blood Pressure 146/82 O2 Sat by Pulse 100 Oximetry - Consultations Consultation #1: Case discussed with [facility]. Discussed with the neurosurgeon, Dr. Ramirez. Dr. Gregory the ER physician as accepting physician for transfer Medical Decision Making - Medical Decision Making Progressive lesions in the brain due to metastases. Right frontal/parietal area, possible areas of hemorrhage, progression since last computed tomography scan. Patient be transferred to require call for neurosurgical evaluation. Touch base with the neurosurgeon on-call, to Ashley. Patient sent for ER to ER transfer. - EKG Data EKG Comments: EKG done at 1833 and read by the ED attending physician reveals sinus tachycardia with intraventricular conduction delay, ventricular rate of 109, normal axis, no evidence of acute ST or T-wave changes. Baseline artifact. Disposition Clinical Impression: Mass, brain, Dizziness, Cigarette smoker Narrative: Right frontoparietal brain mass with areas of hemorrhage suspected Disposition: OTHER INSTITUTION NOT DEFINED Condition: Stable Time of Disposition: 18:41 - Out of Hospital Transfer - Req. Specs Out of Hospital Transfer - Requested Specifics: Other Emergency Center
[2021-08-06 18:39] LABS: Anisocytosis Slight; Basophils % (A) 1 %; Eosinophils % (A) 0 %; HCT 27.2 % (39.0-53.0); HGB 8.7 gm/dL (13.0-17.5); Hypochromasia Slight; Lymphocytes % (A) 20 %; MCH 28.6 pg (25.0-35.0); MCHC 31.9 g/dL (31.0-37.0); MCV 89.5 fL (80.0-100.0); Mean Platelet Volume 8.6; Monocytes # (A) 0.2 k/uL (0-1.0); Monocytes % (A) 5 %; Neutrophils # (A) 3.6 k/uL (1.3-7.7); Neutrophils % (A) 72 %; Platelet Count 137 k/uL (150-450); Poikilocytosis Slight; RBC 3.04 m/uL (4.30-5.90)
[2021-08-06 18:46] LABS: Prothrombin Time 10.8 sec (9.0-12.0)
[2021-08-06 18:47] LABS: ALT 10 U/L (4-49); AST 140 U/L (17-59); African American GFR (CKD) >90 (>60 ml/min/1.73 sqM); Alkaline Phosphatase 355 U/L (38-126); Anion Gap 9 mmol/L; Blood Urea Nitrogen 12 mg/dL (9-20); Calcium 9.9 mg/dL (8.4-10.2); Carbon Dioxide 28 mmol/L (22-30); Chloride 90 mmol/L (98-107); Glucose 120 mg/dL (74-99); Non-African American GFR(CKD) >90 (>60 ml/min/1.73 sqM); Potassium 3.8 mmol/L (3.5-5.1); Sodium 127 mmol/L (137-145); Total Bilirubin 0.8 mg/dL (0.2-1.3); Total Protein 7.4 g/dL (6.3-8.2)
[2021-08-06 18:53] VITALS: BP 146/96; PULSE 110; RESP 18; TEMP 98
== END 2021-08-06 19:50 | disposition other institution (70) ==
LOC: EC 15:46
DX: C79.31 Secondary malignant neoplasm of brain (principal); C61 Malignant neoplasm of prostate; F17.210 Nicotine dependence, cigarettes, uncomplicated; I10 Essential (primary) hypertension
CPT/HCPCS: 36415; 93005; 80053; 84484; 85025; 85610; 85730; 99285; 96374; 96361; J1100

== ENCOUNTER → 2021-08-06 | Outpatient (CLI) | payer OTHER ==
--- NOTE | 2021-08-06 15:19 | CT ---
EXAMINATION TYPE: CT brain wo/w con DATE OF EXAM: 08/06/2021 COMPARISON: CT brain March 17, 2021 HISTORY: RT SIDE EYE BULGING. HX OF BRAIN, PROSTATE, LUNG AND BONE Ca CT DLP: 2325.60 mGycm Automated exposure control for dose reduction was used. CONTRAST: CT scan of the head is performed without and with IV Contrast, patient injected with 100 mL of Isovue 300. FINDINGS: Persistent heterogeneous hyperdense material in the periphery of the right frontal parietal region along with the anterior aspect and posterior aspect. This shows heterogeneous postcontrast en hancement. There is additional involvement outside the calvarium high right frontal parietal region r edemonstrated. There is suspected some interval growth or more prominence from prior for example jeannette uring 12 mm in thickness over the anterior right frontal lobe axial image 42. This extends along the anterior aspect of the hemispheric fissure axial image 40. Slightly more prominent extracranial invol vement high left posterior pleural region is now seen axial image 53 for reference. No bony destructi on is identified. Increased opacification of the right mastoid air cells is seen. Ventricles and sulc i within normal limits in size for patient's age. Mild to moderate mucosal thickening in the right frontal and anterior ethmoid sinuses along with mild to minimal mucosal thickening along the posterior right sphenoid sinus. Confirmation of slight propt osis to the right globe without intraorbital mass identified. New hyperdense enhancing material of th e anterior right temporal region extra-axial spaces. IMPRESSION: Extra-axial hyperdense abnormal area or probable tissue shows interval progression from p rior CT. No bony destruction is seen. There is involvement intracranial and extracranial aspects. Con marine superintendent neoplasm such as lymphoma or leptomeningeal spread of neoplasm. Correlation with workup perform ed after prior CT is advised. Areas of acute hemorrhage cannot be entirely excluded though this is fe lt extremely unlikely given the above abnormalities.
== END | disposition home or self-care (01) ==
LOC: RADCTMAIN 14:15
PROVIDERS: ATTEND Internal Medicine Hematology & Oncology
DX: R90.89 Other abnormal findings on diagnostic imaging of central nervous system (principal); H57.89 Other specified disorders of eye and adnexa; Z85.46 Personal history of malignant neoplasm of prostate; Z85.830 Personal history of malignant neoplasm of bone; Z85.118 Personal history of other malignant neoplasm of bronchus and lung; Z85.841 Personal history of malignant neoplasm of brain
CPT/HCPCS: 70470; Q9967